=== PATIENT | female | born 1950 | race Caucasian/White ===

== ENCOUNTER → 2017-02-25 | Outpatient (CLI) | payer BC, MEDICARE ==
[2017-02-25 20:51] LABS: Basophils # (A) 0.1 k/uL (0-0.2); Basophils % (A) 1 %; CH 31.1; CHCM 32.7; Eosinophils # (A) 0.7 k/uL (0-0.7); Eosinophils % (A) 8 %; HCT 34.4 % (34.0-46.0); HDW 2.22; HGB 11.6 gm/dL (11.4-16.0); Luc # (Auto) 0.23; Luc % (Auto) 3; Lymphocytes % (A) 23 %; MCH 32.4 pg (25.0-35.0); MCHC 33.9 g/dL (31.0-37.0); MCV 95.5 fL (80.0-100.0); Mean Platelet Volume 7.1; Monocytes # (A) 0.6 k/uL (0-1.0); Monocytes % (A) 7 %; Neutrophils % (A) 58 %; RDW 12.2 % (11.5-15.5); WBC 8.6 k/uL (3.8-10.6); WBC (Perox) 8.87
[2017-02-25 21:08] LABS: Calcium 9.3 mg/dL (8.4-10.2); Potassium 4.5 mmol/L (3.5-5.1); Total Bilirubin 0.3 mg/dL (0.2-1.3); Total Protein 6.5 g/dL (6.3-8.2)
[2017-02-25 21:46] LABS: Erythrocyte Sedimentation Rate 19 mm/hr (0-20)
[2017-02-27 13:58] LABS: Gliadin AB IgA, Deaminated 5 UNITS (<20); Gliadin AB IgG, Deaminated 2 UNITS (<20)
== END | disposition home or self-care (01) ==
LOC: MMGSC 15:18
PROVIDERS: ATTEND Family Medicine
DX: N39.0 Urinary tract infection, site not specified (principal); I10 Essential (primary) hypertension; R19.7 Diarrhea, unspecified
CPT/HCPCS: 36415; 80053; 80061; 82784; 83516; 84439; 84443; 85025; 85652; 87086

== ENCOUNTER 2019-10-28 08:59 | Day surgery (SDC) | payer MEDICARE ==
[2019-10-18 12:39] VITALS: BMI 35.6
[~2019-10-28 08:59] MED LIST: LACTATED RINGERS 1,000 ML IV SCH; LIDOCAINE 1% 20 ML VIAL (10MG/ML) FOR IV START INTRADERMA PRN
[2019-10-28 09:24] VITALS: TEMP 97.7
[2019-10-28 09:24] LABS: Glucose,Whole Blood 124 mg/dL (75-99)
[2019-10-28] MEDS ORDERED: PROPOFOL 10 MG/ML 20 ML VIAL IV ONE (09:54)
--- NOTE | 2019-10-28 10:42 | P.PCN ---
Date of Procedure: 10/28/19 Description of Procedure: BRIEF HISTORY: Patient is a 69-year-old female who presents for outpatient colonoscopy for evaluation of IBS and anemia. Patient has long-standing history of IBS worsening 2-3 loose bowel movements daily. Currently treated with Imodium therapy. Denies any blood per rectum. She believes last colonoscopy was 4 years ago. PROCEDURE PERFORMED: Colonoscopy with biopsies. PREOPERATIVE DIAGNOSIS: Anemia, irritable bowel syndrome, altered bowel function, last colonoscopy 4 years ago per her recollection. ESTIMATED BLOOD LOSS: Minimal. IV sedation per Anesthesia. PROCEDURE: After informed consent was obtained, the patient, was brought into the endoscopy unit. IV sedation was administered by Anesthesia under continuous monitoring. Digital rectal examination was normal. Initially the Olympus CF-190 flexible video colonoscope was then inserted in the rectum, gradually advanced into the cecum without any difficulty. Careful examination was performed as the scope was gradually being withdrawn. Ileocecal valve and the appendiceal orifice were visualized and appeared normal. Prep was excellent. Mucosa of the cecum, ascending colon, transverse colon, descending colon, sigmoid colon, and rectum appeared grossly normal, however there was moderate to severe erythema, nodularity and friability from the cecum to the mid transverse colon. Mild to moderate erythema was noted in the distal half of the transverse colon to the proximal sigmoid colon. The terminal ileum appeared normal with biopsies taken. Biopsies were also taken of the cecum, ascending colon, transverse colon, descending colon, sigmoid and rectum. Retroflexion was performed in the rectum and no lesions were seen. The patient tolerated the procedure well. IMPRESSION: Colitis, with moderate to severe colitis noted in the cecum, ascending and proximal transverse colon and mild to moderate colitis noted in the distal transverse colon, descending colon and proximal sigmoid. Random biopsies taken throughout the colon and terminal ileum. RECOMMENDATIONS: Findings of this examination were discussed with the patient and her [id number]. Patient will be started on a steroid taper. She is okay to resume diet and medications. Recommendation is that she follow up in GI clinic in 1 week for results of biopsies. Further medical management and adjustments to steroid taper will be made at that time based on symptoms as well as finding from biopsies.
[2019-10-28 10:56] VITALS: BP 150/78; PULSE 80; RESP 18
== END 2019-10-28 11:05 | disposition home or self-care (01) ==
LOC: ORWHC2ENDO 08:59
PROVIDERS: ATTEND Internal Medicine
DX: K51.90 Ulcerative colitis, unspecified, without complications (principal); D64.9 Anemia, unspecified; I10 Essential (primary) hypertension; Z79.899 Other long term (current) drug therapy; Z90.49 Acquired absence of other specified parts of digestive tract; Z96.653 Presence of artificial knee joint, bilateral
CPT/HCPCS: 88305; 45380; J2704

== ENCOUNTER → 2020-09-19 | Outpatient (CLI) | payer MEDICARE ==
--- NOTE | 2020-09-19 11:31 | MR ---
EXAMINATION TYPE: MR lumbar spine wo con DATE OF EXAM: 09/19/2020 COMPARISON: Plain film 07/27/2020 HISTORY: Low back pain TECHNIQUE: Multiplanar, multisequence images of the lumbar spine were acquired. L1-L2: Endplate discogenic marrow signal changes are present with associated spondylolysis.. Posterio r extension endplate disc bulge extends circumferentially causes some foraminal encroachment greater on the left than on the right, there is some mild anterior mass effect on the thecal sac, no signific ant spinal stenosis. L2-L3: No significant foraminal encroachment. No spinal stenosis. Posterior disc bulge causes mild an terior mass effect on the thecal sac. There is some facet arthropathy causing posterior lateral mass effect on the thecal sac. L3-L4: Posterior broad-based disc bulge contacts anterior thecal sac. No significant spinal stenosis or foraminal encroachment. Schmorl's node present superior endplate of L3. L4-L5: Listhesis contributes to cause bilateral foraminal encroachment. Facet arthropathy with hypert rophic change and ligamentum flavum causing posterior lateral mass effect on the thecal sac results i n a trefoil appearance of the thecal sac. There is some encroachment on the lateral recesses. Moderat e spinal stenosis is present. Spondylolysis is not seen with certainty. Minimal posterior broad-based disc bulge is present. L5-S1: Listhesis contributes to cause bilateral foraminal encroachment spondylolysis is suspected on the right and not as well seen on the left may be present, could be confirmed with CT. No evident dis c herniation. There is extensive facet arthropathy change. No significant spinal stenosis. Lumbar segments are intact. No paraspinal masses are identified. Conus medullaris has a normal appe arance. There is anterolisthesis grade 1 L5-S1, L4-5, retrolisthesis grade 1 L1-L2. Vacuum phenomenon is present at L1-2, L4-5, L5-S1. Numbering scheme is that of patient's prior plain film, there may b e transitional vertebral body. Loss of disc height signal is present at intervertebral levels with so me sparing of L3-4, L2-3. There is a mild spinal curvature. IMPRESSION: Degenerative disc disease, multilevel foraminal encroachment, facet arthropathy, spinal stenosis as d escribed.
== END | disposition home or self-care (01) ==
LOC: RADMRIMAIN 09:33
PROVIDERS: ATTEND Family Medicine
DX: M48.061 Spinal stenosis, lumbar region without neurogenic claudication (principal); M51.36 Other intervertebral disc degeneration, lumbar region; M47.816 Spondylosis without myelopathy or radiculopathy, lumbar region
CPT/HCPCS: 72148

== ENCOUNTER → 2020-10-18 | Outpatient (CLI) | payer MEDICARE ==
[2020-10-18 08:48] VITALS: BP 106/67; PULSE 112; RESP 16; TEMP 98.5
--- NOTE | 2020-10-18 09:16 | P.CONS ---
History of Present Illness - Reason for Consult Consult date: 10/18/20 - Chief Complaint Lower back pain - History of Present Illness This is a 70-year-old lady with history of lower back pain which started about one year ago with no precipitating events. The pain occasionally radiates down her right leg to the right foot with numbness in both feet as she states. Her pain is mostly axial which is more intense than her right leg pain. She denies any bowel or bladder dysfunction or any weakness in the lower extremities. She also denies any weight loss. The patient denies any nocturnal pain. Her pain is mostly when she stands up and ambulates and goes away when she sits down or lie down in bed. The pain has limited her daily activities. The patient has no history of diabetes and she takes only aspirin with no other anticoagulants. Past Medical History Past Medical History: Deep Vein Thrombosis (DVT), Hypertension, Musculoskeletal Disorder, Osteoarthritis (OA) Additional Past Medical History / Comment(s): DVT IN LEFT LEG- POST OP , ulcerative colitis, hypoglycemia, low back pain History of Any Multi-Drug Resistant Organisms: None Reported Past Surgical History: Appendectomy, Joint Replacement Additional Past Surgical History / Comment(s): RIGHT AND LEFT KNEE REPLACEMENT Past Anesthesia/Blood Transfusion Reactions: Postoperative Nausea & Vomiting (PONV) Smoking Status: Never smoker - Past Family History Mother Family Medical History: Cancer Father Family Medical History: Cancer Sister(s) Family Medical History: Cancer Medications and Allergies Home Medications Medication Instructions Recorded Confirmed Type Aspirin 81 mg PO DAILY 10/18/19 10/12/20 History Cholecalciferol [Vitamin D3 (25 2,000 unit PO DAILY 10/18/19 10/12/20 History Mcg = 1000 Iu)] Enalapril [Vasotec] 10 mg PO DAILY 10/18/19 10/12/20 History Hydrochlorothiazide 12.5 mg PO DAILY 10/18/19 10/12/20 History [hydroCHLOROthiazide] HYDROcodone/APAP 5-325MG [Umpire 1 tab PO TID 10/12/20 10/12/20 History 5-325] Mesalamine [Lialda] 1.2 gm PO AC-TID 10/12/20 10/12/20 History Prochlorperazine [Compazine] 5 mg PO Q8HR PRN 10/12/20 10/12/20 History rOPINIRole HCL [Requip] 1 mg PO HS 10/18/20 10/18/20 History Allergies Allergy/AdvReac Type Severity Reaction Status Date / Time Sulfa (Sulfonamide Allergy skin Verified 10/12/20 12:03 Antibiotics) peeling, burning on "inside" sulfasalazine Allergy skin Verified 10/12/20 12:04 [From Azulfidine] peeling, burning on "inside Physical Exam Vitals: Vital Signs Temp Pulse Resp BP Pulse Ox 10/18/20 08:41 98.5 F 112 H 16 106/67 97 - Constitutional General appearance: morbidly obese - EENT Eyes: PERRLA - Neurologic Neuro exam of the lower extremities showed areflexia bilaterally, normal muscle strength bilaterally Straight leg raising test negative bilaterally Mild tenderness in the lumbar paravertebral musculature bilaterally Decreased range of motion of the lumbar spine with extension but normal with flexion. Neurologic: CNII-XII intact - Psychiatric Psychiatric: A&O x's 3, appropriate affect, intact judgment & insight Results Results: Lumbar spine MRI showed severe degenerative disc disease, bilateral foraminal stenosis at the L4 5 and L5-S1 levels due to listhesis and possible spondylolysis. It also showed facet arthropathy and ligamentum flavum hypertrophy. Assessment and Plan Plan: This is a 70-year-old lady with mostly axial lower back pain and occasional radiation to the right leg with numbness and tingling in the feet bilaterally as she states. Diagnoses: Severe lumbar DDD Lumbar spondylosis without myelopathy Lumbar neural foraminal stenosis We'll plan on doing a lumbar diagnostic medial branch block for levels L4 5 and L5-S1 bilaterally under fluoroscopic guidance. The procedure was explained to the patient and her questions were answered. I thank you for the referral
== END | disposition home or self-care (01) ==
LOC: PNWHC3 08:31
PROVIDERS: ATTEND Anesthesiology
DX: M51.36 Other intervertebral disc degeneration, lumbar region (principal); M47.816 Spondylosis without myelopathy or radiculopathy, lumbar region; M48.061 Spinal stenosis, lumbar region without neurogenic claudication; M19.90 Unspecified osteoarthritis, unspecified site; I82.409 Acute embolism and thrombosis of unspecified deep veins of unspecified lower extremity; I10 Essential (primary) hypertension; Z88.2 Allergy status to sulfonamides; Z79.899 Other long term (current) drug therapy; Z79.891 Long term (current) use of opiate analgesic; Z79.82 Long term (current) use of aspirin
CPT/HCPCS: 99211

== ENCOUNTER 2020-11-17 06:14 | Day surgery (SDC) | payer MEDICARE ==
[2020-11-14 09:36] VITALS: BMI 36.0
[~2020-11-17 06:14] MED LIST changes: -LIDOCAINE 1% 20 ML VIAL (10MG/ML) FOR IV START INTRADERMA PRN
[2020-11-17 07:14] LABS: Glucose,Whole Blood 113 mg/dL (75-99)
[2020-11-17 07:17] VITALS: RESP 16; TEMP 98.4
[2020-11-17] MEDS ORDERED: methylPREDNISolone ACETATE 40 MG/ML 1 ML VIAL ONE (07:40)
[2020-11-17] MEDS ORDERED: MIDAZOLAM 2 MG/2 ML VIAL ONE (07:40)
[2020-11-17] MEDS ORDERED: ROPIVACAINE 5MG/ML 20ML VIAL ONE (07:40)
--- NOTE | 2020-11-17 07:53 | P.PCN ---
Date of Procedure: 11/17/20 Description of Procedure: Procedure: BILATERAL L4-5, L5-S1 Diagnosis: Lumbar spondylosis without myelopathy Anesthesia: Local and IV conscious sedation Imaging: Fluoroscopy was used, images where saved to the medical record The patient was seen and examined in the [facility]. Procedure risks and benefits were fully reviewed with the patient. The patient understands this is a diagnostic if local only is used, as will be the case today. The goal of the procedure is to inject medication onto the medial branch or small nerves that innervate the facet joints. In this way, we can hopefully identify which of these joints, if any, may be contributing to their pain. Informed consent for procedure was obtained. The patient was taken into the office fluoroscopy procedure room and placed prone on the table. A pillow was placed under the abdomen to reduce lumbar lordosis. Vital signs were closely monitored during the procedure. The skin over the area was prepped with Betadine X 3 and draped in usual sterile manner. Sterile technique was observed throughout procedure. Under biplanar fluoroscopic guidance, the target injection area of the L4, L5, Sacral Ala were targeted. A 25 gauge 31/2 inch spinal needle was then placed at the most medial and superior aspect of the transverse process near the "eye of the Mike dog". Aspiration for blood was negative. 1 cc of 0.5% Ropivacaine along with a total of 40 mg of Depo-Medrol was injected into the targeted areas separately. [place] were withdrawn intact. No complications were noted during the procedure. The patient tolerated the procedure well. The patient was placed in supine position and transferred to the recovery area for observation and remained stable until discharged home. Home discharge instructions were given to the patient by the staff. We'll plan to repeat the injection in 2 weeks' time if she has good benefit. I discussed with the patient detail that she should pay attention to her short-term relief during the procedure date. No fentanyl was given today..
[2020-11-17] MEDS ORDERED: IV FLUID CONTINUATION 1,000 ML IV ONE (07:58)
[2020-11-17 08:17] VITALS: BP 119/76; PULSE 92
--- NOTE | 2020-11-17 09:48 | FL ---
Fluoroscopy HISTORY: Pain 8 seconds fluoroscopy time supplied to the referring clinician. 5 intraoperative C-arm images docume nt the procedure. See dictated report from anesthesia.
== END 2020-11-17 08:39 | disposition home or self-care (01) ==
LOC: ORPAIN 06:14
PROVIDERS: ATTEND Hospitalist
DX: M47.816 Spondylosis without myelopathy or radiculopathy, lumbar region (principal); Z88.2 Allergy status to sulfonamides; I10 Essential (primary) hypertension; Z86.718 Personal history of other venous thrombosis and embolism; M19.90 Unspecified osteoarthritis, unspecified site; Z79.82 Long term (current) use of aspirin; Z79.891 Long term (current) use of opiate analgesic; Z79.899 Other long term (current) drug therapy
CPT/HCPCS: 64493; 64494; J2250; J1030; J2795

== ENCOUNTER → 2020-12-06 | Outpatient (CLI) | payer MEDICARE ==
[2020-12-06 10:22] VITALS: BP 119/81; PULSE 109; RESP 16; TEMP 98.3
--- NOTE | 2020-12-06 10:37 | P.PN ---
Subjective Progress Note Date: 12/06/20 This is a follow-up visit for this 70 years old female with a chronic history of severe low back pain, she is the closed with lumbar spondylosis with lumbar facet arthropathy, and lumbar degenerative disc disease and lumbar foraminal stenosis, recently with did diagnostic medial branch block lumbar area at L4 5 and L5-S1, patient didn't get more than 80% improvement in her low back pain after injection on the pain relief was only for short-term, she denies any motor or sensory deficits denies any fever or night sweats and there is no change in the bowel movement or urination Objective - Vital Signs Vital signs: Vital Signs Temp 98.3 F 12/06/20 10:16 Pulse 109 H 12/06/20 10:16 Resp 16 12/06/20 10:16 BP 119/81 12/06/20 10:16 Pulse Ox 99 12/06/20 10:16 - Exam Physical Examinations : -Constitutiona : Cooperative , not in acute distress . -HEENT : nech : supple , no Lymphadenopathy , normal thyroid size . : eyes : no ptosis , no icterus, no photophobia . - neurologic : Cranial nerve II to XII intact , no focal neurological deffecit . -psychatric : alert , oriented X 3 , appropriate affect , intact judgment and insight . -Lymphatic : no Lymphadenopathy . - musculoskeltal : . Lumber spine moter stegnth lower extremities ,thigh and legs 5/5 Right side , 5/5 Left side deep tendon reflexes : normal Knee Jerk , normal ankle Jerk lumber facet Loading Test =positive Right , posiutive Left Range of motion of the lumbar spine Flexion 30 degrees, extension 10 degrees strait leg raising test = positive at 45 degree Fabere test= positive Right , and positive LT . . Assessment and Plan Plan: Assessment and plan=1-lumbar spondylosis with lumbar facet arthropathy without myelopathy 2-lumbar degenerative disc disease. 3-lumbar foraminal stenosis. Patient had excellent pain relief after the first diagnostic medial branch block (80 % ) She will be good candidate to have repeat diagnostic medial branch block at L3, L4, L5 ( 2 target the L4 5, and L5-S1 ). - PQRS measures = - Patient's medications are documented in the chart. -Tobacco use is negative and counseling.Given. -Patient's has not received pneumococcal vaccine. -Advanced care planning discussed, patient not eligible. -Opiate contract not signed. -Pain positive and follow-up visit/procedure is scheduled. -Patient's blood pressure measured [ 119/81] , and documented in the record ,and patient will follow up with the primary care. -Patient's weight was measured and body mass index [ 35 ] above the normal limits and counseling was done. and patient instructed to follow-up with the primary care physician. -Patient was not identified as an unhealthy alcohol user Time with Patient: Less than 30
== END ==
LOC: PNWHC3 10:07
PROVIDERS: ATTEND Specialist
DX: M51.36 Other intervertebral disc degeneration, lumbar region (principal); M48.061 Spinal stenosis, lumbar region without neurogenic claudication; M47.816 Spondylosis without myelopathy or radiculopathy, lumbar region
CPT/HCPCS: 99211

== ENCOUNTER 2021-01-05 07:33 | Day surgery (SDC) | payer MEDICARE ==
[2021-01-02 12:38] VITALS: BMI 35.6
[2021-01-05 08:30] VITALS: TEMP 97
[2021-01-05 08:42] LABS: Glucose,Whole Blood 118 mg/dL (75-99)
[2021-01-05] MEDS ORDERED: LACTATED RINGERS 1,000 ML IV ONE (08:43)
[2021-01-05] MEDS ORDERED: TRIAMCINOLONE ACETONIDE 40 MG/ML 1 ML VIAL ONE (09:10)
[2021-01-05] MEDS ORDERED: IOPAMIDOL M200 10 ML VIAL ONE (09:10)
[2021-01-05] MEDS ORDERED: fentaNYL (PF) 50 MCG/ML 2 ML AMP ONE (09:10)
[2021-01-05] MEDS ORDERED: ROPIVACAINE 5MG/ML 20ML VIAL ONE (09:10)
[2021-01-05] MEDS ORDERED: MIDAZOLAM 2 MG/2 ML VIAL ONE (09:10)
--- NOTE | 2021-01-05 09:25 | P.PCN ---
Date of Procedure: 01/05/21 Description of Procedure: Procedure: BILATERAL L4-5, L5-S1 #2 Diagnosis: Lumbar spondylosis without myelopathy Anesthesia: Local and IV conscious sedation Imaging: Fluoroscopy was used, images where saved to the medical record The patient was seen and examined in the [facility]. Procedure risks and benefits were fully reviewed with the patient. The patient understands this is a diagnostic if local only is used, as will be the case today. The goal of the procedure is to inject medication onto the medial branch or small nerves that innervate the facet joints. In this way, we can hopefully identify which of these joints, if any, may be contributing to their pain. Informed consent for procedure was obtained. The patient was taken into the office fluoroscopy procedure room and placed prone on the table. A pillow was placed under the abdomen to reduce lumbar lordosis. Vital signs were closely monitored during the procedure. The skin over the area was prepped with Betadine X 3 and draped in usual sterile manner. Sterile technique was observed throughout procedure. Under biplanar fluoroscopic guidance, the target injection area of the L4, L5, Sacral Ala were targeted. A 25 gauge 31/2 inch spinal needle was then placed at the most medial and superior aspect of the transverse process near the "eye of the Mike dog". Aspiration for blood was negative. 1 cc of 0.5% Ropivacaine along with a total of 40 mg of Depo-Medrol was injected into the targeted areas separately. [place] were withdrawn intact. No complications were noted during the procedure. The patient tolerated the procedure well. The patient was placed in supine position and transferred to the recovery area for observation and remained stable until discharged home. Home discharge instructions were given to the patient by the staff. We'll plan to repeat the injection in 2 weeks' time if she has good benefit. I discussed with the patient detail that she should pay attention to her short-term relief during the procedure date. No fentanyl was given today..
[2021-01-05] MEDS ORDERED: IV FLUID CONTINUATION 1,000 ML IV ONE (09:30)
[2021-01-05 09:33] VITALS: RESP 16
--- NOTE | 2021-01-05 09:44 | FL ---
EXAMINATION TYPE: FL guided pain mgmt statistic DATE OF EXAM: 01/05/2021 HISTORY: Fluoroscopy time 9 seconds of fluoroscopy provided. IMPRESSION: 1. Fluoroscopy time.
[2021-01-05 09:46] VITALS: BP 132/85; PULSE 82
== END 2021-01-05 10:15 | disposition home or self-care (01) ==
LOC: ORPAIN 07:33
PROVIDERS: ATTEND Anesthesiology
DX: M47.816 Spondylosis without myelopathy or radiculopathy, lumbar region (principal); I10 Essential (primary) hypertension; M19.90 Unspecified osteoarthritis, unspecified site; Z79.899 Other long term (current) drug therapy; Z86.718 Personal history of other venous thrombosis and embolism; Z88.2 Allergy status to sulfonamides
CPT/HCPCS: 64493; 64494; J2250; J3301; J3010; Q9966; J2795

== ENCOUNTER → 2021-01-15 | Outpatient (CLI) | payer MEDICARE ==
[2021-01-15 08:37] VITALS: BP 155/81; PULSE 92; RESP 16; TEMP 97.7
--- NOTE | 2021-01-15 08:48 | P.PN ---
Subjective Progress Note Date: 01/15/21 Violeta a 78-year-old female who presents today for follow-up after having 2 lumbar diagnostic medial branch blocks. She reports that she had greater than 90% relief from her low back pain. She reports injections have improved her quality of life significantly. She is able to do more around the house as well as exercise ride a bike. She is looking forward to having radiofrequency ablation of the lumbar spine. She denies any side effects in the injections. She has no new symptoms. She denies any radiation down her extremities. The back pain is described as low back pain without radiation to the legs. There is pain with standing for long present time or bending forward or extending her spine. The patient describes an aching sensation. She also complains of lower external pain below the knees when she is laying down at night. She reports that sitting the center better standing alleviates her pain. I discussed with her that this could be signs of vascular claudication. She has an appointment with her primary care physician today. I've asked her to specifically asked the doctor about that and potentially order an ultrasound of the lower extremity vasculature to evaluate for peripheral vascular disease. Objective - Vital Signs Vital signs: Vital Signs Temp 97.7 F 01/15/21 08:35 Pulse 92 01/15/21 08:35 Resp 16 01/15/21 08:35 BP 155/81 01/15/21 08:35 Pulse Ox 99 01/15/21 08:35 - Exam General: Awake and alert oriented 3 no distress Respiratory exam: No audible wheezing no accessory muscle usage Cervical spine: Normal alignment, Spurling's negative, facet loading negative, Architectural Technician strength is 5/5, sheikh negative Lumbar spine: Loss of lumbar lordosis, normal alignment, tender to palpation over bilateral paraspinal muscles, facet loading is positive bilaterally. Straight leg raise is negative. Limited range of motion due to pain with flexion, extension and side bending. Neuro exam: Normal sensation in bilateral upper extremities, deep tendon reflexes are 2+ bilateral upper extremities. Normal sensation in bilateral lower extremities. Deep tendon reflexes are 2+ in lower extremities Psych exam: Cooperative, appropriate mood Assessment and Plan Assessment: #1 spondylosis of lumbar without myelopathy #2 obesity #3 possible peripheral vascular disease Plan: We'll schedule her for bilateral radio frequency ablation of the L4 5 and L5-S1 medial branches. We'll ask her to follow-up with her primary care physician regarding potential for vascular claudication. I've explained this to the patient detail. We'll see her back for the procedure as soon as possible I have spent 23 minutes on patient care today. The time was used to review the medical records including relevant urine studies and Prescription history (MAPs), review of the available imaging, evaluation and examination of the patient, coordination of care with the medical staff and if applicable referring physicians, as well as creation of the medical record. Maps were checked and appropriate, opioid start talking form is on file and updated, urine drug screens of been appropriate and have been reviewed.
== END ==
LOC: PNWHC3 08:21
PROVIDERS: ATTEND Hospitalist
DX: M47.816 Spondylosis without myelopathy or radiculopathy, lumbar region (principal); E66.9 Obesity, unspecified; Z68.35 Body mass index [BMI] 35.0-35.9, adult
CPT/HCPCS: 99211

== ENCOUNTER 2021-02-23 06:24 | Day surgery (SDC) | payer MEDICARE ==
[2021-02-21 14:52] VITALS: BMI 36.6
[2021-02-23 07:14] VITALS: RESP 16; TEMP 96.8
[2021-02-23] MEDS ORDERED: LACTATED RINGERS 1,000 ML IV ONE (07:17)
[2021-02-23 07:18] LABS: Glucose,Whole Blood 104 mg/dL (75-99)
[2021-02-23] MEDS ORDERED: MIDAZOLAM 2 MG/2 ML VIAL ONE (08:55)
[2021-02-23] MEDS ORDERED: fentaNYL (PF) 50 MCG/ML 2 ML AMP ONE (08:55)
[2021-02-23] MEDS ORDERED: ROPIVACAINE 5MG/ML 20ML VIAL ONE (08:58)
[2021-02-23] MEDS ORDERED: LIDOCAINE 1% INJ 10MG/ML (20 ML MDV) ONE (08:58)
--- NOTE | 2021-02-23 09:29 | P.PCN ---
Date of Procedure: 02/23/21 Description of Procedure: PREOPERATIVE DIAGNOSIS: Lumbar Spondylosis POSTOPERATIVE DIAGNOSIS: Same PROCEDURES: Radiofrequency ablation of the L3, L4, L5 medial branches with fluoroscopic guidance bilaterally SURGEON: Yony Nieves MD. ANESTHESIA: Lidocaine 1% 5 mL, Moderate sedation with anesthesia team EBL: Minimal Fluoroscopy was used for the procedure and images were saved in the radiology portion of the chart. PROCEDURE INDICATION: The patient with low back pain secondary to lumbar facet arthropathy who had more than 50% relief of pain with previous diagnostic lumbar medial branch block X2. PROCEDURE DESCRIPTION / TECHNIQUE: The patient was seen and identified in the preoperative area. Risks, benefits, complications, including but not limited to risk of infection ,bleeding , allergic reactions to the medications and incomplete pain relief , and alternatives were discussed with the patient, the patient agreed to proceed with the procedure and signed the consent. IV was started. The operative site was marked. Patient was taken to the OR and time out was completed. The patient was placed in the prone position on the procedure table. The lumbar area was prepped and draped in the usual sterile fashion. . Vital signs were closely monitored during the procedure .IV sedation was used during the procedure to decrease patients anxiety. Using AP and then oblique fluoroscopy, the "eye of the Mike dog" corresponding to the connection between the superior and transverse articular processes of the [] L4 and L5 as well as the sacral ala were identified, marked, and localized with 1% lidocaine. Subsequently, an 18 gauge 150 radiofrequency jovon martina with a 10-mm active tip was advanced guided by fluoroscopy to the identified target at each site. Needle positioning was confirmed on AP, oblique and lateral fluoroscopy. Motor testing at 2.5 Hz was done with paraspinal muscle stimulation only, and no radicular symptoms down the legs. Then 1 mL 0.5% bupivacaine was injected in each site. Radiofrequency thermocoagulation at 80 degrees celsius for 90 seconds was then performed. [place] were removed. Sterile dressings were applied. COMPLICATIONS: No acute complications. DISPOSITION / PLANS: The patient was placed in a supine position and transferred to the recovery area in a stable condition for observation and was discharged from the recovery room after meeting discharge criteria. Home discharge instructions given to the patient by the staff. The patient will follow up in clinic in 4 weeks.
[2021-02-23] MEDS ORDERED: IV FLUID CONTINUATION 1,000 ML IV ONE (09:36)
[2021-02-23 09:39] VITALS: PULSE 80
[2021-02-23 10:01] VITALS: BP 131/74
--- NOTE | 2021-02-23 12:39 | FL ---
Fluoroscopy HISTORY: Pain 23 seconds fluoroscopy time supplied to the referring clinician. 6 intraoperative C-arm images docum ent the procedure. See dictated report from anesthesia.
== END 2021-02-23 10:03 ==
LOC: ORPAIN 06:24
PROVIDERS: ATTEND Anesthesiology
DX: M47.816 Spondylosis without myelopathy or radiculopathy, lumbar region (principal); I10 Essential (primary) hypertension; Z86.718 Personal history of other venous thrombosis and embolism; Z87.19 Personal history of other diseases of the digestive system; Z79.899 Other long term (current) drug therapy; Z88.2 Allergy status to sulfonamides; Z88.8 Allergy status to other drugs, medicaments and biological substances
CPT/HCPCS: 64635; 64636; J2250; J2001; J3010; J2795

== ENCOUNTER → 2021-03-26 | Outpatient (CLI) | payer MEDICARE ==
--- NOTE | 2021-03-26 09:58 | P.PN ---
Subjective Progress Note Date: 03/26/21 This is a follow-up visit for this 70 years old female with a chronic history of severe low back pain, she is Diagnosed with lumbar spondylosis with lumbar facet arthropathy, and lumbar degenerative disc disease ,and lumbar foraminal stenosis, status post RFA medial branch block lumbar area at L4 5 and L5-S1, patient d get significant improvement in her low back pain , she continued to have some low back pain with radiation and numbness and tingling sensation in the lower extremities initially at night and especially after activity, she denies any motor or sensory deficits denies any fever or night sweats and there is no change in the bowel movement or urination Physical Examinations : -Constitutiona : Cooperative , not in acute distress . -HEENT : nech : supple , no Lymphadenopathy , normal thyroid size . : eyes : no ptosis , no icterus, no photophobia . - neurologic : Cranial nerve II to XII intact , no focal neurological deffecit . -psychatric : alert , oriented X 3 , appropriate affect , intact judgment and insight . -Lymphatic : no Lymphadenopathy . - musculoskeltal : . Lumber spine moter stegnth lower extremities ,thigh and legs 5/5 Right side , 5/5 Left side deep tendon reflexes : normal Knee Jerk , normal ankle Jerk lumber facet Loading Test =positive Right , posiutive Left Range of motion of the lumbar spine Flexion 30 degrees, extension 10 degrees strait leg raising test = positive at 45 degree Fabere test= positive Right , and positive LT . Tenderness over the sacroiliac joint bilaterally Assessment and Plan Plan: Assessment and plan=1-lumbar spondylosis with lumbar facet arthropathy without myelopathy 2-lumbar degenerative disc disease. 3-lumbar foraminal stenosis. Status post RFA medial branch lumbar area, and currently having radicular symptoms mostly secondary to lumbar degenerative disc disease and lumbar foraminal stenosis, could benefit from lumbar epidural steroid injection at L4 5 or L5-S1 under fluoroscopy guidance. - PQRS measures = - Patient's medications are documented in the chart. -Tobacco use is negative and counseling.Given. -Patient's has not received pneumococcal vaccine. -Advanced care planning discussed, patient not eligible. -Opiate contract not signed. -Pain positive and follow-up visit/procedure is scheduled. -Patient's blood pressure measured [ 159/98 ] , and documented in the record ,and patient will follow up with the primary care. -Patient's weight was measured and body mass index [ 36 ] above the normal limits and counseling was done. and patient instructed to follow-up with the primary care physician. -Patient was not identified as an unhealthy alcohol user
[2021-03-26 10:03] VITALS: BP 159/98; PULSE 90; RESP 18; TEMP 97.7
== END ==
LOC: PNWHC3 09:29
PROVIDERS: ATTEND Specialist
DX: M47.816 Spondylosis without myelopathy or radiculopathy, lumbar region (principal); M51.36 Other intervertebral disc degeneration, lumbar region; M48.061 Spinal stenosis, lumbar region without neurogenic claudication; Z98.890 Other specified postprocedural states; Z88.2 Allergy status to sulfonamides
CPT/HCPCS: 99211

== ENCOUNTER 2021-04-19 06:08 | Day surgery (SDC) | payer MEDICARE ==
[2021-04-16 16:02] VITALS: BMI 36.6
[2021-04-19 06:42] VITALS: RESP 16; TEMP 97.5
[2021-04-19] MEDS ORDERED: ROPIVACAINE 5MG/ML 20ML VIAL ONE (07:11)
[2021-04-19] MEDS ORDERED: TRIAMCINOLONE ACETONIDE 40 MG/ML 1 ML VIAL ONE (07:11)
[2021-04-19] MEDS ORDERED: MIDAZOLAM 2 MG/2 ML VIAL ONE (07:11)
[2021-04-19] MEDS ORDERED: IOPAMIDOL M200 10 ML VIAL ONE (07:11)
[2021-04-19] MEDS ORDERED: fentaNYL (PF) 50 MCG/ML 2 ML AMP ONE (07:11)
--- NOTE | 2021-04-19 07:27 | P.PCN ---
Date of Procedure: 04/19/21 Surgeon: Be Lara Pathology: none sent Condition: stable Disposition: PACU Description of Procedure: PREOPERATIVE DIAGNOSIS: 1-Lumbar radiculopathy /lumbar stenosis 2- Lumber Degenerative Disc Diseases. POSTOPERATIVE DIAGNOSIS: 1-Lumbar radiculopathy/lumbar stenosis 2-Lumbar Degenerative Disc Diseases PROCEDURE 1. Lumbar epidural steroid injection under fluoroscopic guidance at the L4-5 l evel. 2. Lumbar epidurogram. ANESTHESIA: Local with 1% lidocaine; and IV moderate conscious sedation with Versed and fentanyl EBL: Minimal PROCEDURE INDICATION: The patient with low back pain and radiculitis symptoms unresponsive to conservative treatment. Fluoroscopy was used to optimize visualization of the needle placement and to maximize safety. PROCEDURE DESCRIPTION / TECHNIQUE: The patient was seen and identified in the preoperative area. Risks, benefits, complications including but not limited to infections ,bleeding ,allergic reaction to the medications ,nerve damage and not complete pain relief , and alternatives were discussed with the patient. The patient agreed to proceed with the procedure and signed the consent. IV was started, and vital signs were stable. Patient was taken to the OR and time out was completed. The patient was placed in the prone position on procedure table and a pillow was placed under the abdomen to reduce lumbar lordosis. The lumbosacral area was prepped and draped in the usual sterile fashion with ChloraPrep.Patient was closely monitored during the procedure. Conscious sedation was used during the procedure to decrease patients anxiety. Vital signs were monitered during the entire procedure. Using anterior-posterior fluoroscopy, the L4-5 interlaminar space was identified and the skin over this site was marked and then infiltrated with 1% lidocaine subcutaneously. Subsequently, a 20-gauge Tuohy epidural needle was inserted and advanced toward the epidural space using the Loss of resistance to air technique and guided by AP and lateral fluoroscopy. The correct needle position in the epidural space was verified with the injection of 1 mL of the water soluble contrast dye Omnipaque 180 contrast and observing an excellent epidurogram with the epidural spread of the dye, after negative aspiration for blood and CSF and in the absence of paresthesias. Again after negative aspiration, a 8 ml mixture containing 40 mg of Kenalog and 5 ml of preservative free Normal Saline, and 2 ml of preservative free ropivacaine 0.5% solution was injected and a washout of epidurogram was seen. Needle was withdrawn intact, skin was cleansed, and bandages were applied. patient tolerated procedure well and was transferred to PACU in stable condition.A copy of the needle placement picture was saved to the fluoroscopy machine. COMPLICATIONS: None DISPOSITION / PLANS: The patient was placed in a supine position and transferred to the recovery area in a stable condition for observation. There was no evidence of lower extremity motor or sensory deficit after the procedure. Patient was discharged from the recovery room after meeting discharge criteria. Home discharge instructions were given to the patient by the staff. The patient was reexamined prior to discharge. The patient will schedule a follow up in the clinic in 2-4 weeks.
[2021-04-19] MEDS ORDERED: IV FLUID CONTINUATION 1,000 ML IV ONE (07:28)
[2021-04-19 07:44] VITALS: BP 115/74; PULSE 70
--- NOTE | 2021-04-19 09:15 | FL ---
EXAMINATION TYPE: FL guided pain mgmt statistic DATE OF EXAM: 04/19/2021 HISTORY: Fluoroscopy time 7 seconds of fluoroscopy provided. IMPRESSION: 1. Fluoroscopy time.
== END 2021-04-19 08:00 | disposition home or self-care (01) ==
LOC: ORPAIN 06:08
PROVIDERS: ATTEND Anesthesiology
DX: M51.16 Intervertebral disc disorders with radiculopathy, lumbar region (principal); Z88.2 Allergy status to sulfonamides
CPT/HCPCS: 62323; J2250; J3301; J3010; Q9966; J2795

== ENCOUNTER → 2021-05-09 | Outpatient (CLI) | payer MEDICARE ==
[2021-05-09 10:52] VITALS: BP 130/80; PULSE 103; RESP 18; TEMP 98.2
--- NOTE | 2021-05-09 11:01 | P.PAINPG ---
Subjective Progress Note Date: 05/09/21 This is a follow-up visit for this 70 years old female with a chronic history of severe low back pain, she is Diagnosed with lumbar spondylosis with lumbar facet arthropathy, and lumbar degenerative disc disease ,and lumbar foraminal stenosis, status post RFA medial branch block lumbar area at L4 5 and L5-S1, patient d get significant improvement in her low back pain , she continued to have some low back pain with radiation and numbness and tingling sensation in the lower extremities initially at night and especially after activity, she denies any motor or sensory deficits denies any fever or night sweats and there is no change in the bowel movement or urination. Recently had L4-5 OSMANY and it only gave her around 40% relief for a week. Se mentions that the radiofrequency ablations in the past were minimally helpful if at all. Overall she says she manages her pain with [place] as needed and a TENS unit. She says she gets by does her best to be as active as possible. Physical Examinations : -Constitutiona : Cooperative , not in acute distress . -HEENT : nech : supple , no Lymphadenopathy , normal thyroid size . : eyes : no ptosis , no icterus, no photophobia . - neurologic : Cranial nerve II to XII intact , no focal neurological deffecit . -psychatric : alert , oriented X 3 , appropriate affect , intact judgment and insight . -Lymphatic : no Lymphadenopathy . - musculoskeltal : . Lumber spine moter stegnth lower extremities ,thigh and legs 5/5 Right side , 5/5 Left side deep tendon reflexes : normal Knee Jerk , normal ankle Jerk lumber facet Loading Test =positive Right , posiutive Left Range of motion of the lumbar spine Flexion 30 degrees, extension 10 degrees strait leg raising test = positive at 45 degree Fabere test= positive Right , and positive LT . Tenderness over the sacroiliac joint bilaterally Assessment and Plan Plan: Assessment and plan=1-lumbar spondylosis with lumbar facet arthropathy without myelopathy 2-lumbar degenerative disc disease. 3-lumbar foraminal stenosis. Unfortunately our interventions have not been helpful for her. I did talk about seeing a surgeon however given the most of her pain is axial in nature I doubt surgery would be of much help for her. She also does not really want surgery at this time. She says she will just manage with her [place] as needed as well as conservative measures such as home exercises and TENS unit. F/u PRN I have spent 25 minutes on review of the records, review of the imaging available, [id number] interaction with the patient, medication management, follow-up care coordination and record creation. - PQRS measures = - Patient's medications are documented in the chart. -Tobacco use is negative and counseling.Given. -Patient's has not received pneumococcal vaccine. -Advanced care planning discussed, patient not eligible. -Opiate contract not signed. -Pain positive and follow-up visit/procedure is scheduled. -Patient's blood pressure measured [ 159/98 ] , and documented in the record ,and patient will follow up with the primary care. -Patient's weight was measured and body mass index [ 36 ] above the normal limits and counseling was done. and patient instructed to follow-up with the primary care physician. -Patient was not identified as an unhealthy alcohol user Objective - Vital Signs Vital signs: Intake & Output 05/07/21 05/08/21 05/08/21 18:59 06:59 18:59 Weight 90.718 kg PQRS Measure Charge Sheet PQRS Narrative: Smoking Status Never smoker Pain Intensity [Lower Back] 7 Hx Alcohol Use (MH) Yes: RARE Home Medications: Ambulatory Orders Aspirin 81 mg PO DAILY 10/18/19 Cholecalciferol [Vitamin D3 (25 Mcg = 1000 Iu)] 2,000 unit PO DAILY 10/18/19 Enalapril [Vasotec] 10 mg PO DAILY 10/18/19 HYDROcodone/APAP 5-325MG [[place] 5-325] 1 tab PO BID PRN 10/12/20 rOPINIRole HCL [Requip] 1 mg PO HS PRN 10/18/20 Balsalazide Disodium 750 mg PO TID 05/09/21 Controlled Substance Measures - Controlled Substance Measures Is patient prescribed a controlled substance at discharge?: No
== END ==
LOC: PNWHC3 10:43
PROVIDERS: ATTEND Anesthesiology
DX: M47.816 Spondylosis without myelopathy or radiculopathy, lumbar region (principal); M51.36 Other intervertebral disc degeneration, lumbar region; M48.061 Spinal stenosis, lumbar region without neurogenic claudication; Z88.2 Allergy status to sulfonamides
CPT/HCPCS: 99211

== ENCOUNTER → 2022-01-07 | Outpatient (CLI) | payer MEDICARE | END | disposition home or self-care (01) | LOC: LABPAT 10:36 | PROVIDERS: ATTEND Orthopaedic Surgery | DX: Z01.812 Encounter for preprocedural laboratory examination (principal); M43.16 Spondylolisthesis, lumbar region; Z22.322 Carrier or suspected carrier of Methicillin resistant Staphylococcus aureus | CPT/HCPCS: 87070 ==

== ENCOUNTER 2022-01-14 10:00 | Observation (INO) | payer MEDICARE ==
--- NOTE | 2021-12-31 08:10 | P.HPOR ---
History of Present Illness H&P Date: 12/26/21 Chief Complaint: Low back pain, LE weakness, LE Radiculopathy Date of :[birth year] R14Age: 70 year Height: 5'3" Weight: 200 lbs BP:110/64 BMI: 35.43 kg/m2 Occupation: Retired VAS: 7-8 CHIEF COMPLAINT: Lumbar pain HISTORY: Xrays No new xrays taken in office Trauma or injury No Work-Related No Pain description Aching. Location posterior Activity Modification yes , unable to stand or ambulate for extended periods of time. Hand Dominance right DOI: Chronic, no injury or trauma. DOS: None. TREATMENTS COMPLETED: 6 weeks of PT completed? Yes, without improvements. Physician directed home exercise completed? Yes, with no improvements. Medications yes List: Gabapentin which helps her sleep at night Henderson with no improvements to her symptoms. Does take daily Aspirin for hx of post-operative DVT. Mobic 15mg and Flexeril without any improvements. Alternative interventions Chiropractic?: No Brace: No Injections Yes (lumbar facet blocks) How many? 3 Did they help? No RFA: yes , with no improvements. SUBJECTIVE: Patient presents to the office for a pre-op review of the planned L4-S1 MIS decompression and fusion. Since the time of the last appointment the patient denies any improvements to her symptoms. She reports continued dysfunction and inability to complete her daily activities due to pain. Patient reports that she has failed to improve with all conservative modalities and is ready to proceed with the planned procedure. All questions and concerns were addressed and the patient expressed understanding. Additionally the patient continues to deny any bladder or bowel retention/incontinence, and ambulates independently. HPI: Patient last presented to the office on 10/25/2021 for a recheck of her lumbar spine. Since the time of the last appointment the patient reports that her symptoms have not improved. She has trialed the Mobic and Flexeril previously prescribed without ant improvements. Aside from this she denies having trialed any new treatment modalities since the time of the last appointment, noting that she has failed to improve with all conservative treatments trialed thus far. Overall she notes continued severe disability and inability to complete her daily activities due to her symptoms. She is ready to discuss surgical intervention. She continues to deny any bladder or bowel retention/incontinence, no perineal numbness/tingling, and ambulates without the use of any aids. Ms. Te hollis presented to the office on 09/13/2021 for an evaluation of her lumbar back. The patient reports that her symptoms have been ongoing for "many years" and have progressively worsened since their onset. Patient denies any trauma or injury to indicate an exact onset of her symptoms. Regarding her symptoms, the patient reports severe low back pain that is diffuse. She notes that her pain is constant and never wanes. Her symptoms are exacerbated with any standing or ambulation, noting that it is increasingly becoming difficult for her to complete her daily activities like cutting the lawn. She has made activity modifications due to this and is increasingly becoming concerned. As for treatments, she does take Aspirin, Gabapentin, and Henderson with mild improvements to her symptoms. Otherwise she has done a series of 3 lumbar facet block injections as well as a RFA all with no improvements. She denies any bladder or bowel issues, no perineal numbness/tingling, and ambulates without the use of any aides. The patients' past social, medical, family, surgical history, as well as review of systems, have been reviewed. Please refer to the Neurosurgery History and Physical form that has been scanned in to our electronic medical record system. 14 points review of systems completed and as stated in HPI, all other systems reviewed are negative. Review of Systems 14 points review of systems completed and as stated in HPI, all other systems reviewed are negative. All systems: negative Past Medical History Past Medical History: Deep Vein Thrombosis (DVT), Hypertension, Musculoskeletal Disorder, Osteoarthritis (OA) Additional Past Medical History / Comment(s): DVT IN LEFT LEG- POST OP , ulcerative colitis, hypoglycemia, low back pain History of Any Multi-Drug Resistant Organisms: None Reported Past Surgical History: Appendectomy, Joint Replacement Additional Past Surgical History / Comment(s): RIGHT AND LEFT KNEE REPLACEMENT, PAIN CLINIC PROCEDURES Past Anesthesia/Blood Transfusion Reactions: Postoperative Nausea & Vomiting (PONV) Smoking Status: Never smoker - Past Family History Mother Family Medical History: Cancer Father Family Medical History: Cancer Sister(s) Family Medical History: Cancer Medications and Allergies Home Medications Medication Instructions Recorded Confirmed Type Aspirin 81 mg PO DAILY 10/18/19 05/07/21 History Cholecalciferol [Vitamin D3 (25 2,000 unit PO DAILY 10/18/19 05/07/21 History Mcg = 1000 Iu)] Enalapril [Vasotec] 10 mg PO DAILY 10/18/19 05/07/21 History HYDROcodone/APAP 5-325MG [Henderson 1 tab PO BID PRN 10/12/20 05/07/21 History 5-325] rOPINIRole HCL [Requip] 1 mg PO HS PRN 10/18/20 05/07/21 History Balsalazide Disodium 750 mg PO TID 05/09/21 05/09/21 History Allergies Allergy/AdvReac Type Severity Reaction Status Date / Time Sulfa (Sulfonamide Allergy skin Verified 05/07/21 15:53 Antibiotics) peeling, burning on "inside" sulfasalazine Allergy skin Verified 05/07/21 15:53 [From Azulfidine] peeling, burning on "inside Physical Examination Osteopathic Statement: *. No significant issues noted on an osteopathic structural exam other than those noted in the History and Physical/Consult. PHYSICAL EXAMINATION: General: Awake, alert, appropriate for age, in no acute distress. HEENT: No unusual neck masses around region of lateral neck triangle, thyroid, supraclavicular groove Heart: Regular rate and rhythm, normal S1, S2 and no murmur/gallop. Lungs: Clear to auscultation bilaterally with no use of accessory muscles. Extremities: Skin warm and dry without acute lesions, coloration, temperature, skin intact, no tenderness or erythema Integument: Hairy patches: Absent Dorsal skin dimples: Absent Cafe au lait spots: Absent Surgical incisions: No Palpation: Please see Pain drawing on Intake sheet for further detail. Midline spinal tenderness: No E6 Paralumbar tenderness: No E6 Parathoracic tenderness: No E6 Buttocks tenderness: No E6 Special findings: yes Palpable step-off at L4-L5, L5-S1 with no associated pain. POSTURAL and MUSCULO-SKELETAL EVALUATION: Coronal Balance: NEUTRAL Recumbent testing: Patient is able to lay flat on back Sagittal Balance: NEUTRAL Shoulder Profile: LEVEL Pelvic Girdle: LEVEL Neck ROM: UNRESTRICTED Lumbar ROM: RESTRICTED Shoulder ROM: Symmetrical Hip ROM: Symmetrical Knee ROM: Symmetrical Hands: Normal appearance, symmetrical Feet: Normal appearance, Symmetrical VASCULAR STATUS : LEFT RIGHT Wrist Pulses INTACT INTACT Pedal Pulses (Dors. pedis & post.tibialis) INTACT INTACT Color NORMAL NORMAL Edema Absent Absent NEUROLOGIC EXAMINATION: Mental Status:Awake and alert, fully oriented, with normal attention, concentration and memory, and fluent, appropriate speech. Cranial Nerves: I: Olfactory not tested. II: Visual acuity normal, no visual field deficit noted with confrontation. III,IV: Normal pupillary reflexes & intact extraocular movements without nystagmus. V,: Intact symmetrical facial sensation. VII: Intact symmetrical facial motor movement VIII: Hearing intact. IX,X: Intact gag, swallow, & normal voice. XI: Sternocleidomastoid, trapezius function intact. XII: Tongue midline with normal movements. L'hermitte's Sign: Negative / absent Spurling'Sign: Absent bilaterally. Cubital percussion test: Absent bilaterally. Fabio-Tinel sign - Carpal region: Absent bilaterally. Straight Leg Raising: Absent bilaterally. Crossed straight leg raise: negative O8 MOTOR EXAM (0-5/5, N/T) STRENGTH RIGHT LEFT Shoulder Abd (not part of the GIANNI score) 5 5 Elbow Flexors 5 5 Elbow Extensor 5 5 Wrist Dorsiflexors 5 5 Finger Abductor 5 5 Development Officer 5 5 Hip Flexor (Not part of GIANNI Motor score) 4+ 4+ Knee Flexor 5 5 Knee Extensor 5 5 Ankle dorsiflexor 4+ 4+ Ankle plantarflexion 4+ 4+ Extensor hallucis 4+ 4+ REFLEXES(0-4/2, NT) RIGHT LEFT Upper Extremities 2 2 Lower Extremities 2 2 Pathological Reflexes RIGHT LEFT Muir's Absent Absent Clonus Absent Absent Babinski Absent Absent # Indicates mechanical impairment Muscle appearance: Symmetrical, without signs of atrophy or dystrophy. Sensory system (0-4, N/T) Test type RU ROSALIA RL LL Joint-Position 2 2 2 2 Vibration 2 2 2 2 Pain & LT sense 2 2 2 2 Dermatomal Deficit: None None L4 5 L5 Gait and Functional Evaluation: Ambulatory aids: Independent Romberg's test: Intact bilaterally Toe heel walk / heel-toe walk intact while maintaining satisfactory balance? no Squatting/straightening w/o assistance to a min of 60 degree knee flexion? no Single leg stance: not-intact bilaterally Trendelenburg sign negative bilaterally Hand and finger dexterity intact bilaterally? yes Disdiadochokinesis examination negative bilaterally? yes Results Xrays from 09/13/2021 of the lumbar spine and pelvis demonstrate: these were reviewed in office today and demonstrate L4 5 grade 1 spondylolisthesis as well as L5-S1 grade 1 spondylolisthesis. There is hyperlordosis secondary to the segments being kyphotic. There is facet arthrosis noted at L3 to S1. There is disc desiccation L4 5 L5-S1 secondary to this. Above this at L1-L2 there appears to be old compression fractures which have since healed. There is mild segmental kyphosis in these regions secondary to these fractures. They do not seem to be affecting the overall alignment except for segmentally. Segmentally at L4-L5 L5-S1 there is hyperlordosis at L4 5 with kyphosis at L5-S1.no other acute fractures are noted. Coronal alignment is relatively maintained with less than 10 of curvature. Overall PILL mismatch is reasonable however this does not take into account the segmental changes that the patient is having. MRI completed on 09/19/2020 of the lumbar spine demonstrates: this MRI is reviewed and demonstrates similar findings with L4 5 L5-S1 grade 1 spondylolisthesis. There is bilateral foraminal stenosis L4 5 L5-S1 that is moderate to severe. There is central stenosis that is moderate L4 5 and L5-S1. There are boggy facets L4 5 L5-S1 with facet arthrosis ligamental hypertrophy as well as facet hypertrophy. There are no acute fractures or dislocations noted. The aforementioned fractures at L1 and L2 are not as evident on this MRI and it is older. There are degenerative changes in this area however which are noted. Segmental alignments are as noted above or lesions noted MRI completed on 10/01/2021 of the lumbar spine demonstrates: this does redemonstrate similar findings with L4 5 and L5-S1 grade 1 spondylolisthesis which are unstable. There is bilateral foraminal stenosis L4 5 and L5-S1 that is moderate to severe. There are boggy facets L4 5 L5-S1 as well as facet hypertrophy and pars elongation. There is central stenosis at L4 5 and L5-S1 that is moderate. There is ligamental hypertrophy which is noted as well no acute fractures are noted. The previous L1 and L2 fractures appear healed. Assessment and Plan Assessment: It was my pleasure to have seen and examined Violeta. I reviewed the patient's clinical syndrome, physical findings, and imaging studies during the appointment today. It is my impression that the patient has a diagnosis of. 1. L4-L5, L5-S1 grade 1 spondylolisthesis 2.Neurogenic claudication 3.Mechanical back pain 4.Lower extremity radiculopathy 5. Bilateral lower extremity weakness I outlined the natural course history without intervention and various interventional options. Plan: . Based on the severity of the clinical findings and her failure to improve with conservative treatments I discussed treatment options with the patient, including operative and non-operative options, and they have elected to proceed with the following surgical procedure: L4-S1 MIS decompression and fusion The indications, risks, benefits, and alternatives to surgery were discussed with the patient at length. Specifically (but not limited to) the risks of infection, stiffness, recurrence of symptoms, need for revision surgery, local numbness, neurovascular injury, and blood clots were discussed. The patient's questions were answered.The decision to proceed was made. Consent will be obtained for the procedure. 2. Spine Surgery Risk Review Violeta Tiwari is presenting for evaluation of lumbar pain. It was my pleasure to have seen and examined Violeta Tiwari. In our visit today we have had a chance to go over subjective complaints, physical examination findings and treatments including the natural course history without intervention and various interventional options. The patients imaging demonstrates MRI: this does redemonstrate similar findings with L4 5 and L5-S1 grade 1 spondylolisthesis which are unstable. There is bilateral foraminal stenosis L4 5 and L5-S1 that is moderate to severe. There are boggy facets L4 5 L5-S1 as well as facet hypertrophy and pars elongation. There is central stenosis at L4 5 and L5-S1 that is moderate. There is ligamental hypertrophy which is noted as well no acute fractures are noted. The previous L1 and L2 fractures appear healed. Xrays: L4 5 grade 1 spondylolisthesis as well as L5-S1 grade 1 spondylolisthesis. There is hyperlordosis secondary to the segments being kyphotic. There is facet arthrosis noted at L3 to S1. There is disc desiccation L4 5 L5-S1 secondary to this. Above this at L1-L2 there appears to be old compression fractures which have since healed. There is mild segmental kyphosis in these regions secondary to these fractures. They do not seem to be affecting the overall alignment except for segmentally. Segmentally at L4-L5 L5-S1 there is hyperlordosis at L4 5 with kyphosis at L5-S1.no other acute fractures are noted. Coronal alignment is relatively maintained with less than 10 of curvature. Overall PILL mismatch is reasonable however this does not take into account the segmental changes that the patient is having. On physical exam, Violeta Tiwari demonstrates bilateral lower extremity weakness with dermatomal deficits. She is having significant gait issues and difficulty with ambulation due to her symptoms. I have explained to the patient that as their condition progresses it will cause further neurological deficits and eventual paralysis. Based on the patients deyanira ging, physical exam, and the rapid progression and disabling nature of their symptoms, at this time I recommend surgery in the form or a: L4-S1 MIS decompression and fusion . I discussed the risk and benefits of this procedure at length with Violeta Tiwari. The patient agreed to considered pursuing the procedure abovementioned. Prior to surgery, she should follow up with her PCP (Cardio, ID, IM etc) for clearance. Questions were invited and answered, and the patient wishes to proceed as outlined below. Currently, I am recommendin.L4-S1 MIS decompression and fusion 2.Follow up with PCP for surgical clearance 3.Review of surgical risks and benefits as well as an educational packet on the proposed surgical procedure. Risks: All surgical procedures come with inherent risks, including those related to positioning, anesthesia, intraoperative findings, and postoperative complications. It is important to understand that surgery does not come with any guarantee of a successful outcome as complications and adverse events are always possible. The patient was given a handout in office today discussing the surgical procedure and risks associated with the intervention, both of which were discussed with the patient. These risks include but are not limited to the following: * Experiencing same, different or even worse symptoms in back, neck, arms, or legs compared to before surgery. Requiring further surgery or other forms of treatment presently or at some time in the future at same or other levels of the intended spine surgery. On an extreme but fortunately relatively rare basis severe complication such as blindness, stroke, heart attack, temporary and/or permanent nerve injury, paralysis, coma, or may occur, sometimes without known explanation. Surgical complications may include but are not limited to risk of infecti on, fluid accumulation in the surgical dissection site, including a seroma or hematoma, that requires additional surgery, wound drainage, bleeding, new numbness or weakness, vision changes/loss, spinal fluid leakage, non-healing and/or infected incision, headaches, difficulty or inability to swallow, hoarseness, hemopneumothorax, pneumothorax, impotence, retrograde ejaculation, vaginal dryness; injury to nerves, spinal cord, blood vessels, lymphatics or other vital organs (i.e., bowel injury, injury to the great vessels); heterotopic bone formation; complications related to the hardware such as screws, rods, cages including misplaced hardware, device failure, instrumentation at the wrong spine level, hardware fracture/breakage, or hardware loosening; vertebral failure of the spinal column above or below the newly placed hardware; retained surgical instrumentations or devices and the need for further surgery. * Medical risks of the planned spine surgery include but are not limited to generalized Infections to the whole body or local areas outside of the surgical site (sepsis), heart attack, bleeding, anaphylaxis, meningitis, seizure, epilepsy, hearing loss, burn kilgore, laceration of the head or other areas of the body, bruising, hypersensitivity of the skin, bladder over distension; allergic reaction; shoulder injury related to positioning; fat, blood and air clots to other areas of the body like heart, lungs, brain; failure of internal organs such as lungs, kidneys, liver and excessive bleeding. If blood transfusions are necessary, note that transfusions may cause intolerance reactions such as anaphylaxis or other complex reactions. Despite best efforts, the results of spine surgery might not heal in terms of bone, soft tissues such as skin, fascia, ligaments, and joints. Additionally, in order to achieve best possible results, spine surgery may be carried out beyond the initially planned levels and involve decompression, fusion including insertion of hardware at levels other than the original intended area of surgical interest change some portions of the procedure in order to ensure the best possible outcomes. With spine surgery and spinal fusion, there are different off label uses of instrumentation (devices, implants and hardware) as well as biological substances (bone morphogenic proteins, demineralized bone matrix) as well as using extra bone from allograft sources (i.e. cadaver bone) or autograft (iliac crest bone, ribs, or the spine itself). The patient has been given information about these practices and their inherent risks and benefits. [facility] is an educational center that serves as a training facility for neurosurgical and orthopedic WAX [employer]IST and Nursing students. Physician assistants are medically trained surgical providers who function in the outpatient, inpatient, and operating room setting under the direct supervision of the attending surgeon. [facility] has multiple operating rooms with single and overlapping rooms running daily. They currently function under the required guidelines as produced by the [facility] Finance Committee with regards to the overlapping rooms and will continue to comply with changes to this policy as they occur. The requirements include and are complied with as follows: (1) the critical portions of the overlapping rooms will not occur at the same time, (2) the attending physician will be physically present during the critical portions of the procedure and immediately available during the entire case, and (3) a back-up attending is designated should the primary attending not be immediately available. The patient has had a chance to review all the listed information, has been given print outs detailing this information, and has had all his/her questions answered to their satisfaction. It was my pleasure to have seen and examined Violeta Tiwari. In our visit today we have had a chance to go over my understanding of our patient's current c ondition, the natural course history without intervention and various interventional options. Questions were invited and answered, and the patient wishes to proceed as outlined above. I have seen and examined the patient for 25 minutes and we have spent more than 50% of the time in repeat and detailed counseling about the patient's condition, its natural course history with out and as much as can be predicted with surgery and re-review of various surgical treatment options. In conclusion, Violeta Tiwari requested we proceed with the above suggested surgery and are willing to accept risks and limitations of the suggested surgery as nature of the disease process and our best attempts at treatment for the condition. Thank you again for allowing us to be part of your patient's care. Please don't hesitate to contact me if you have any further questions. Signed and authenticated by: [employer] P:\\\\ppart\\\\[id number]\\\\[id number] \\[id number]\\\\[id number] \\\\[id number].PNG \\d [facility] [address] [place] [address]
[2022-01-09 14:06] VITALS: BMI 36.6
[~2022-01-14 10:00] MED LIST changes: +ACETAMINOPHEN TAB 500 MG TAB PO PRN; +GABAPENTIN 300 MG CAP PO PRN; -LACTATED RINGERS 1,000 ML IV SCH; +ONDANSETRON 4 MG/2 ML VIAL IVP PRN; +TRANEXAMIC ACID IN NACL,ISO-OS 1,000 MG in SALINE 1 100ML.BAG IVPB PRN
[2022-01-14] MEDS ORDERED: DEXAMETHASONE SOD PHOSPHATE 4 MG/ML 1 ML VIAL IV ONE (11:10)
[2022-01-14] MEDS ORDERED: MIDAZOLAM 2 MG/2 ML VIAL IV PRN (11:10)
[2022-01-14] MEDS ORDERED: ONDANSETRON 4 MG/2 ML VIAL IVP ONE (11:10)
[2022-01-14] MEDS ORDERED: LIDOCAINE 1% (10MG/ML) FOR IV START INTRADERMA PRN (11:10)
[2022-01-14] MEDS: LACTATED RINGERS 1,000 ML IV SCH (11:30)
[2022-01-14 11:49] LABS: Glucose,Whole Blood 106 mg/dL (75-99)
[2022-01-14] MEDS ORDERED: HYDROmorphone (PF) 1 MG/ML ONE (14:13)
[2022-01-14] MEDS ORDERED: PHENYLEPHRINE-0.9% NACL SYG 1,000 MCG/10 ML SYRINGE ONE (14:13)
[2022-01-14] MEDS ORDERED: SUCCINYLCHOLINE CHLORIDE 100 MG/5 ML SYR IV ONE (14:13)
[2022-01-14] MEDS ORDERED: fentaNYL (PF) 50 MCG/ML 2 ML AMP ONE (14:13)
[2022-01-14] MEDS ORDERED: LIDOCAINE 2% INJ 20 MG/ML (2 ML VIAL) ONE (14:13)
[2022-01-14] MEDS ORDERED: MIDAZOLAM 2 MG/2 ML VIAL ONE (14:13)
[2022-01-14] MEDS ORDERED: TRANEXAMIC ACID IN NACL,ISO-OS 1,000 MG/100 ML BAG ONE (14:13)
[2022-01-14] MEDS ORDERED: ePHEDrine 50 MG/ML 1 ML VIAL ONE (14:13)
[2022-01-14] MEDS ORDERED: PROPOFOL 10 MG/ML 20 ML VIAL IV ONE (14:13)
[2022-01-14] MEDS ORDERED: THROMBIN (BOVINE) 5,000 UNIT VIAL TOPICAL ONE (14:22)
[2022-01-14] MEDS ORDERED: BUPIVACAIN-EPI 0.25%-1:200,000 30 ML VIAL SQ ONE (14:22)
[2022-01-14] MEDS ORDERED: GELATIN SPONGE,ABSORB (SMALL) 1 EACH SPONGE TOPICAL ONE (14:22)
[2022-01-14] MEDS ORDERED: ceFAZolin 1,000 MG in SODIUM CHLORIDE 0.9% 1,000 ML IRRIGATION ONE (15:15)
[2022-01-14] MEDS ORDERED: LACTATED RINGERS 1,000 ML IV ONE ×2 (15:15→18:55)
[2022-01-14] MEDS ORDERED: ceFAZolin 1,000 MG VIAL IVPB ONE (18:25)
[2022-01-14] MEDS ORDERED: VANCOMYCIN 1,000 MG VIAL MISCELLANE ONE (18:42)
[2022-01-14] MEDS ORDERED: SENNOSIDES-DOCUSATE SODIUM 1 EACH TAB PO PRN (19:05)
[2022-01-14] MEDS ORDERED: HYDROmorphone 0.5 MG/0.5 ML SYRINGE IVP PRN (19:05)
[2022-01-14] MEDS ORDERED: ONDANSETRON 4 MG/2 ML VIAL IVP PRN (19:05)
[2022-01-14] MEDS ORDERED: MAGNESIUM HYDROXIDE 2,400 MG/10 ML CUP PO PRN (19:05)
[2022-01-14] MEDS ORDERED: HYDROcodone/APAP 5-325MG 1 EACH TAB PO PRN (19:05)
--- NOTE | 2022-01-14 19:15 | P.PN ---
Progress Note - Text Progress Note Date: 01/14/22 Postop: . Patient seen and examined they are doing well. Still sleepy. Their pain is under control at this time. They are moving all 4 extremities without any issues. Vital signs are stable.. They are currently recovering and will be transferred to the floor once deemed stable by the PACU team and anesthesiologist. No Other issues at this time they deny fever chills shortness of breath or chest pain. Medical management pending Continue with intravenous fluids, pain medication, muscle relaxers, home medication Soft diet to start to advance as tolerated We will evaluate the patient in the morning.
[2022-01-14] MEDS: HYDROmorphone 0.5 MG/0.5 ML SYRINGE IVP PRN ×2 (19:22→19:50)
[2022-01-14] MEDS: HYDROmorphone 1 MG/ML 1 ML SYRINGE IVP PRN (21:15)
[2022-01-14] MEDS: GABAPENTIN 300 MG CAP PO SCH (21:15)
[2022-01-14] MEDS: polyethylene glycoL 3350 17 GM POWD.PACK PO SCH (21:15)
[2022-01-14] MEDS: SODIUM CHLORIDE 0.9% 1,000 ML IV SCH (21:17)
--- NOTE | 2022-01-14 22:06 | XR ---
EXAMINATION TYPE: XR lumbar spine 2 or 3V DATE OF EXAM: 01/14/2022 COMPARISON: NONE HISTORY: Surgery TECHNIQUE: FINDINGS: 6 minutes and 29 seconds of fluoroscopy time was recorded. There are fluoroscopic images ob tained. There is instrument projected over the lumbar spine at the S1 level and also additional image with the instrument projected over the superior aspect of the L4 vertebra. Impression Fluoroscopic guidance.
--- NOTE | 2022-01-14 23:03 | CT ---
EXAMINATION TYPE: CT lumbar spine wo con DATE OF EXAM: 01/14/2022 COMPARISON: MR scan 10/01/2021 HISTORY: post op s/p L4-S1 CT DLP: 1505.7 mGycm Automated exposure control for dose reduction was used. Images obtained from the level of T12-S4 vertebra without contrast. Normal alignment. There is disc prosthesis at L4-5 and L5-S1. There is daisy and screws fusing posterio rly the vertebra from L4 to S1. There is vacuum disc at L1-2 and T12-L1. There is sigmoid diverticulosis. There is apparent left sided laminectomy defect of L4. There is no lumbar paraspinal mass. No definit e epidural fluid collection. There are epidural air bubbles in the spinal canal on the left side post eriorly consistent with recent surgery at the L4 level. Exam limited by metal artifact. No focal bone destruction. IMPRESSION: Postsurgical changes. No definite sign of a complicating process. There is some pleural reaction and atelectasis at the posterior lung bases. Colonic diverticulosis no loretta.
[2022-01-15] MEDS: HYDROmorphone 1 MG/ML 1 ML SYRINGE IVP PRN ×3 (05:18→19:18)
--- NOTE | 2022-01-15 08:11 | FL ---
Fluoroscopy HISTORY: Pain 6 minutes 29 seconds fluoroscopy time supplied to the referring clinician. 12 intraoperative C-arm i mages document the procedure. See dictated report from orthopedic surgery.
[2022-01-15] MEDS: GABAPENTIN 300 MG CAP PO SCH ×3 (08:21→21:08)
--- NOTE | 2022-01-15 08:28 | P.PN ---
Subjective Progress Note Date: 01/15/22 Principal diagnosis: Lumbar spondylolisthesis Patient seen and examined at bedside today. She is resting recumbent in bed. LSO brace is at bedside. Patient states her pain is controlled at this time on current regimen. Ms. Tiwari states she is nervous about eating due to her colitis, that when she has to go, she needs to move quickly. Encouraged patient to request bedside commode. Patient to work with physical therapy today and to sit up in chair with all meals, patient verbalized understanding and is very motivated to do so. Patient requesting to possibly be discharged today; we will reassess later today. Patient denies fever/chills, nausea/vomiting, or chest pain. Objective - Vital Signs Vital signs: Vital Signs Temp 98.1 F 01/15/22 07:59 Pulse 100 01/15/22 07:59 Resp 18 01/15/22 07:59 BP 123/75 01/15/22 07:59 Pulse Ox 93 L 01/15/22 07:59 Intake & Output 01/14/22 01/15/22 01/15/22 18:59 06:59 18:59 Intake Total 2050 1100 Output Total 550 500 Balance 1501 600 Weight 93.4 kg Intake: IV 2050 350 Intake, IV Titration 750 Amount Sodium Chloride 0.9% 1, 750 000 ml @ 75 mls/hr IV . [id number] [facility] Rx#:[id number] Output: Urine 350 500 Estimated Blood Loss 200 Other: Voiding Method Indwelling Catheter - Exam Physical Examination General: The patient is awake and alert, in no acute distress Skin: Skin is warm and dry with no obvious rashes or lesions. Hairy patches absent, no dorsal skin dimples, no cafe au lait spots, x2 surgical incisions paralumbar region, CDI. Eye: Pupils are equal, round and reactive to light, extra-ocular movements are intact; there is normal conjunctiva bilaterally. Neck: The neck is supple, there is no tenderness and ROM intact. Cardiovascular: There is a regular rate and rhythm. No murmur, rub or gallop is appreciated. Respiratory: Lungs are clear to auscultation, respirations are non-labored, breath sounds are equal. Gastrointestinal: Soft, non-distended, non-tender abdomen . Back: There is no tenderness to palpation in the midline and parathoracic. There is tenderness present paralumbar and buttocks region. There is no obvious deformity. . Musculoskeletal: ROM limited secondary to pain and stiffness from surgical procedure. Shoulder abduction 5/5, elbow flexors 5/5, wrist dorsiflexors 5/5. finger abductor 5/5, superintendent measurement 5/5, hip flexor 4/5, knee flexor 4/5, ankle dorsiflexor 4/5, ankle plantarflexion 4/5 and extensor hallucis 4/5. Neurological: CN 2-12 intact. There are no obvious motor or sensory deficits. Movement and coordination equal and intact. Sensory exam to light touch intact C5-T1 and intact from L2-S1. Reflexes 2/4 in bilateral upper and lower extremities. Negative Hoffmans, babinski, and clonus signs. Psychiatric: Cooperative, appropriate mood & affect, normal judgment. - Labs Labs: Abnormal Lab Results - Last 24 Hours (Table) 01/14/22 Range/Units 11:36 POC Glucose (mg/dL) 106 H (75-99) mg/dL Assessment and Plan Assessment: 1. Lumbar spondylolisthesis 2. Postop day 1 status post minimally invasive L4 to S1 transforaminal interbody fusion. Plan: Plan: -Appreciate surgery consultant and team management. -Activity: Ambulate QID, OOB all meals, up and about, limit lifting bending twisting to less than 5 lbs. Use walker or cane if needed for stability. -Daily PT/OT, increase ambulation strength and balance. -Brace when up and about, not needed in bed or chair -Pain control: Adequate at this time -Meds: reviewed -GI ppx: senna, Miralax -DC hunter when up and about, bedside commode if needed. -DVT PPX: OK to restart Heparin tonight. -Hygiene: Shower today. Maintain dressing clean and dry. Meticulous cleaning after BMs away from the incision site -Encourage IS 10x/hr -Dispo: Anticipate discharge home tomorrow with homecare. *I reviewed and discussed this case with my attending Dr. Ayon, whom has reviewed this chart and films and is in agreement with assessment and plan of care as outlined above. I have personally seen and examined the patient, performed the documentation and the assessment and plan as written. Number of minutes spent on the visit: 20 minutes. Time with Patient: Less than 30
[2022-01-15 09:14] LABS: Basophils # (A) 0.03 X 10*3/uL (0.00-0.10); Basophils % (A) 0.3 %; Eosinophils # (A) 0.01 X 10*3/uL (0.04-0.35); Eosinophils % (A) 0.1 %; HCT 29.2 % (37.2-46.3); HGB 8.6 g/dL (12.0-15.0); Immature Grans, Automated 0.4 %; Lymphocytes # (A) 1.07 X 10*3/uL (0.90-5.00); Lymphocytes % (A) 11.6 %; MCH 28.7 pg (27.0-32.0); MCHC 29.5 g/dL (32.0-37.0); MCV 97.3 fL (80.0-97.0); Mean Platelet Volume 9.7 fL (9.5-12.2); Monocytes # (A) 0.82 X 10*3/uL (0.20-1.00); Monocytes % (A) 8.9 %; NRBC Per 100 WBC 0 /100 WBCS (0.0-0.0); Neutrophils # (A) 7.29 X 10*3/uL (1.80-7.70); Neutrophils % (A) 78.7 %; Platelet Count 262 X 10*3/uL (140-440); RDW 16.8 % (11.5-14.5); WBC 9.26 X 10*3/uL (4.50-10.00)
[2022-01-15 09:28] LABS: African American GFR (CKD) 58.1 (60.0-200.0); Anion Gap 9.9 mmol/L (10.00-18.00); BUN/Creat Ratio 20.64 Ratio (12.00-20.00); Blood Urea Nitrogen 22.7 mg/dL (9.0-27.0); Calcium 8.5 mg/dL (8.7-10.3); Carbon Dioxide 24.1 mmol/L (20.0-27.5); Non-African American GFR(CKD) 50.1 (60.0-200.0); Potassium 4.7 mmol/L (3.5-5.5)
[2022-01-15] MEDS ORDERED: HYDROmorphone 0.5 MG/0.5 ML SYRINGE IVP STA (12:07)
[2022-01-15] MEDS: LACTATED RINGERS 1,000 ML IV SCH (12:09)
[2022-01-15] MEDS: SODIUM CHLORIDE 0.9% 1,000 ML IV SCH (12:14)
--- NOTE | 2022-01-15 13:10 | P.CONS ---
History of Present Illness - Reason for Consult Consult date: 01/15/22 Medical Management Requesting physician: Mario Ayon - Chief Complaint Back pain - History of Present Illness History of Presenting Illness: Patient is a very pleasant 71-year-old female with a past medical history of hypertension and neuropathy. She is currently admitted under orthospine surgery team and is status post L4 through S1 decompression with fusion. Surgical procedure was completed by Dr. Ayon on 01/14/22. Patient is postoperative day 1 today. We have been consulted for medical management throughout hospitalization. Patient was seen and fully evaluated at the bedside this morning. Patient was sitting up in chair and appeared to be doing well. Patient reports that she has been having a difficult time with pain control this morning, this was discussed with RN and a one time at a dose of pain medication was administered and RN to notify provider as well as orthospine surgical team if back pain remains uncontrolled. Patient otherwise denies having any other complaints including headache, lightheadedness, dizziness, chest pain, palpitations, shortness of breath, or experiencing any numbness/tingling/weakness in her extremities. Patient does have Cobos catheter in place to dependent drainage with straw-colored urine in collection chamber. Patient denies experiencing postoperative nausea and vomiting and tolerating oral intake. Patient was noted to have acute postoperative blood loss anemia with a hemoglobin of 8.6. No active bleeding noted at this time, postoperative blood loss expected finding. Patient's daughter at bedside and all questions answered at this time. Patient and daughter deny having any further needs or complaints at this time. We will continue to follow patient and monitor closely with repeat a.m. labs. Review of systems: Pertinent positives and negatives as discussed in HPI, a complete review of systems was performed and all other systems are negative. Physical exam: Vital signs reviewed and stable. General: Nontoxic, no distress and appears stated age. Derm: Skin warm and dry, normal coloration for ethnicity. Head: Atraumatic, normocephalic and symmetric. Eyes: EOMs intact, no lid lag, and anicteric sclera Mouth: no lip lesions, mucus membranes moist Cardiovascular: regular rate and rhythm with normal S1S2, no murmur, positive posterior tibial pulses bilaterally, and cap refill < 2 seconds. Lungs: Respirations even, regular, and unlabored on room air. Lungs CTA bilaterally, no rhonchi, no rales, no wheezing, and no accessory muscle usage. Abdominal: soft, nontender to palpation, no guarding, no appreciable organomegaly Ext: ROM intact. No gross muscle atrophy, no edema, no contractures Neuro: Speech clear, face symmetrical and CN II-XII grossly intact with no noted focal neuro deficits Psych: Alert and oriented to person, place, time, and situation. Appropriate and pleasant affect. Assessment and Plan of Care: Acute Postoperative blood loss anemia -Postoperative blood loss is an expected finding, baseline hemoglobin is 11. -No signs of active bleeding at this time, we will continue to monitor closely with repeat a.m. labs and transfuse as needed for hemoglobin less than 7. -Telemetry monitoring. Status post L4 through S1 transforaminal interbody fusion -Management per primary admitting orthospine surgery team including DVT pro phylaxis, pain management, weightbearing, and PT/OT. -Patient currently DVT prophylaxis with SCDs. -Encourage use of incentive spirometry hourly while awake. Hypertension -Monitor vital signs and continue daily medication regimen with Vasotec Neuropathy -Continue daily medication regimen with Requip and Neurontin. Thank you for allowing us to participate in the care of this pleasant patient. Do not hesitate to contact us with questions. Someone can be reached from the [facility] hospitalist group all hours of the day at [phone] or via [employer]. I reviewed the documentation as provided by the AMBROSIO above, who is the original author of this note. I agree with the documented assessment and plan, with the following changes: None Past Medical History Past Medical History: Deep Vein Thrombosis (DVT), Hypertension, Osteoarthritis (OA) Additional Past Medical History / Comment(s): DVT IN LEFT LEG- POST OP , ulcerative colitis, hypoglycemia, low back pain History of Any Multi-Drug Resistant Organisms: None Reported Past Surgical History: Appendectomy, Joint Replacement Additional Past Surgical History / Comment(s): RIGHT AND LEFT KNEE REPLACEMENT, PAIN CLINIC PROCEDURES Past Anesthesia/Blood Transfusion Reactions: Previous Problems w/ Anesthesia, Postoperative Nausea & Vomiting (PONV) Smoking Status: Never smoker - Past Family History Mother Family Medical History: Cancer Father Family Medical History: Cancer Additional Family Medical History / Comment(s): LYMPH NODE CANCER Sister(s) Family Medical History: Cancer Additional Family Medical History / Comment(s): SKIN CANCER Medications and Allergies Home Medications Medication Instructions Recorded Confirmed Type Aspirin 81 mg PO DAILY 10/18/19 01/09/22 History Cholecalciferol [Vitamin D3 (25 2,000 unit PO DAILY 10/18/19 01/09/22 History Mcg = 1000 Iu)] Enalapril [Vasotec] 10 mg PO DAILY 10/18/19 01/09/22 History rOPINIRole HCL [Requip] 1 mg PO HS PRN 10/18/20 01/09/22 History Balsalazide Disodium 2,250 mg PO TID 05/09/21 01/09/22 History Gabapentin [Neurontin] 300 mg PO BID 01/14/22 01/14/22 History Allergies Allergy/AdvReac Type Severity Reaction Status Date / Time Sulfa (Sulfonamide Allergy skin Verified 01/09/22 13:16 Antibiotics) peeling, burning on "inside" sulfasalazine Allergy skin Verified 01/09/22 13:16 [From Azulfidine] peeling, burning on "inside Physical Exam Osteopathic Statement: *. No significant issues noted on an osteopathic structural exam other than those noted in the History and Physical/Consult. Vitals: Vital Signs Temp Pulse Pulse Pulse Resp BP Pulse Ox 01/15/22 07:59 98.1 F 100 18 123/75 93 L 01/15/22 05:00 98.2 F 99 18 138/78 92 L 01/14/22 20:32 65 16 147/69 98 01/14/22 20:18 77 16 148/68 100 01/14/22 20:15 86 16 141/89 98 01/14/22 20:03 79 16 162/75 100 01/14/22 19:45 83 16 168/63 100 01/14/22 19:30 82 16 156/52 100 01/14/22 19:15 90 16 174/84 100 01/14/22 19:09 97 F L 97 16 178/84 100 01/14/22 11:30 98.7 F 85 16 160/88 97 Intake and Output 01/14/22 01/15/22 01/15/22 22:59 06:59 14:59 Intake Total 1351 750 Output Total 550 500 Balance 801 250 Intake: IV 1351 Intake, IV Titration 750 Amount Sodium Chloride 0.9% 1, 750 000 ml @ 75 mls/hr IV . [id number] [facility] Rx#:[id number] Output: Urine 350 500 Estimated Blood Loss 200 Other: Voiding Method Indwelling Catheter Indwelling Catheter Results CBC & Chem 7: 01/15/22 05:43 01/15/22 05:43 Labs: Abnormal Lab Results - Last 24 Hours (Table) 01/14/22 01/15/22 01/15/22 Range/Units 11:36 05:43 05:43 RBC 3.00 L (4.10-5.20) X 10*6/uL Hgb 8.6 L (12.0-15.0) g/dL Hct 29.2 L (37.2-46.3) % MCV 97.3 H (80.0-97.0) fL MCHC 29.5 L (32.0-37.0) g/dL RDW 16.8 H (11.5-14.5) % Eosinophils # 0.01 L (0.04-0.35) X 10*3/uL Anion Gap 9.90 L (10.00-18.00) mmol/L Est GFR (CKD-EPI)AfAm 58.1 L (60.0-200.0) Est GFR (CKD-EPI)NonAf 50.1 L (60.0-200.0) BUN/Creatinine Ratio 20.64 H (12.00-20.00) Ratio Glucose 119 H (70-110) mg/dL POC Glucose (mg/dL) 106 H (75-99) mg/dL Calcium 8.5 L (8.7-10.3) mg/dL
[2022-01-15] MEDS: BALSALAZIDE DISODIUM 750 MG CAPSULE PO SCH ×2 (16:19→21:08)
[2022-01-15] MEDS: polyethylene glycoL 3350 17 GM POWD.PACK PO SCH (21:07)
[2022-01-15] MEDS: HYDROcodone/APAP 10-325MG 1 EACH TAB PO PRN (21:09)
[2022-01-16] MEDS: SODIUM CHLORIDE 0.9% 1,000 ML IV SCH ×3 (02:26→23:28)
[2022-01-16] MEDS: HYDROmorphone 1 MG/ML 1 ML SYRINGE IVP PRN (04:31)
[2022-01-16] MEDS: BALSALAZIDE DISODIUM 750 MG CAPSULE PO SCH ×3 (08:15→21:00)
[2022-01-16] MEDS: CHOLECALCIFEROL 25 MCG (1000 IU) TABLET PO SCH (08:19)
[2022-01-16] MEDS: GABAPENTIN 300 MG CAP PO SCH ×3 (08:19→21:00)
[2022-01-16] MEDS: lisinopriL 20 MG TAB PO SCH (08:19)
--- NOTE | 2022-01-16 08:37 | P.OP ---
Date of Procedure: 01/14/22 Preoperative Diagnosis: 1. L4-L5, L5-S1 grade 1 spondylolisthesis 2.Neurogenic claudication 3.Mechanical back pain 4.Lower extremity radiculopathy 5. Bilateral lower extremity weakness Postoperative Diagnosis: 1. L4-L5, L5-S1 grade 1 spondylolisthesis 2.Neurogenic claudication 3.Mechanical back pain 4.Lower extremity radiculopathy 5. Bilateral lower extremity weakness Procedure(s) Performed: 1. MIS L4-5 combined posteriolateral and interbody fusion (51575) 2. MIS L5-S1 combined posteriolateral and interbody fusion (53065) 3. Insertion of biomechanical device L4 5 and L5-S1 (61039 x2) 4. Segmental instrumentation L4 to S1 (80784) 5. Posterior extradural laminectomy and foraminotomies for decompression of neural elements L4-S1 (29614 x2) 6. Use of intraoperative neuro monitoring 7. Interpretation of intraoperative fluoroscopy less than 1 hour (56592) Implants: -Globus Creo MIS screws -Globus Rise Cage 7-12 8 10 deg -Amplify 9-2 8 deg -Autograft -Allograft -Bio4 Anesthesia: GETA Surgeon: Mario Ayon Tank Erector #1: Julisa Mueller Estimated Blood Loss (ml): 200 IV fluids (ml): 1,000 Urine output (ml): 350 Pathology: none sent Condition: stable Disposition: PACU Indications for Procedure: Violeta Tiwari is presenting for evaluation of lumbar pain. It was my pleasure to have seen and examined Violeta Tiwari. In our visit today we have had a chance to go over subjective complaints, physical examination findings and treatments including the natural course history without intervention and various interventional options. The patients imaging demonstrates MRI: this does redemonstrate similar findings with L4 5 and L5-S1 grade 1 spondylolisthesis which are unstable. There is bilateral foraminal stenosis L4 5 and L5-S1 that is moderate to severe. There are boggy facets L4 5 L5-S1 as well as facet hypertrophy and pars elongation. There is central stenosis at L4 5 and L5-S1 that is moderate. There is ligamental hypertrophy which is noted as well no acute fractures are noted. The previous L1 and L2 fractures appear healed. Xrays: L4 5 grade 1 spondylolisthesis as well as L5-S1 grade 1 spondylolisthesis. There is hyperlordosis secondary to the segments being kyphotic. There is facet arthrosis noted at L3 to S1. There is disc desiccation L4 5 L5-S1 secondary to this. Above this at L1-L2 there appears to be old compression fractures which have since healed. There is mild segmental kyphosis in these regions secondary to these fractures. They do not seem to be affecting the overall alignment except for segmentally. Segmentally at L4-L5 L5-S1 there is hyperlordosis at L4 5 with kyphosis at L5-S1.no other acute fractures are noted. Coronal alignment is relatively maintained with less than 10 of curvature. Overall PILL mismatch is reasonable however this does not take into account the segmental changes that the patient is having. On physical exam, Violeta Tiwari demonstrates bilateral lower extremity weakness with dermatomal deficits. She is having significant gait issues and difficulty with ambulation due to her symptoms. I have explained to the patient that as their condition progresses it will cause further neurological deficits and eventual paralysis. Based on the patients imaging, physical exam, and the rapid progression and disabling nature of their symptoms, at this time I recommend surgery in the form or a: L4-S1 MIS decompression and fusion . I discussed the risk and benefits of this procedure at length with Violeta Tiwari. The patient agreed to considered pursuing the procedure abovementioned. Prior to surgery, she should follow up with her PCP (Cardio, ID, IM etc) for clearance. Questions were invited and answered, and the patient wishes to proceed as outlined below. Currently, I am recommendin.L4-S1 MIS decompression and fusion 2.Follow up with PCP for surgical clearance 3.Review of surgical risks and benefits as well as an educational packet on the proposed surgical procedure. Description of Procedure: The patient was seen and examined in the preoperative area. All preoperative protocols were followed. Informed consent was obtained risks and benefits of the procedure were discussed at length. Risks including bleeding infection damage to the surrounding tissue and risk of reoperation were discussed with the patient. Risk of anesthesia up to and including was a discussed with the patient. These are outlined in the risk review. They were willing to accept these risks and all of the risks of surgery. The patient was given a weight- based dose of antibiotics in the form of 2 g Ancef. The patient was seen and evaluated by the anesthesia team who deemed them fit for surgery. The site was marked, the patient was willing to proceed with the procedure. The patient was transferred to the operative suite by the Department of anesthesia. They were then drifted off to sleep by the department anesthesia and GETA was performed. The patient tolerated this well. Cobos catheter was placed by nursing staff, atraumatically. Once confirmation of lines and ventilation the patient was transferred to a prone Josh table very carefully. All bony prominences including wrists, elbows, axilla, chest, hips, and thighs, and feet were padded very well. Special attention was paid to the genitalia and these were padded accordingly. SCDs were placed on bilateral lower extremities and were connected. Arms were well padded and placed on arm boards up and out in the 90/90 position. Once in position, again we confirmed good ventilation capabilities and that lines were running appropriately. The patient's lumbar spine was then exposed. 1010s were placed outlining the incision site. Standard alcohol was used to clean the incision site and allowed to dry. C-arm was used to biomark the patient and confirm level for incision which was marked with a skin marker. Operative briefing was performed with all teams and everyone in agreement to proceed. The patient was then prepped and draped in a normal sterile fashion. Timeout was then performed and all parties were in agreement with the procedure to be performed. Region proceeded with targeting pedicles on the right-hand side using AP and lateral fluoroscopic imaging. Skin lanette was made and the Jamshidi was introduced into the L4 pedicle advancing it jail into the pedicle and then switching to a lateral position of the fluoroscopy and advancing into the body. This was then replaced with a wire. The screw was then placed over the wire using lateral fluoroscopy. This was then repeated at L5 and S1 on the right- hand side without any issue. The screws were then tested and all screws tested above 20 mA. Once this was accomplished we then turned our attention to decortication of posterior lateral elements on the side high-speed bur was used for posterior lateral decortication. We then turned our attention the left-hand side where a tubular retractor system was placed sequential dilation was taken down under AP and lateral fluoroscopic guidance to the L5-S1 region. This was targeted under AP and lateral fluoroscopy. We then perform limited myomectomy under microscopic guidance and identified the L5-S1 lamina and joints. The eye AP of L5 was removed entirely using high-speed bur and osteotome. This unroofed the S1 S AP which was identified and removed with high-speed bur and a osteotome. We then performed extradural laminectomy laminotomy for decompression of neural elements. Sepsis to identify the midline as well as the dura and exiting and traversing nerve roots. We then placed a nerve root retractor identified the disc space the disc space was entered with a osteotome first under lateral fluoroscopic guidance followed by sequential shaving. Sequential johnny as well as down-biting curettes and endplate scraping was performed. Discectomy was performed which allowed for mobilization of this level. Once good bleeding endplates were encountered we inserted blunt instruments until we achieved our appropriate reduction in size. We then selected an appropriate Amplify cage for this space. We placed autograft allograft and DBM anteriorly within the disc space. Then while protecting neural elements we impacted the cage into position under lateral fluoroscopic guidance. We confirmed it to be in adequate position on the AP imaging as well. The cages then expanded maintained anterior within the disc space and locked into position with a locking screw. The cage was then stable. We then back filled the cage with a small amount of DBM. Then irrigated out this area thoroughly with normal sterile saline perform meticulous hemostasis with FloSeal and hemostatic agents. We then turned our attention to the L4-L5 space which was nearly visible from our L5-S1 space due to the severe collapse and listhesis in this area were able to wand the retractor superior to this area and in doing so were able to decorticate the posterior lateral structures on this side as well at L5-S1 and L4-L5. We then performed decompression at L4-L5 the SAP of L4 was entirely removed with high-speed bur and chisel we then removed the SAP of L5 entirely with high-speed bur and chisel we then performed extradural laminotomy laminectomy ensuring to visualize midline and up and over the top of the dura. This ensured midline structures and opposite side structures were decompressed. We then while protecting neural elements perform sequential shaving in this area. Osteotome was entered and the disc space using lateral fluoroscopic guidance followed by sequential johnny until the desired size and good bleeding endplates had been obtained down-biting curet used to complete discectomy and curettes and pituitary used to remove the disc. We then placed autograft allograft and DBM anteriorly within the disc space a Rise Cage were then selected and while protecting neural M elements was impacted into position under lateral fluoroscopic guidance. His confirmed to be in good position on the AP so we expanded the cage this allowed for good expansion in height reduction as well as listhesis reduction. Cages then locked in place. We then irrigated the wound thoroughly with normal sterile saline and perform meticulous hemostasis. Autograft allograft and DBM was in place and posterior lateral gutters. We then targeted the pedicles on the left-hand side in a similar fashion Erikshidi followed by water followed by screw under lateral and AP fluoroscopic guidance. The screws were then tested and all tested above 20 mA as well. We then subfascially placed 2 rods these were locked into S1 we then sequentially reduced them into L5 and L4 to allow for listhesis reduction at these levels. This was done under lateral fluoroscopic guidance which showed reasonable reduction at both levels. Once these were in position with an final tightened all set screws the tabs were then broken off the screws and removed. We then thoroughly irrigated the wounds with normal sterile saline vancomycin powder placed deep within the wounds were then closed the fascia with #1 Vicryl in a simple fashion followed by the deep subcu tissue with 0 Vicryl superficial subcu tissue with 02 0 Vicryl and the skin with skin dahiana. Wound edges approximated very well the wound was then cleaned and dressed sterilely with Opteform dressings. The patient was transferred back to their hospital bed atraumatically. Patient was then awakened and extubated by the department of anesthesia having tolerated the procedure very well with no complications. They were transferred to the postoperative care unit in stable condition.
--- NOTE | 2022-01-16 10:10 | P.PN ---
Subjective Progress Note Date: 01/16/22 Principal diagnosis: Status post L4-S1 MIS TLIF with decompression Patient is evaluated today at bedside, she is resting her hospital bed. Patient is utilizing the also brace at this time. She has been up and ambulating, she is doing very well with this. She is having a little bit of difficulty with getting out of bed she states that this causes her most of the discomfort in her back. She continues to notice improvement in her low back and lower extremity symptoms. She denies any obvious paresthesias of bilateral lower extremities, she denies any numbness or tingling in the peroneal or genital region. She denies headaches, lightheadedness, chest pain or shortness of breath. Objective - Vital Signs Vital signs: Vital Signs Temp 98.6 F 01/16/22 07:48 Pulse 110 H 01/16/22 09:09 Resp 20 01/16/22 07:48 BP 131/71 01/16/22 07:48 Pulse Ox 94 L 01/16/22 07:48 Intake & Output 01/15/22 01/16/22 01/16/22 18:59 06:59 18:59 Intake Total 950 100 Balance 950 100 Intake: Intake, IV Titration 950 Amount Sodium Chloride 0.9% 1, 900 000 ml @ 75 mls/hr IV . [id number] [facility] Rx#:[id number] ceFAZolin 2 gm In Sodium 50 Chloride 0.9% 50 ml @ 100 mls/hr IVPB Q8HR [facility] Rx# :[id number] Oral 100 Other: Voiding Method Indwelling Catheter Toilet Toilet # Voids 1 3 # Bowel Movements 1 - Exam Gen: AOx3, NAD VSS stable at this time Integument: Optiform dressings are in good position and condition Palpation: Mild tenderness to palpation of the midline and paraspinal lumbar region ROM: Full range of motion in all major muscle groups of the bilateral upper and lower extremities Sensory Exam: Senory exam to light touch is intact C5-T1 Senosry exam to light touch is intact L2-S1 Motor: 45 strength appreciated in the bilateral lower extremities with hip flexion, knee extension, flexion, plantar flexion, dorsiflexion, EHL, FHL Reflexes: 2/4 in all UE and LE Negative Lamb bilaterally, negative Babinski bilaterally, negative clonus bilaterally - Labs CBC & Chem 7: 01/15/22 05:43 01/15/22 05:43 Assessment and Plan Assessment: Postoperative day #2 status post L4-S1 MIS decompression with TLIF Plan: Pain control, continue to utilize oral medications and avoid IV medication as best possible Wound care, will apply new optifoam dressings tomorrow DVT prophylaxis, continue compression stockings and SCDs Continue work with physical therapy, history include ambulation with walker. Patient will be set up with home care upon discharge Out of bed for all meals Medical recommendations Discharge planning: Anticipate discharge to home tomorrow Time with Patient: Less than 30
[2022-01-16 10:56] LABS: HCT 26.5 % (37.2-46.3); HGB 7.7 g/dL (12.0-15.0); MCH 28.4 pg (27.0-32.0); MCHC 29.1 g/dL (32.0-37.0); MCV 97.8 fL (80.0-97.0); Mean Platelet Volume 9.7 fL (9.5-12.2); NRBC Per 100 WBC 0 /100 WBCS (0.0-0.0); Platelet Count 207 X 10*3/uL (140-440); RBC 2.71 X 10*6/uL (4.10-5.20); WBC 10.77 X 10*3/uL (4.50-10.00)
[2022-01-16 11:04] LABS: African American GFR (CKD) 52.3 (60.0-200.0); Albumin 3.1 g/dL (3.8-4.9); Albumin/Globulin Ratio 1.55 (1.60-3.17); Anion Gap 7.6 mmol/L (10.00-18.00); BUN/Creat Ratio 18.67 Ratio (12.00-20.00); Blood Urea Nitrogen 22.4 mg/dL (9.0-27.0); Calcium 8.1 mg/dL (8.7-10.3); Carbon Dioxide 24.4 mmol/L (20.0-27.5); Magnesium 1.7 mg/dL (1.5-2.4); Non-African American GFR(CKD) 45.1 (60.0-200.0); Potassium 4.6 mmol/L (3.5-5.5); Total Bilirubin 0.5 mg/dL (0.30-1.20); Total Protein 5.1 g/dL (6.2-8.2)
[2022-01-16] MEDS: LACTATED RINGERS 1,000 ML IV SCH (11:21)
[2022-01-16] MEDS: HYDROcodone/APAP 10-325MG 1 EACH TAB PO PRN ×2 (11:42→21:00)
[2022-01-16] MEDS ORDERED: MAGNESIUM OXIDE 400 MG TAB PO STA (16:23)
--- NOTE | 2022-01-16 16:31 | P.PN ---
Subjective Progress Note Date: 01/16/22 History of Presenting Illness: Patient is a very pleasant 71-year-old female with a past medical history of hypertension and neuropathy. She is currently admitted under orthospine surgery team and is status post L4 through S1 decompression with fusion. Surgical procedure was completed by Dr. Ayon on 01/14/22. Patient is postoperative day 1 today. We have been consulted for medical management throughout hospitalization. Patient was seen and fully evaluated at bedside this morning. Upon assessment patient resting comfortably in bed with TLSO brace in place. She reports currently postoperative pain is controlled with current pain medication regimen. Patient does report mild pain/discomfort but states much better than she felt yesterday. Patient reports that she has been ambulating with assistance to and from the restroom. Patient states she is urinating without any difficulties and continues to deny having any postoperative nausea or vomiting. Patient further denies experiencing any headache, lightheadedness, dizziness, chest pain, palpitations, shortness of breath, or experiencing any numbness/tingling/weakness in her extremities. Morning labs reviewed and revealed mild leukocytosis with WBC count of 10.77 and hemoglobin of 7.7. Patient denies having any noted bleeding, dressing clean dry and intact with no signs of bleeding or drainage. RN reports assisting patient to bathroom and patient having normal soft formed bowel movement with no dark coloration or blood noted. At this time we will continue to monitor hemoglobin with repeat a.m. labs. RN instructed if patient has any episodes of bleeding, we will repeat with stat CBC at that time. Magnesium 1.7 and orders placed for replacement. Physical exam: Vital signs reviewed and stable. General: Nontoxic, no distress and appears stated age. Derm: Skin warm and dry, normal coloration for ethnicity. Head: Atraumatic, normocephalic and symmetric. Eyes: EOMs intact, no lid lag, and anicteric sclera Mouth: no lip lesions, mucus membranes moist Cardiovascular: regular rate and rhythm with normal S1S2, no murmur, positive posterior tibial pulses bilaterally, and cap refill < 2 seconds. Lungs: Respirations even, regular, and unlabored on room air. Lungs CTA bilaterally, no rhonchi, no rales, no wheezing, and no accessory muscle usage. Abdominal: soft, nontender to palpation, no guarding, no appreciable organomegaly Ext: ROM intact. No gross muscle atrophy, no edema, no contractures Neuro: Speech clear, face symmetrical and CN II-XII grossly intact with no noted focal neuro deficits Psych: Alert and oriented to person, place, time, and situation. Appropriate and pleasant affect. Assessment and Plan of Care: Acute Postoperative blood loss anemia -Postoperative blood loss is an expected finding, baseline hemoglobin is 11. -No signs of active bleeding at this time, we will continue to monitor closely with repeat a.m. labs and transfuse as needed for hemoglobin less than 7. -Telemetry monitoring. Status post L4 through S1 transforaminal interbody fusion with decompression -Management per primary admitting orthospine surgery team including DVT prophylaxis, pain management, weightbearing, and PT/OT. -Patient currently DVT prophylaxis with SCDs. -Encourage use of incentive spirometry hourly while awake. Hypomagnesemia -Replaced, we will continue to monitor with repeat a.m. labs. Hypertension -Monitor vital signs and continue daily medication regimen with Vasotec Neuropathy -Continue daily medication regimen with Requip and Neurontin. Thank you for allowing us to participate in the care of this pleasant patient. Do not hesitate to contact us with questions. Someone can be reached from the [facility] hospitalist group all hours of the day at [phone] or via [employer]. I reviewed the documentation as provided by the AMBROSIO above, who is the original author of this note. I agree with the documented assessment and plan, with the following changes: None Objective - Vital Signs Vital signs: Vital Signs Temp 98.6 F 01/16/22 07:48 Pulse 110 H 01/16/22 07:48 Resp 20 01/16/22 07:48 BP 131/71 01/16/22 07:48 Pulse Ox 94 L 01/16/22 07:48 Intake & Output 01/15/22 01/16/22 01/16/22 18:59 06:59 18:59 Intake Total 950 100 Balance 950 100 Intake: Intake, IV Titration 950 Amount Sodium Chloride 0.9% 1, 900 000 ml @ 75 mls/hr IV . [id number] [facility] Rx#:[id number] ceFAZolin 2 gm In Sodium 50 Chloride 0.9% 50 ml @ 100 mls/hr IVPB Q8HR [facility] Rx# :[id number] Oral 100 Other: Voiding Method Indwelling Catheter Toilet Toilet # Voids 1 - Labs CBC & Chem 7: 01/16/22 06:01 01/16/22 06:01 Labs: Abnormal Lab Results - Last 24 Hours (Table) 01/15/22 01/15/22 Range/Units 05:43 05:43 RBC 3.00 L (4.10-5.20) X 10*6/uL Hgb 8.6 L (12.0-15.0) g/dL Hct 29.2 L (37.2-46.3) % MCV 97.3 H (80.0-97.0) fL MCHC 29.5 L (32.0-37.0) g/dL RDW 16.8 H (11.5-14.5) % Eosinophils # 0.01 L (0.04-0.35) X 10*3/uL Anion Gap 9.90 L (10.00-18.00) mmol/L Est GFR (CKD-EPI)AfAm 58.1 L (60.0-200.0) Est GFR (CKD-EPI)NonAf 50.1 L (60.0-200.0) BUN/Creatinine Ratio 20.64 H (12.00-20.00) Ratio Glucose 119 H (70-110) mg/dL Calcium 8.5 L (8.7-10.3) mg/dL
[2022-01-16] MEDS: CYCLOBENZAPRINE 5 MG TAB PO PRN (16:40)
[2022-01-16] MEDS: polyethylene glycoL 3350 17 GM POWD.PACK PO SCH (20:23)
[2022-01-16 21:35] VITALS: RESP 20
[2022-01-17] MEDS: HYDROcodone/APAP 10-325MG 1 EACH TAB PO PRN (03:07)
[2022-01-17 05:14] VITALS: PULSE 100; TEMP 98.5
--- NOTE | 2022-01-17 08:33 | P.PN ---
Subjective Progress Note Date: 01/17/22 Principal diagnosis: Lumbar spondylolisthesis Patient seen and examined today. Patient lying in bed, awaiting breakfast. She states that she has ambulated independently to restroom without difficulty. LSO brace is present at bedside. Patient states that the pain that was in the right lower extremity has improved. Patient denies any numbness tingling to bilateral lower extremities or bladder/bowel incontinence. She feels her pain is being managed on current regimen. Ms. Tiwari is requesting to be discharged today. Patient denies any fever/chills, nausea/vomiting, or chest pain. Objective - Vital Signs Vital signs: Vital Signs Temp 98.5 F 01/17/22 04:30 Pulse 100 01/17/22 04:30 Resp 20 01/17/22 04:30 BP 95/61 01/17/22 04:30 Pulse Ox 91 L 01/17/22 04:30 Intake & Output 01/16/22 01/17/22 01/17/22 18:59 06:59 18:59 Intake Total 900 100 Balance 900 100 Intake: Intake, IV Titration 900 Amount Sodium Chloride 0.9% 1, 900 000 ml @ 75 mls/hr IV . [id number] [facility] Rx#:[id number] Oral 100 Other: Voiding Method Toilet Toilet # Voids 1 1 # Bowel Movements 1 1 - Exam Physical Examination General: The patient is awake and alert, in no acute distress Skin: Skin is warm and dry with no obvious rashes or lesions. Hairy patches absent, no dorsal skin dimples, no cafe au lait spots, x2 surgical incisions paralumbar region, CDI. Eye: Pupils are equal, round and reactive to light, extra-ocular movements are intact; there is normal conjunctiva bilaterally. Neck: The neck is supple, there is no tenderness and ROM intact. Cardiovascular: There is a regular rate and rhythm. No murmur, rub or gallop is appreciated. Respiratory: Lungs are clear to auscultation, respirations are non-labored, breath sounds are equal. Gastrointestinal: Soft, non-distended, non-tender abdomen . Back: There is no tenderness to palpation in the midline and parathoracic. There is tenderness present paralumbar and buttocks region. There is no obvious deformity. . Musculoskeletal: ROM limited secondary to pain and stiffness from surgical procedure. Shoulder abduction 5/5, elbow flexors 5/5, wrist dorsiflexors 5/5. finger abductor 5/5, food assembler kitchen 5/5, hip flexor 4/5, knee flexor 4/5, ankle dorsiflexor 4/5, ankle plantarflexion 4/5 and extensor hallucis 4/5. Neurological: CN 2-12 intact. There are no obvious motor or sensory deficits. Movement and coordination equal and intact. Sensory exam to light touch intact C5-T1 and intact from L2-S1. Reflexes 2/4 in bilateral upper and lower extremities. Negative Hoffmans, babinski, and clonus signs. Psychiatric: Cooperative, appropriate mood & affect, normal judgment. - Labs CBC & Chem 7: 01/16/22 06:01 01/16/22 06:01 Labs: Abnormal Lab Results - Last 24 Hours (Table) 01/16/22 01/16/22 Range/Units 06:01 06:01 WBC 10.77 H (4.50-10.00) X 10*3/uL RBC 2.71 L (4.10-5.20) X 10*6/uL Hgb 7.7 L (12.0-15.0) g/dL Hct 26.5 L (37.2-46.3) % MCV 97.8 H (80.0-97.0) fL MCHC 29.1 L (32.0-37.0) g/dL RDW 17.0 H (11.5-14.5) % Anion Gap 7.60 L (10.00-18.00) mmol/L Est GFR (CKD-EPI)AfAm 52.3 L (60.0-200.0) Est GFR (CKD-EPI)NonAf 45.1 L (60.0-200.0) Glucose 115 H (70-110) mg/dL Calcium 8.1 L (8.7-10.3) mg/dL Alkaline Phosphatase 128 H (41-126) U/L Total Protein 5.1 L (6.2-8.2) g/dL Albumin 3.1 L (3.8-4.9) g/dL Albumin/Globulin Ratio 1.55 L (1.60-3.17) g/dL Assessment and Plan Assessment: 1. Lumbar spondylolisthesis 2. Postop day 3 status post minimally invasive L4 to S1 transforaminal interbody fusion. Plan: Plan: -Appreciate sales enablement consultant and team management. -Activity: Ambulate QID, OOB all meals, up and about, limit lifting bending twisting to less than 5 lbs. Use walker or cane if needed for stability. -Daily PT/OT, increase ambulation strength and balance. -Brace when up and about, not needed in bed or chair -Pain control: Adequate at this time -Meds: reviewed -GI ppx: senna, Miralax -DC hunter when up and about, bedside commode if needed. -DVT PPX: Heparin -Hygiene: Maintain dressing clean and dry. Meticulous cleaning after BMs away from the incision site -Encourage IS 10x/hr -Dispo: Anticipate discharge home today 01/17/22 with homecare. *I reviewed and discussed this case with my attending Dr. Ayon, whom has reviewed this chart and films and is in agreement with assessment and plan of care as outlined above. I have personally seen and examined the patient, performed the documentation and the assessment and plan as written. Number of minutes spent on the visit: 20 minutes. Time with Patient: Less than 30
[2022-01-17 09:16] VITALS: BP 144/81
[2022-01-17] MEDS: CHOLECALCIFEROL 25 MCG (1000 IU) TABLET PO SCH (09:16)
[2022-01-17] MEDS: GABAPENTIN 300 MG CAP PO SCH (09:17)
[2022-01-17] MEDS: lisinopriL 20 MG TAB PO SCH (09:17)
[2022-01-17] MEDS: BALSALAZIDE DISODIUM 750 MG CAPSULE PO SCH (09:17)
[2022-01-17] MEDS: CYCLOBENZAPRINE 5 MG TAB PO PRN (09:28)
[2022-01-17 10:53] LABS: HCT 24.7 % (37.2-46.3); HGB 7.4 g/dL (12.0-15.0); MCH 29.2 pg (27.0-32.0); MCV 97.6 fL (80.0-97.0); Mean Platelet Volume 9.7 fL (9.5-12.2); NRBC Per 100 WBC 0 /100 WBCS (0.0-0.0); Platelet Count 205 X 10*3/uL (140-440); RBC 2.53 X 10*6/uL (4.10-5.20); RDW 16.8 % (11.5-14.5); WBC 9.95 X 10*3/uL (4.50-10.00)
[2022-01-17 11:08] LABS: African American GFR (CKD) 65.2 (60.0-200.0); Albumin 2.8 g/dL (3.8-4.9); Albumin/Globulin Ratio 1.27 (1.60-3.17); Anion Gap 9.6 mmol/L (10.00-18.00); BUN/Creat Ratio 19.5 Ratio (12.00-20.00); Blood Urea Nitrogen 19.5 mg/dL (9.0-27.0); Calcium 8.1 mg/dL (8.7-10.3); Carbon Dioxide 23.4 mmol/L (20.0-27.5); Globulin 2.2 g/dL (1.6-3.3); Non-African American GFR(CKD) 56.2 (60.0-200.0); Potassium 3.9 mmol/L (3.5-5.5); Total Bilirubin 0.5 mg/dL (0.30-1.20)
[2022-01-17] MEDS: LACTATED RINGERS 1,000 ML IV SCH (12:15)
--- NOTE | 2022-01-17 12:18 | P.DS ---
Providers Date of admission: 01/15/22 07:24 Expected date of discharge: 01/17/22 Attending physician: Mario Ayon DO Consults: 01/14/22 19:10 Consult Physician Routine Consulting Provider: Jazmine Sterling Consult Reason/Comments: Medical Management Do you want consulting provider notified?: Yes [facility] Course: Hospital Course: The patient was evaluated preoperatively and found to have the diagnosis of lumbar spondylolisthesis. They underwent appropriate preoperative care and were willing to undergo the intended procedure. They underwent a successful MIS L4 to S1 transforaminal interbody fusion, were recovered appropriately and sent to the floor. While on the floor they worked with physical therapy, occupational therapy and nursing to enhance their recovery experience. Their pain was well controlled through their stay and they were started on appropriate medications, DVT ppx modalities, activity and dietary needs. Daily labs were monitored closely, and transfusions were only used when necessary. Medicine as well as other consulting services have made their input and have helped with our team approach and multidisciplinary care. PT milestones have been met and passed and they have made the recommendation of home with home care for this patient and treating providers agree with this care path. The patient will be discharged home with appropriate medications, instructions and follow-up information and in stable condition. Patient Condition at Discharge: Good Plan - Discharge Summary Discharge Rx Participant: No New Discharge Prescriptions: New Cyclobenzaprine [Flexeril] 5 mg PO TID #90 tablet Gabapentin 300 mg PO TID #90 cap Sennosides/Docusate Sodium [Senna Plus 8.6-50 mg Tablet] 1 each PO DAILY PRN #20 tablet PRN Reason: Constipation cefaDROXiL [Duricef] 500 mg PO Q12HR 5 Days #10 cap Polyethylene Glycol 3350 [Miralax] 17 gm PO DAILY PRN #527 gm PRN Reason: Constipation HYDROcodone/APAP 7.5-325MG [[place] 7.5-325] 1 tab PO Q4-6H PRN #56 tab PRN Reason: Pain No Action Aspirin 81 mg PO DAILY Enalapril [Vasotec] 10 mg PO DAILY Cholecalciferol [Vitamin D3 (25 Mcg = 1000 Iu)] 2,000 unit PO DAILY rOPINIRole HCL [Requip] 1 mg PO HS PRN PRN Reason: restless legs Balsalazide Disodium 2,250 mg PO TID Gabapentin [Neurontin] 300 mg PO BID Discharge Medication List Aspirin 81 mg PO DAILY 10/18/19 [History] Cholecalciferol [Vitamin D3 (25 Mcg = 1000 Iu)] 2,000 unit PO DAILY 10/18/19 [History] Enalapril [Vasotec] 10 mg PO DAILY 10/18/19 [History] rOPINIRole HCL [Requip] 1 mg PO HS PRN 10/18/20 [History] Balsalazide Disodium 2,250 mg PO TID 05/09/21 [History] Gabapentin [Neurontin] 300 mg PO BID 01/14/22 [History] Cyclobenzaprine [Flexeril] 5 mg PO TID #90 tablet 01/17/22 [Rx] Gabapentin 300 mg PO TID #90 cap 01/17/22 [Rx] HYDROcodone/APAP 7.5-325MG [[place] 7.5-325] 1 tab PO Q4-6H PRN #56 tab 01/17/22 [Rx] Polyethylene Glycol 3350 [Miralax] 17 gm PO DAILY PRN #527 gm 01/17/22 [Rx] Sennosides/Docusate Sodium [Senna Plus 8.6-50 mg Tablet] 1 each PO DAILY PRN #20 tablet 01/17/22 [Rx] cefaDROXiL [Duricef] 500 mg PO Q12HR 5 Days #10 cap 01/17/22 [Rx] Follow up Appointment(s)/Referral(s): [facility], [NON-STAFF] - 1 Week Activity/Diet/Wound Care/Special Instructions: Spine Discharge and Recovery Instructions Date of Surgery: 01/14/2022 Diagnosis: Lumbar spondylolisthesis Procedure: MIS L4 to S1 transforaminal interbody fusion Medications: See medication list All medication refills should be obtained through your primary care doctor or your clinic spine surgeon. Please discuss prescription refills at your follow up appointment. Do not call the hospital for medication refills. Dressing: Leave your dressing in place for a total of 5 days post operatively. Then you may remove your dressing and leave open to air. Keep the area clean and if not able to keep area clean, then cover with sterile gauze and tape. Showering: You may shower 3 days after your procedure allowing soap and water to run over incision. Do not scrub. Do not soak. Blot dry. Follow up: Please confirm a follow up appointment with your surgeon 3 weeks post operatively. Please make an appointment to follow up with your PCP in 1-2 weeks after surgery for evaluation 3 phase, 3-week plan POST OP WEEKS 1-3 1. Lifting/carrying/pushing/pulling limited to less than 5 pounds. 2. Do not sit for longer than 15 minutes at one time. Get up and walk around. Prolonged sitting is NOT advised. If you lay down, see if you can tolerate laying down on you front (belly side) 3. Walk for periods of 15 minutes = 1 mile but no longer; do it multiple times times each day. 4. Ice your low back after activity. POST OP WEEKS 3-6 1. Lifting limited to less than 20 pounds. 2. Do not sit for longer than 30 minutes at a time. Frequently change positions. Use a sit-to stand workstation or take frequent breaks from sitting if you have returned to work. 3. Walk for 30 minutes each day. If possible, do these three or more times a day POST OP WEEKS 6+ At your 6-week appointment we will give you a physical therapy referral to focus on a core stabilization and strengthening program. You should also work on leg & buttock strengthening, hamstring & quadriceps stretching, and continue a low impact aerobic activity program such as swimming, walking, or riding a stationary bicycle. During the initial 6 weeks after your surgery, you are at the highest risk of re-injuring your spine. You should generally avoid BLTs (bending, lifting and twisting combination motions) and follow the above guidelines to reduce the chance of reinjury. You can anticipate post op appointments in our office at approximately 3 weeks and 6 weeks after your surgery. INCISION CARE: If your incision is not draining you do NOT need to cover it with a dressing. Keep your incision clean, dry and intact. In most cases, we apply skin glue, dahiana or sutures to the incision at the time of surgery. This will be like a crust or have the appearance of a scab and will fall off in time on its own. The stitches or dahiana need to be removed at 3 weeks post op appointment. You may begin to shower 3 days after surgery (this allows the glue to stratton well). However, please avoid scrubbing the incision site or peeling off any of the skin glue. This will ensure optimal healing of your incision. Also, during this time avoid soaking the incision area in water - this includes swimming pools, hot tubs or baths. No ointments, lotions or oils on the incision until your surgeon allows. Leave dahiana, sutures or glue in place. Neurological dysfunction that comes on suddenly can also be a sign of a stroke. Below some common symptoms of a stroke are listed: B - balance difficulty such as sudden onset walking or leaning to one side - NEW E - eye problem such as sudden double vision or trouble seeing on one side - NEW F - Facial weakness or numbness on one side - NEW A - Arm or leg weakness or numbness on one side - NEW S - Slurred speech or difficulty with word finding - NEW T - Time is BRAIN! Call 911 as soon as you recognize these symptoms Diet: Consume a regular diet rich in vegetables and lean protein such as chicken or fish. You should consume in a ratio of approximately 20% fats|40% carbohydrates|40%protein. Vegetables, sweet potatoes, brown rice or quinoa are examples of good carbohydrates. Chips, white bread, cookies and sweets/sugar are examples of bad carbohydrates. Limit your bad carbs, go wild with good carbs. "Life's Simple 7" Guidelines as per [place] [employer] These will help you reclaim your life after surgery and signal helper in your recovery, keeping in mind your restrictions. (1) Get Active. Physical activity can help people lose weight, control high blood pressure and cholesterol, feel emotionally better, and sleep better. (2) Control Cholesterol. Avoid a diet high in saturated fat, trans fat, & cholesterol. Limit whole milk & cream, ice cream, butter, egg yolks, processed meats (like sausage and hot dogs), and fatty meats. Choose healthy foods that are low in saturated fat, trans fat and cholesterol which include: Fruits and vegetables, fiber rich grain products (like whole grain pasta and brown rice), lean meat such as chicken, fish, nuts, seeds, and legumes. (3) Eat Better. Eat small portions. Shop at the grocery with a list and do not stray from it. Tips for a healthy diet include: Limit sodium intake to less than 1500mg daily, avoid prepackaged, processed, and fast foods, choose a diet rich in fruits, vegetables, and whole grain, high fiber foods, and limit saturated & cholesterol in your diet. (4) Manage Blood Pressure. If you have high blood pressure, you should have a cuff at home so that you can check your blood pressure regularly. Be sure you have a good cuff. An arm one is generally better than a wrist one. Bring the cuff to a doctor's appointment to validate that the measurements that your cuff are taking are accurate. Take your blood pressure twice daily when you are sitting down and relaxing. Record the numbers in a log and bring this log with you to your doctors' appointments. (5) Lose Weight if your BMI is above 25. A healthy BMI is between 19-25. To calculate Your BMI, you may use a Standard BMI Calculator on the NIH BMI website: <www.nhlbi.nih.gov/guidelines/obesity/BMI/bmicalc.htm>. Weigh oneself daily. If you are overweight, set a goal to lose weight. A pound a week loss if needed is a good target. (6) Reduce Blood Sugar. Limit foods and liquids with "added sugars." (Added sugars include sucrose, fructose, glucose, maltose, dextrose, high fructose corn syrup, corn syrup, concentrated fruit juice and honey). (7) Stop Smoking. If you smoke, quitting smoking is one of the best things that you can do for your health. Smoking increases your risk of heart attack, stroke, and peripheral vascular disease, which is a build-up of plaque in your arteries. Please discard all the cigarettes and lighters in your house. Have a plan for what you will do when you have the urge to smoke. Direct and second- hand smoke shortens your life as well as the lives of your family, friends and others around you. For your health and the health of those around you, please consider quitting! Proper Bending Body Mechanics: Maintain a wide stance with one foot slightly in front of the other. Keep your back straight. Bend utilizing the strength in your hips and knees. Do not bend at the waist. Maintain the lifted object at your waist-level close to your body. Avoid lifting weight that causes immediately pain or pain anywhere in the body afterwards. Smoking/Nicotine If there was ever one thing that you could do to increase your overall health, decrease your risk of cardiovascular problems by about 39% the second you make the choice, it is to STOP SMOKING. Your body's most instant gratification is the second you stop smoking. We have all heard the studies, read the articles but it is true, smoking is extremely bad for your overall health, and moreover it is detrimental to your bone health. Nicotine, IN ANY FORM, kills bone cells, prevents your body from healing fractures, and significantly prolongs healing after surgery. In spine surgery specifically, it increases your risk of not healing your bones to create a fusion and increases your risk of having a revision surgery due to this up to 60%. I know it is hard. I know it feels impossible. But there are ways. Take control of your life. We are here to help you through it. And when you are ready, ask us and we can direct you to help if you desire. Use the START Plan to Quit Smoking (please visit the Helpguide.org website listed below for more information): S = Set a quit date. Choose a date within the next 2 weeks, so you have enough time to prepare without losing your motivation to quit. If you mainly smoke at work, quit on the weekend, so you have a few days to adjust to the change. T = Tell family, friends, and co-workers that you plan to quit. Let your friends and family in on your plan to quit smoking and tell them you need their support and encouragement to stop. Look for a quit gaetano who wants to stop smoking as well. You can help each other get through the rough times. A = Anticipate and plan for the challenges you'll face while quitting. Most people who begin smoking again do so within the first 3 months. You can help yourself make it through by preparing ahead for common challenges, such as nicotine withdrawal and cigarette cravings. R = Remove cigarettes and other tobacco products from your home, car, and work. Throw away all your cigarettes (no emergency pack!), lighters, ashtrays, and matches. Wash your clothes and freshen up anything that smells like smoke. Shampoo your car, clean your drapes and carpet, and steam your furniture. T = Talk to your doctor about getting help to quit. Your doctor can prescribe medication to help with withdrawal and suggest other alternatives. If you can't see a doctor, you can get many products over the counter at your local pharmacy or grocery store, including the nicotine patch, nicotine lozenges, and nicotine gum. Resources for Quitting Smoking: <https://www.[place].gov/documents/[facility]/Quit_Tobacco_Resources_for_patients_313 480_7.pdf> Supplementation: Take recommended dosages of Vitamin D and Calcium to help fortify your bones and help them to heal. See your health maintenance packet for dosages and recommended levels. DVT/VTE prophylaxis: You will be given compression stockings from the hospital. Wear these daily for the first two weeks after surgery. You may take them off at night. You may be prescribed a medication to help thin your blood. Take this as directed. If you are not prescribed this medication, early and frequent ambulation has been shown to be the best prophylaxis to deep vein thrombosis and sequelae related to this event. Discharge Disposition: HOME WITH HOME HEALTH SERVICES
--- NOTE | 2022-01-17 13:48 | P.PN ---
Subjective Progress Note Date: 01/17/22 History of Presenting Illness: Patient is a very pleasant 71-year-old female with a past medical history of hypertension and neuropathy. She is currently admitted under orthospine surgery team and is status post L4 through S1 decompression with fusion. Surgical procedure was completed by Dr. Ayon on 01/14/22. Patient is postoperative day 1 today. We have been consulted for medical management throughout hospitalization. Patient was seen and fully evaluated at bedside this morning. Upon assessment patient sitting up in chair with TLSO brace in place. She continues to report control of postoperative pain and denies having any other complaints this morning including headache, lightheadedness, dizziness, chest pain, palpitations, shortness of breath, or experiencing any numbness/tingling/weakness in her extremities. Repeat hemoglobin stable at 7.4 from previous 7.7 yesterday. Patient is asymptomatic and denies having any noted bruising/bleeding, or dark-colored stools. Patient is being discharged this morning by orthospine surgery team. Recommend patient have repeat CBC in 3 days with results to be sent to PCP and orthopedic surgery team for follow-up. Physical exam: Vital signs reviewed and stable. General: Nontoxic, no distress and appears stated age. Derm: Skin warm and dry, normal coloration for ethnicity. Head: Atraumatic, normocephalic and symmetric. Eyes: EOMs intact, no lid lag, and anicteric sclera Mouth: no lip lesions, mucus membranes moist Cardiovascular: regular rate and rhythm with normal S1S2, no murmur, positive posterior tibial pulses bilaterally, and cap refill < 2 seconds. Lungs: Respirations even, regular, and unlabored on room air. Lungs CTA bilaterally, no rhonchi, no rales, no wheezing, and no accessory muscle usage. Abdominal: soft, nontender to palpation, no guarding, no appreciable organomegaly Ext: ROM intact. No gross muscle atrophy, no edema, no contractures Neuro: Speech clear, face symmetrical and CN II-XII grossly intact with no noted focal neuro deficits Psych: Alert and oriented to person, place, time, and situation. Appropriate and pleasant affect. Assessment and Plan of Care: Acute Postoperative blood loss anemia -Postoperative blood loss is an expected finding, baseline hemoglobin is 11. -No signs of active bleeding at this time, we will continue to monitor closely with repeat a.m. labs and transfuse as needed for hemoglobin less than 7. -Telemetry monitoring. -Recommend outpatient repeat CBC in 3 days with results to be sent to PCP and orthopedic surgery team for follow-up. Status post L4 through S1 transforaminal interbody fusion with decompression -Management per primary admitting orthospine surgery team including DVT prophylaxis, pain management, weightbearing, and PT/OT. -Patient currently DVT prophylaxis with SCDs. -Encourage use of incentive spirometry hourly while awake. Hypomagnesemia -Replaced, we will continue to monitor with repeat a.m. labs. Hypertension -Monitor vital signs and continue daily medication regimen with Vasotec Neuropathy -Continue daily medication regimen with Requip and Neurontin. Thank you for allowing us to participate in the care of this pleasant patient. Do not hesitate to contact us with questions. Someone can be reached from the [facility] hospitalist group all hours of the day at [phone] or via [employer]. Objective - Vital Signs Vital signs: Vital Signs Temp 98.5 F 01/17/22 04:30 Pulse 100 01/17/22 04:30 Resp 20 01/17/22 04:30 BP 144/81 01/17/22 09:15 Pulse Ox 91 L 01/17/22 04:30 Intake & Output 01/16/22 01/17/22 01/17/22 18:59 06:59 18:59 Intake Total 900 100 Balance 900 100 Intake: Intake, IV Titration 900 Amount Sodium Chloride 0.9% 1, 900 000 ml @ 75 mls/hr IV . [id number] [facility] Rx#:[id number] Oral 100 Other: Voiding Method Toilet Toilet # Voids 1 1 # Bowel Movements 1 1 - Labs CBC & Chem 7: 01/17/22 07:10 01/17/22 07:10 Labs: Abnormal Lab Results - Last 24 Hours (Table) 01/16/22 01/16/22 Range/Units 06:01 06:01 WBC 10.77 H (4.50-10.00) X 10*3/uL RBC 2.71 L (4.10-5.20) X 10*6/uL Hgb 7.7 L (12.0-15.0) g/dL Hct 26.5 L (37.2-46.3) % MCV 97.8 H (80.0-97.0) fL MCHC 29.1 L (32.0-37.0) g/dL RDW 17.0 H (11.5-14.5) % Anion Gap 7.60 L (10.00-18.00) mmol/L Est GFR (CKD-EPI)AfAm 52.3 L (60.0-200.0) Est GFR (CKD-EPI)NonAf 45.1 L (60.0-200.0) Glucose 115 H (70-110) mg/dL Calcium 8.1 L (8.7-10.3) mg/dL Alkaline Phosphatase 128 H (41-126) U/L Total Protein 5.1 L (6.2-8.2) g/dL Albumin 3.1 L (3.8-4.9) g/dL Albumin/Globulin Ratio 1.55 L (1.60-3.17) g/dL
== END 2022-01-17 14:15 | disposition home health service (06) ==
LOC: OR 10:00 → 5NMEDONC 19:18 → OR 01-15 07:24
PROVIDERS: ADMIT Orthopaedic Surgery; ATTEND Orthopaedic Surgery
DX: M43.17 Spondylolisthesis, lumbosacral region (principal); M48.062 Spinal stenosis, lumbar region with neurogenic claudication; M47.27 Other spondylosis with radiculopathy, lumbosacral region; M40.209 Unspecified kyphosis, site unspecified; D62 Acute posthemorrhagic anemia; M40.56 Lordosis, unspecified, lumbar region; E16.2 Hypoglycemia, unspecified; Z86.718 Personal history of other venous thrombosis and embolism; E83.42 Hypomagnesemia; G62.9 Polyneuropathy, unspecified; I10 Essential (primary) hypertension; M19.90 Unspecified osteoarthritis, unspecified site; K51.90 Ulcerative colitis, unspecified, without complications; Z96.653 Presence of artificial knee joint, bilateral; Z98.890 Other specified postprocedural states; Z90.49 Acquired absence of other specified parts of digestive tract; Z80.7 Family history of other malignant neoplasms of lymphoid, hematopoietic and related tissues; Z80.8 Family history of malignant neoplasm of other organs or systems; Z79.82 Long term (current) use of aspirin; Z79.899 Other long term (current) drug therapy; Z88.2 Allergy status to sulfonamides
CPT/HCPCS: 97530; 97162; 97535 ×2; 97166; 86900; 86901; 80053 ×2; 80048; 83735; 85025; 85027 ×2; 86850; 72100; 72131; 22633; 22634; 22853 ×2; 22842; G0378 ×3; C1713 ×2; C1762; J2250; J3370; J0690 ×5; J2405; J3010; J1170 ×5; J2370; J0330; J2704; J2001

== ENCOUNTER → 2022-01-21 | Outpatient (CLI) | payer MEDICARE ==
[2022-01-21 19:07] LABS: Basophils # (A) 0.04 X 10*3/uL (0.00-0.10); Basophils % (A) 0.5 %; Eosinophils % (A) 6.3 %; HCT 27.3 % (37.2-46.3); HGB 8.2 g/dL (12.0-15.0); Immature Grans, Automated 0.9 %; Lymphocytes # (A) 1.95 X 10*3/uL (0.90-5.00); Lymphocytes % (A) 24.5 %; MCH 28.7 pg (27.0-32.0); MCV 95.5 fL (80.0-97.0); Mean Platelet Volume 9.4 fL (9.5-12.2); Monocytes # (A) 0.72 X 10*3/uL (0.20-1.00); NRBC Per 100 WBC 0 /100 WBCS (0.0-0.0); Neutrophils # (A) 4.68 X 10*3/uL (1.80-7.70); Neutrophils % (A) 58.8 %; Platelet Count 343 X 10*3/uL (140-440); RBC 2.86 X 10*6/uL (4.10-5.20); WBC 7.96 X 10*3/uL (4.50-10.00)
== END | disposition home or self-care (01) ==
LOC: LABWHC1 13:42
PROVIDERS: ATTEND Nurse Practitioner
DX: D64.9 Anemia, unspecified (principal)
CPT/HCPCS: 36415; 85025

== ENCOUNTER → 2023-01-03 | Outpatient (CLI) | payer MEDICARE ==
--- NOTE | 2023-01-06 07:50 | MM ---
Reason for Exam: Screening (asymptomatic). Last screening mammogram was performed 12 month(s) ago. Patient History: Menarche at age 12. First Full-Term at age 17. Postmenopausal. Risk Values: Marielle 5 year model risk: 1.3%. NCI Lifetime model risk: 3.1%. Prior Study Comparison: 12/25/2020 Bilateral MG 3D screening mammo w/cad, [facility]. 01/02/2022 Bilateral MG 3D screening mammo w/cad, [facility]. Tissue Density: The breast tissue is heterogeneously dense. This may lower the sensitivity of mammography. Findings: Analyzed By CAD. There is no suspicious group of microcalcifications or new suspicious mass in either breast. Overall Assessment: Negative, BI-RAD 1 Management: Screening Mammogram of both breasts in 1 year. A clinical breast exam by your physician is recommended on an annual basis and results should be correlated with mammographic findings. Electronically signed and approved by: Cosmo Lynn M.D. Radiologis
== END | disposition home or self-care (01) ==
LOC: RADMAMWWP 13:06
PROVIDERS: ATTEND Family Medicine
DX: Z12.31 Encounter for screening mammogram for malignant neoplasm of breast (principal); Z78.0 Asymptomatic menopausal state
CPT/HCPCS: 77063; 77067

== ENCOUNTER → 2023-07-09 | Outpatient (CLI) | payer MEDICARE ==
--- NOTE | 2023-07-09 11:58 | CT ---
EXAMINATION TYPE: CT lumbar spine wo con DATE OF EXAM: 07/09/2023 COMPARISON: 01/14/2022 HISTORY: 72-year-old female M54.50 LOW BACK PAIN M47.26 OTHER SPONDYLOSIS, lower back pain TECHNIQUE: Contiguous axial scanning of the lumbar spine without IV contrast. Coronal and sagittal re constructions performed. CT DLP: 948.5 mGycm Automated exposure control for dose reduction was used. FINDINGS: There is moderate degenerative change in the bilateral SI joints. Patient is status post L4-S1 posterior and interbody fusion. Hardware remains uncomplicated in appear ance. The S1 screw tips continue to project beyond the anterior vertebral body cortex. Severe degenerative disc disease T12-L1 and L1-L2. Scattered facet arthropathy. Degenerative grade 1 retrolisthesis L1-L2 and L2-L3 is redemonstrated. Trace grade 1 retrolisthesis L 3-L4 is more pronounced now. Vertebral body heights are preserved. Disc bulge and ligamentum flavum thickening above the fusion at L3-L4 may contribute to a mild to mod erate canal stenosis. On the left, changes result in moderate neural foraminal stenosis at L5-S1, L1-L2, and L2-L3. Mild L3 -L4. On the right, there is moderate neuroforaminal stenosis at L2-L3 and mild at multiple additional leve ls. IMPRESSION: 1. STATUS POST L3-S1 POSTERIOR AND INTERBODY FUSION. MODERATE LEFT NEUROFORAMINAL STENOSIS AT L5-S1. 2. SEVERE DEGENERATIVE DISC DISEASE T12-L1 AND L1-L2 WITH SCATTERED FACET ARTHROPATHY. 3. DEGENERATIVE GRADE 1 RETROLISTHESIS REDEMONSTRATED L1-L2 AND L2-L3. THE TRACE GRADE 1 RETROLISTHES IS AT L3-L4 SLIGHTLY MORE PRONOUNCED NOW. 4. THERE MAY BE A MILD TO MODERATE FOCAL SPINAL CANAL STENOSIS AT L3-L4 ABOVE THE FUSION. 5. MODERATE BILATERAL SI JOINT OA.
== END | disposition home or self-care (01) ==
LOC: RADCTMAIN 09:57
PROVIDERS: ATTEND Orthopaedic Surgery
DX: M47.26 Other spondylosis with radiculopathy, lumbar region (principal); M46.1 Sacroiliitis, not elsewhere classified; M99.73 Connective tissue and disc stenosis of intervertebral foramina of lumbar region; M43.16 Spondylolisthesis, lumbar region; M51.15 Intervertebral disc disorders with radiculopathy, thoracolumbar region
CPT/HCPCS: 72131

== ENCOUNTER → 2023-11-26 | Outpatient (CLI) | payer MEDICARE | END | disposition home or self-care (01) | LOC: LABPAT 14:05 | PROVIDERS: ATTEND Orthopaedic Surgery | DX: Z01.812 Encounter for preprocedural laboratory examination (principal); M46.1 Sacroiliitis, not elsewhere classified; Z22.322 Carrier or suspected carrier of Methicillin resistant Staphylococcus aureus ==

== ENCOUNTER → 2023-12-08 | Outpatient (CLI) | payer MEDICARE ==
--- NOTE | 2023-12-08 12:54 | XR ---
EXAMINATION TYPE: XR Hip Complete LT DATE OF EXAM: 12/08/2023 COMPARISON: NONE HISTORY: Pain TECHNIQUE: 2 views submitted FINDINGS: Diffuse osteopenia with vacuum changes involving the SI joint sclerosis iliac bone uropathy or sacroi liitis. There is a moderate hypertrophic arthropathy of the left. Correlate femoral acetabulum. No obvious ac brent fracture or dislocation. IMPRESSION: 1. Moderate hypertrophic arthropathy of the left. Correlate for femoral acetabular impingement. 2. Severe SI joint arthropathy\sacroiliitis
== END | disposition home or self-care (01) ==
LOC: RADXRMAIN 12:34
PROVIDERS: ATTEND Orthopaedic Surgery
DX: M16.12 Unilateral primary osteoarthritis, left hip (principal); M46.1 Sacroiliitis, not elsewhere classified
CPT/HCPCS: 73502

== ENCOUNTER 2023-12-25 07:29 | Day surgery (SDC) | payer MEDICARE ==
[~2023-12-25 07:29] MED LIST changes: -ACETAMINOPHEN TAB 500 MG TAB PO PRN; -GABAPENTIN 300 MG CAP PO PRN; +LACTATED RINGERS 1,000 ML IV SCH; -ONDANSETRON 4 MG/2 ML VIAL IVP PRN; -TRANEXAMIC ACID IN NACL,ISO-OS 1,000 MG in SALINE 1 100ML.BAG IVPB PRN
[2023-12-25 08:17] VITALS: TEMP 97.4
[2023-12-25 08:17] LABS: Glucose,Whole Blood 117 mg/dL (70-110)
[2023-12-25] MEDS ORDERED: ROPIVACAINE 5MG/ML 20ML VIAL ONE (08:56)
[2023-12-25] MEDS ORDERED: IOPAMIDOL M300 15ML VIAL ONE (08:56)
[2023-12-25] MEDS ORDERED: methylPREDNISolone ACETATE 40 MG/ML 1 ML VIAL ONE (08:56)
--- NOTE | 2023-12-25 09:23 | P.PCN ---
Description of Procedure: Preprocedure diagnosis. Sacroiliac joint arthropathy. Postprocedure diagnosis. As above. Procedure done. Injection of the radio contrast material into left sacroiliac joint, sacroiliac joint arthrogram, interpretation of arthrogram. left sacroiliac joint injection with local anesthetics and steroid under fluoroscopic guidance. Anesthesia. Local anesthetic infiltration. Continuous EKG, pulse ox, blood pressure, and verbal communication was maintained with the patient in OR. Blood loss. Minimal. Indication. Sacroiliac joint arthropathy. Discussed the procedure, alternatives, complications which may include infection,bleeding, nerve damage, aggravation of pain which could be permanent. Patient understands and questions were answered. Procedure note. After getting consent patient in OR in prone position. Back prepped with chlorhexidine and draped in sterile manner. After injecting 10 mL of 1% lidocaine subcutaneously, a 22-gauge spinal needle was introduced under tunnel vision of the fluoroscope in the lower and posterior one third of left sacroiliac joint. After needle position confirmation by AP and crosstable lateral view, 1 mL of Isovue 200 contrast was injected. Contrast was noted to be into the sacroiliac joint. After repeat negative aspiration, 2.5 mL solution was injected which consists of 1.5 ml of 0.5% Ropivacaine mixed with 1 mL of 40 mg Depo-Medrol. After the procedure needles were taken out. Bandage applied. Disposition. Patient tolerated the procedure well. No complication. Patient was discharged home in stable condition.
--- NOTE | 2023-12-25 09:27 | FL ---
EXAMINATION TYPE: FL guided pain mgmt statistic Intraoperative/procedural fluoroscopic services were provided. Total fluoroscopy time is 17.0 seconds with a total of 2 submitted images to PACS. Please s ee the operative/procedural note for further details. DAP: [id number] mGym2
[2023-12-25 09:39] VITALS: BP 132/79; PULSE 85; RESP 18
== END 2023-12-25 09:38 | disposition home or self-care (01) ==
LOC: ORPAIN 07:29
PROVIDERS: ATTEND Pain Medicine Interventional Pain Medicine
DX: M46.1 Sacroiliitis, not elsewhere classified (principal); E16.2 Hypoglycemia, unspecified; Z88.2 Allergy status to sulfonamides; Z79.82 Long term (current) use of aspirin
CPT/HCPCS: J1030; Q9967; J2795; G0260; 27096

== ENCOUNTER → 2024-01-08 | Outpatient (CLI) | payer MEDICARE ==
--- NOTE | 2024-01-08 13:51 | P.PAINPG ---
PQRS Measure Charge Sheet Comment: A 73 yr old female with a history of severe and chronic LBP secondary to lumbar post laminectomy syndrome, L4-S1 laminectomy w hardware, L Sacroiliitis presents today for evaluation s/p L SI injection #1. Pt states she experienced 0 % pain relief x 2 wks s/p procedure. Pain level is provoked at 9 /10 in int ensity, constant, predominantly axial, localized in the lumbar spine, achy in character w occasional shooting towards the buttocks. Pain is provoked by standing/ walking for periods > 10 min. Pain is alleviated with physician guided exercises/ stretches three times weekly since Sep 2023, heat, medications (Coolidge, Tyl), topical BioFreeze gel, use of a cane for ambulatory assistance, manual massage, repositioning and rest. Oswestry axial pain score at 29. Interventional pain procedures completed include BL RFA L3-0L5 (Feb 2021), OSMANY L4-L5, L SI x1 Patient is currently on Patient denies any side effects of the medication(s), denies excessive drowsiness or sleepiness, denies suicidal ideation and reports that the current pain medication is helping to control the pain and improve activities of daily living. Patient denies any motor or sensory deficits. Patient denies any fever or night sweats, denies any change in the bowel movements or urination. Physical Examination: -Constitutional: Cooperative. Not in acute distress . - Neurologic: Cranial nerve II to XII intact. No focal neurological deficits. - Psychatric: Alert & oriented x 3. Matching mood & appropriate affect. Judgment and insight intact. - Musculoskeletal: Cervical spine: Muscle bulk/ tone/ strength in the bilateral upper extremities normal Vertebral body tenderness to palpation over Spurling test positive Distraction test positive Facet loading test positive TTP Thoracic spine Muscle bulk / tone/ strength in the bilateral paraspinal muscles normal Vertebral body tender to palpation over Facet loading test positive TTP Lumbar spine: Motor bulk/ tone/ strength lower extremities , thigh and legs : 5/5 Deep tendon reflexes : Normal Knee Jerk. Normal Ankle Jerk . Vertebral body tenderness to palpation over Mcdonald Test positive Lumbar Facet Loading Test positive Straight Leg Raise: positive at 30 degrees right side/ left side Gaenslen's Test positive Sacral spine : Severe tenderness over the Sacroiliac joint: right side / left side Range of motion: Flexion of the lumbar spine <60 degrees Range of motion: Extension of the lumbar spine <20 degrees Gaenslen's Test positive right side / left side Nazia test: positive right side / left side Thigh Thrust Test positive right side / left side Sacral Thrust Test positive right side / left side Imaging: MRI non contrast of the lumbar spine from 06/24/23 reviewed Assessment and plan: Chronic LBP secondary to post laminectomy syndrome, L4-S1 laminectomy w hardware, L Sacroiliitis Will follow up w Dr Ayon to explore L SI joint fusion option. All questions answered. I have spent less than 30 minutes on patient care today. Dr Nelson was available by phone for the evaluation of this patient. The time was used to review the medical records including relevant urine studies and Prescription history (MAPs), review of the available imaging, evaluation and examination of the patient, coordination of care with the medical staff and if applicable referring physicians, as well as creation of the medical record PQRS Narrative: Smoking Status Never smoker Hx Alcohol Use (MH) Yes: RARE Home Medications: Ambulatory Orders Aspirin 81 mg PO QAM 10/18/19 Enalapril [Vasotec] 10 mg PO QAM 10/18/19 rOPINIRole HCL [Requip] 1 mg PO HS PRN 10/18/20 Balsalazide Disodium 2,250 mg PO TID 05/09/21 HYDROcodone/APAP 7.5-325MG [[place] 7.5-325] 1 tab PO Q4-6H PRN #56 tab 01/17/22 5Hydroxytryptophan(Oxitriptan) [5-Htp] 100 - 200 mg PO QAM 12/19/23 Acetaminophen Tab [Tylenol] 650 mg PO Q4-6H PRN 12/19/23 Alpha Lipoic Acid 600 mg PO QAM 12/19/23 Calcium Carbonate [Calcium] 1,200 mg PO QAM 12/19/23 Cholecalciferol (Vitamin D3) [Vitamin D3 (50 Mcg = 2000 Iu)] 50 mcg PO QAM 12/19/23 Cyanocobalamin (Vitamin B-12) [Vitamin B-12] 1 tab PO QAM 12/19/23 Ferrous Sulfate [Iron (65 MG Elemental)] 325 mg PO QAM 12/19/23 S-Adenosylmethionine Sul Tosyl [Waldemar-E] 400 mg PO QAM 12/19/23 Turmeric Root Extract [Turmeric] 500 mg PO BID 12/19/23 Valerian Root [Valerian] 4,800 mg PO HS 12/19/23 Controlled Substance Measures - Controlled Substance Measures Is patient prescribed a controlled substance at discharge?: No
[2024-01-08 14:23] VITALS: BP 139/92; PULSE 100; RESP 16
== END ==
LOC: PNWHC3 13:25
PROVIDERS: ATTEND Specialist
DX: M46.1 Sacroiliitis, not elsewhere classified (principal); M96.1 Postlaminectomy syndrome, not elsewhere classified; G89.29 Other chronic pain; Z88.2 Allergy status to sulfonamides
CPT/HCPCS: 99211

== ENCOUNTER → 2024-01-16 | Outpatient (CLI) | payer MEDICARE ==
[2024-01-16 15:34] LABS: HCT 38.2 % (37.2-46.3); HGB 12.1 g/dL (12.0-15.0); MCH 31.8 pg (27.0-32.0); MCHC 31.7 g/dL (32.0-37.0); MCV 100.5 FL (80.0-97.0); Mean Platelet Volume 9.3 FL (9.5-12.2); NRBC Per 100 WBC 0 X 10*3/uL (0.00-0.01); Platelet Count 264 X 10*3/uL (140-440); WBC 6.65 X 10*3/uL (4.50-10.00)
[2024-01-16 16:21] LABS: ALT 18 U/L (8-44); AST 18 U/L (13-35); Albumin 4.2 g/dL (3.8-4.9); Albumin/Globulin Ratio 1.83 Ratio (1.60-3.17); Alkaline Phosphatase 90 U/L (41-126); BUN/Creat Ratio 24.85 Ratio (12.00-20.00); Blood Urea Nitrogen 32.3 mg/dL (9.0-27.0); Calcium 9.7 mg/dL (8.7-10.3); Carbon Dioxide 22.4 mmol/L (21.6-31.8); Chloride 105 mmol/L (96-109); Globulin 2.3 g/dL (1.6-3.3); Glucose 125 mg/dL (70-110); Potassium 4.4 mmol/L (3.5-5.5); Sodium 141 mmol/L (135-145); Total Bilirubin 0.7 mg/dL (0.3-1.2); Total Protein 6.5 g/dL (6.2-8.2)
[2024-01-16 16:35] LABS: INR 0.95 sec (0.93-1.11); Prothrombin Time 10.3 sec (9.9-11.9)
== END | disposition home or self-care (01) ==
LOC: LABPAT 10:09
PROVIDERS: ATTEND Orthopaedic Surgery
DX: Z01.818 Encounter for other preprocedural examination (principal); M46.1 Sacroiliitis, not elsewhere classified; R94.31 Abnormal electrocardiogram [ECG] [EKG]; Z22.322 Carrier or suspected carrier of Methicillin resistant Staphylococcus aureus
CPT/HCPCS: 36415; 80053; 82306; 85027; 85610; 86850; 86900; 86901; 87070; 93005

== ENCOUNTER → 2024-02-10 | Outpatient (CLI) | payer MEDICARE ==
--- NOTE | 2024-02-10 12:51 | XR ---
EXAMINATION TYPE: XR sacroiliac joint comp BILAT DATE OF EXAM: 02/10/2024 12:03 PM CLINICAL INDICATION:Female, 73 years old with history of M46.1 SACROILIITIS, NOT ELSEWHERE CLASSIFIED ; [facility] COMPARISON: None TECHNIQUE: The sacroiliac joints were examined in a frontal and lateral and oblique projections. FINDINGS: There is no evidence of fracture or dislocation. Mild osteophyte formation of the inferior sacroiliac joints bilaterally. There is no soft tissue abnormality. No abnormal calcifications are p resent. Multilevel degenerative changes of the lower spine. Fixation changes to the lower spine appea r intact. IMPRESSION: No acute osseous pathology. Mild bilateral sacroiliac degeneration with osteophyte formation most pronounced inferiorly
== END | disposition home or self-care (01) ==
LOC: RADXRMAIN 11:24
PROVIDERS: ATTEND Orthopaedic Surgery
DX: M53.3 Sacrococcygeal disorders, not elsewhere classified (principal); M46.1 Sacroiliitis, not elsewhere classified
CPT/HCPCS: 72202

== ENCOUNTER → 2024-03-03 | Outpatient (CLI) | payer MEDICARE ==
[2024-03-03 12:09] LABS: INR 0.9 (<1.2); Partial Thromboplastin Time 22.6 sec (22.0-30.0); Prothrombin Time 10.2 sec (10.0-12.5)
[2024-03-03 18:18] LABS: HCT 38.3 % (37.2-46.3); HGB 12.3 g/dL (12.0-15.0); MCH 32.9 pg (27.0-32.0); MCHC 32.1 g/dL (32.0-37.0); MCV 102.4 FL (80.0-97.0); NRBC Per 100 WBC 0 X 10*3/uL (0.00-0.01); Platelet Count 290 X 10*3/uL (140-440); RBC 3.74 X 10*6/uL (4.10-5.20); RDW 13.1 % (11.5-14.5); WBC 5.96 X 10*3/uL (4.50-10.00)
[2024-03-03 18:52] LABS: ALT 19 U/L (8-44); AST 20 U/L (13-35); Albumin 4.3 g/dL (3.8-4.9); Albumin/Globulin Ratio 1.87 Ratio (1.60-3.17); Alkaline Phosphatase 105 U/L (41-126); Blood Urea Nitrogen 29.4 mg/dL (9.0-27.0); Calcium 9.5 mg/dL (8.7-10.3); Chloride 105 mmol/L (96-109); Globulin 2.3 g/dL (1.6-3.3); Glucose 122 mg/dL (70-110); Potassium 4.8 mmol/L (3.5-5.5); Sodium 141 mmol/L (135-145); Total Bilirubin 0.7 mg/dL (0.3-1.2); Total Protein 6.6 g/dL (6.2-8.2)
== END | disposition home or self-care (01) ==
LOC: LABWHC1 11:02
PROVIDERS: ATTEND Orthopaedic Surgery
DX: M46.1 Sacroiliitis, not elsewhere classified (principal)
CPT/HCPCS: 36415; 80053; 82306; 85027; 85610; 85730; 86850; 86900; 86901; 87070

== ENCOUNTER 2024-03-05 11:12 | Day surgery (SDC) | payer MEDICARE ==
--- NOTE | 2024-03-05 09:54 | P.HPOR ---
History of Present Illness H&P Date: 03/05/24 Chief Complaint: SIJ pain .D:Date: 01/16/24 : 09:44am .T:Title: [facility] HISTORY AND PHYSICAL Age: 73 year Height: 5'2" Weight: 200 lbs BP:110/64 BMI: 36.58 kg/m2 Occupation: Retired VAS: 8 Hand:Right CC: Preoperative evaluation for left MIS SI joint fusion HPI: The patient presents for a pre-op evaluation for her previously scheduled left MIS sacroiliac joint fusion. She has trialed SI belt, several left SI joint injections in my office and at pain management, RFA, home heat/ice therapies, physician directed at home stretches/exercisies, physical therapy, medication management, and activity modification, all with no significant or sustained relief. She notes continued intense burning pain throughout the low back, mainly on the left side, that radiates down into the posterior and lateral aspects of the left lower extremity. She states her left leg pain is associated with n umbness and tingling. She states her symptoms worsen after prolonged sitting, when going up the stairs, and when going from a seated to standing position. The patient states er symptoms have continued to worsen over the last 1 to 2 months. She reports experiencing severe sleep disturbances related to her ongoing pain and associated symptoms. She is currently taking Tylenol for relief of her current symptoms. She denies any f/c/sob or loss of bowel.bladder control. She ambulates independently today. HISTORY: Imaging: CT/MRI/XR of the [place] spine to include pelvis. XR of the left hip (negative). Trauma: No Work Related: No Activity Modification: Yes PT: Yes How many sessions? 2 rounds of 12. Approximate last date of PT 11/25/23. Did it help? No Home Exercise: Yes, the patient has trialed the physician directed home exercise program without relief of their symptoms. Medications:Yes; List: Tylenol, Motrin, Medrol, Flexeril, Toradol, Lidocaine patches, Voltaren gel, Supplements Alternative Interventions: Chiropractic: YES, no help Massage therapy: YES, recently, helps with low back pain but not SIJ pain R.I.C.E:Yes, Minimal help Brace:YES SI belt, pt could not tolerte, made her sx worse Injections:Yes (Bilateral SI joint injections) How many? 2 (set of two) Did they help? Yes, mild temporary relief #1 50% #2 80% transiet relief. RFA:No The patients' past social, medical, family, surgical history, as well as review of systems, have been reviewed. Please refer to the Neurosurgery History and Physical form that has been scanned in to our electronic medical record system. 16 points review of systems completed and as stated in HPI, all other systems reviewed are negative. IMPRESSION: It was my pleasure to have seen and examined Violeta. I reviewed the patient's clinical syndrome, physical findings, and imaging studies during the appointment today. It is my impression that the patient has a diagnosis of. 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 RADIOGRAPHS: X-rays of LEFT HIP taken at [facility] on 12/08/2023, reviewed and demonstrate: IMages reviewed with pt. No fracture. Mild OA changes. Minimal joint space narrowing. No cystic formation or other osseous abnormalities. No lesions. Alignment stable. Spine Surgery Risk Review Ms. Tiwari is presenting for evaluation of low back and left lower extremity pain, left lower extremity numbness and tingling. It was my pleasure to have seen and examined Ms. Tiwari. In our visit today we have had a chance to go over subjective complaints, physical examination findings and treatments including the natural course history without intervention and various interventional options. The patients imaging demonstrates: X-rays of LEFT HIP taken at [facility] on 12/08/2023, reviewed and demonstrate: IMages reviewed with pt. No fracture. Mild OA changes. Minimal joint space narrowing. No cystic formation or other osseous abnormalities. No lesions. Alignment stable. MRI scan from06/24/23 completed at [facility]: - Re-reviewed with the patient today. Post surgical changes noted L4-S1 with good alignment. No evidence of facture failure or loosening. No evidence of continued stenosis or comporession. No lesions. No fractures. Mild degenerative changes noted at L2-3 and L3-4 with some disc dehydration and facet arthropathy. CT scan of lumbar spine done at [facility] on 07/09/23 reviewed with patient: This demonstrates bilateral SIJ OA changes with sclerosis and subchondral cyst formation. There is moderate degenerative changes at L1-2, L2-3 noted. Post surgical changes noted L3-S1 with no evidence of failure, fracture or loosening. No other lesions noted. NO fracutes. Previous lumbar xrays reviewed again. Post surgical chanbges L3-S1. No evidcen of complicating process. AP pelvis shows b/l SIJ OA with OA changes sclerosis and cystic formation. No fractures or lesions noted. On physical exam, Ms. Tiwari demonstrates: An intense burning pain throughout the low back, mainly on the left side, that radiates down into the posterior and lateral aspects of the left lower extremity. She states her left leg pain is associated with numbness and tingling. She states her symptoms worsen after prolonged sitting, when going up the stairs, and when going from a seated to standing position. The patient states er symptoms have continued to worsen over the last 1 to 2 months. I have explained to the patient that as their condition progresses it will cause further neurological deficits and eventual paralysis. Based on the patients imaging, physical exam, and the rapid progression and disabling nature of their symptoms, at this time I recommend surgery in the form of a: LEFT minimally invasive sacroiliiac joint fuison. I discussed the risk and benefits of this procedure at length with Ms. Tiwari. The patient agreed to considered pursuing the procedure abovementioned. Prior to surgery, she should follow up with her PCP (Cardio, ID, IM etc) for clearance. Questions were invited and answered, and the patient wishes to proceed as outlined below. Currently, I am recommendin. LEFT minimally invasive sacroiliiac joint fuison 3.Review of surgical risks and benefits as well as an educational packet on the proposed surgical procedure. Risks: All surgical procedures come with inherent risks, including those related to positioning, anesthesia, intraoperative findings, and postoperative complications. It is important to understand that surgery does not come with any guarantee of a successful outcome as complications and adverse events are always possible. The patient was given a handout in office today discussing the surgical procedure and risks associated with the intervention, both of which were discussed with the patient. These risks include but are not limited to the following: * Experiencing same, different or even worse symptoms in back, neck, arms, or legs compared to before surgery. Requiring further surgery or other forms of treatment presently or at some time in the future at same or other levels of the intended spine surgery. On an extreme but fortunately relatively rare basis severe complication such as blindness, stroke, heart attack, temporary and/or permanent nerve injury, paralysis, coma, or may occur, sometimes without known explanation. Surgical complications may include but are not limited to risk of infection, fluid accumulation in the surgical dissection site, including a seroma or hematoma, that requires additional surgery, wound drainage, bleeding, new numbness or weakness, vision changes/loss, spinal fluid leakage, non-healing and/or infected incision, headaches, difficulty or inability to swallow, hoarseness, hemopneumothorax, pneumothorax, impotence, retrograde ejaculation, vaginal dryness; injury to nerves, spinal cord, blood vessels, lymphatics or other vital organs (i.e., bowel injury, injury to the great vessels); heterotopic bone formation; complications related to the hardware such as screws, rods, cages including misplaced hardware, device failure, instrumentation at the wrong spine level, hardware fracture/breakage, or hardware loosening; vertebral failure of the spinal column above or below the newly placed hardware; retained surgical instrumentations or devices and the need for further surgery. * Medical risks of the planned spine surgery include but are not limited to generalized Infections to the whole body or local areas outside of the surgical site (sepsis), heart attack, bleeding, anaphylaxis, meningitis, seizure, epilepsy, hearing loss, burn kilgore, laceration of the head or other areas of the body, bruising, hypersensitivity of the skin, bladder over distension; allergic reaction; shoulder injury related to positioning; fat, blood and air clots to other areas of the body like heart, lungs, brain; failure of internal organs such as lungs, kidneys, liver and excessive bleeding. If blood transfusions are necessary, note that transfusions may cause intolerance reactions such as anaphylaxis or other complex reactions. Despite best efforts, the results of spine surgery might not heal in terms of bone, soft tissues such as skin, fascia, ligaments, and joints. Additionally, in order to achieve best possible results, spine surgery may be carried out beyond the initially planned levels and involve decompression, fusion including insertion of hardware at levels other than the original intended area of surgical interest change some portions of the procedure in order to ensure the best possible outcomes. With spine surgery and spinal fusion, there are different off label uses of instrumentation (devices, implants and hardware) as well as biological substances (bone morphogenic proteins, demineralized bone matrix) as well as using extra bone from allograft sources (i.e. cadaver bone) or autograft (iliac crest bone, ribs, or the spine itself). The patient has been given information about these practices and their inherent risks and benefits. [facility] is an educational center that serves as a training facility for neurosurgical and orthopedic COMPETITIVE [employer]THLETE and Nursing students. Physician assistants are medically trained surgical providers who function in the outpatient, inpatient, and operating room setting under the direct supervision of the attending surgeon. [facility] has multiple operating rooms with single and overlapping rooms running daily. They currently function under the required guidelines as produced by the [facility] Finance Committee with regards to the overlapping rooms and will continue to comply with changes to this policy as they occur. The requirements include and are complied with as follows: (1) the critical portions of the overlapping rooms will not occur at the same time, (2) the attending physician will be physically present during the critical portions of the procedure and immediately available during the entire case, and (3) a back-up attending is designated should the primary attending not be immediately available. The patient has had a chance to review all the listed information, has been given print outs detailing this information, and has had all his/her questions answered to their satisfaction. It was my pleasure to have seen and examined Ms. Tiwari. In our visit today we have had a chance to go over my understanding of our patient's current condition, the natural course history without intervention and various interventional options. Questions were invited and answered, and the patient wishes to proceed as outlined above. I have seen and examined the patient for 25 minutes and we have spent more than 50% of the time in repeat and detailed counseling about the patient's condition, its natural course history with out and as much as can be predicted with surgery and re-review of various surgical treatment options. In conclusion, Ms. Tiwari requested we proceed with the above suggested surgery and are willing to accept risks and limitations of the suggested surgery as nature of the disease process and our best attempts at treatment for the condition. Thank you again for allowing us to be part of your patient's care. Please don't hesitate to contact me if you have any further questions. FOLLOW UP: Post Procedure PATIENT EDUCATION: Medications Reviewed: YES In our visit today Ms. Tiwari and I have had a chance to go over my understanding of the patient's current condition, the natural course history without intervention and various interventional options. Questions were invited and answered, and the patient wishes to proceed as outlined above. I will be sure to keep you updated after Ms. Tiwari returns here for further follow-up. Thank you again for your referral. Please do not hesitate to contact me if you have any further questions. Signed and authenticated by: Mario Haro [facility] [address] [facility], [address] [address] This message is confidential, intended only for the named recipient(s) and may contain information that is privileged or exempt from disclosure under applicable law. If you are not the intended recipient(s), you are notified that the dissemination, distribution or copying of this information is strictly prohibited. If you received this message in error, please notify the sender th en delete this message. # SIGNED BY Mario Ayon (GOO)01/20/2024 06:30PM Past Medical History Past Medical History: Deep Vein Thrombosis (DVT), Hypertension, Osteoarthritis (OA) Additional Past Medical History / Comment(s): DVT IN LEFT LEG- POST OP 2007 , ulcerative colitis, hypoglycemia, low back pain History of Any Multi-Drug Resistant Organisms: None Reported Past Surgical History: Appendectomy, Joint Replacement Additional Past Surgical History / Comment(s): RIGHT AND LEFT KNEE REPLACEMENT, PAIN CLINIC PROCEDURES , colonoscopy, cataract removed Past Anesthesia/Blood Transfusion Reactions: No Reported Reaction Smoking Status: Never smoker - Past Family History Mother Family Medical History: Cancer Father Family Medical History: Cancer Additional Family Medical History / Comment(s): LYMPH NODE CANCER Sister(s) Family Medical History: Cancer Additional Family Medical History / Comment(s): SKIN CANCER Medications and Allergies Home Medications Medication Instructions Recorded Confirmed Type Aspirin 81 mg PO QAM 10/18/19 03/03/24 History Enalapril [Vasotec] 10 mg PO QAM 10/18/19 03/03/24 History rOPINIRole HCL [Requip] 1 mg PO HS PRN 10/18/20 03/03/24 History Balsalazide Disodium 2,250 mg PO TID 05/09/21 03/03/24 History 5Hydroxytryptophan(Oxitriptan) 100 - 200 mg PO QAM 12/19/23 03/03/24 History [5-Htp] Acetaminophen Tab [Tylenol] 650 mg PO Q4-6H PRN 12/19/23 03/03/24 History Alpha Lipoic Acid 600 mg PO QAM 12/19/23 03/03/24 History Calcium Carbonate [Calcium] 1,200 mg PO QAM 12/19/23 03/03/24 History Cholecalciferol (Vitamin D3) 50 mcg PO QAM 12/19/23 03/03/24 History [Vitamin D3 (50 Mcg = 2000 Iu)] Cyanocobalamin (Vitamin B-12) 1 tab PO QAM 12/19/23 03/03/24 History [Vitamin B-12] Ferrous Sulfate [Iron (65 MG 325 mg PO QAM 12/19/23 03/03/24 History Elemental)] S-Adenosylmethionine Sul Tosyl 400 mg PO QAM 12/19/23 03/03/24 History [Waldemar-E] Turmeric Root Extract [Turmeric] 500 mg PO BID 12/19/23 03/03/24 History Valerian Root [Valerian] 4,800 mg PO HS 12/19/23 03/03/24 History HYDROcodone/APAP 7.5-325MG [[place] 1 tab PO BID PRN 01/22/24 03/03/24 History 7.5-325] Allergies Allergy/AdvReac Type Severity Reaction Status Date / Time Sulfa (Sulfonamide Allergy skin Verified 03/03/24 17:14 Antibiotics) peeling, burning on "inside" sulfasalazine Allergy skin Verified 03/03/24 17:14 [From Azulfidine] peeling, burning on "inside Physical Examination Osteopathic Statement: *. No significant issues noted on an osteopathic structural exam other than those noted in the History and Physical/Consult.
[~2024-03-05 11:12] MED LIST changes: -LACTATED RINGERS 1,000 ML IV SCH; +TRANEXAMIC 1,000 MG/100ML-NACL 1,000 MG in SALINE 1 100ML.BAG IVPB PRN
[2024-03-05] MEDS: LACTATED RINGERS 1,000 ML IV ONE (11:35)
[2024-03-05] MEDS: ONDANSETRON 4 MG/2 ML VIAL IVP PRN (12:14)
[2024-03-05] MEDS: GABAPENTIN 300 MG CAP PO PRN (12:15)
[2024-03-05] MEDS: ACETAMINOPHEN TAB 500 MG TAB PO PRN (12:15)
[2024-03-05] MEDS: MIDAZOLAM 2 MG/2 ML VIAL IVP ONE (12:15)
[2024-03-05] MEDS ORDERED: LIDOCAINE 1% INJ 10MG/ML (20 ML MDV) ONE (12:45)
[2024-03-05] MEDS ORDERED: TRANEXAMIC 1,000 MG/100ML-NACL PREMIX BAG ONE (12:45)
[2024-03-05] MEDS ORDERED: fentaNYL (PF) 50 MCG/ML 2 ML AMP ONE (12:45)
[2024-03-05] MEDS ORDERED: MIDAZOLAM 2 MG/2 ML VIAL ONE (12:45)
[2024-03-05] MEDS ORDERED: PHENYLEPHRINE 10 MG/ML VIAL ONE (12:45)
[2024-03-05] MEDS ORDERED: ROCURONIUM 10 MG/ML (5 ML VIAL) IV ONE (12:45)
[2024-03-05] MEDS ORDERED: PROPOFOL 10 MG/ML 20 ML VIAL IV ONE (12:45)
[2024-03-05] MEDS ORDERED: GLYCOPYRROLATE 0.2 MG/ML 2 ML VIAL ONE (12:45)
[2024-03-05] MEDS ORDERED: NEOSTIGMINE 1 MG/ML 10 ML VIAL ONE (12:45)
[2024-03-05] MEDS ORDERED: SUCCINYLCHOLINE CHLORIDE 200 MG/10 ML VIAL IV ONE (12:45)
[2024-03-05] MEDS: THROMBIN (BOVINE) 5,000 UNIT VIAL TOPICAL ONE (13:28)
--- NOTE | 2024-03-05 14:31 | FL ---
EXAMINATION TYPE: FL guidance operating room DATE OF EXAM: 03/05/2024 HISTORY: Fluoroscopy time Total dose area product (DAP) in uGy*m?, mGy*cm? (or similar): 4249.68 IMPRESSION: 1. Fluoroscopy time.
--- NOTE | 2024-03-05 14:34 | P.OP ---
Date of Procedure: 03/05/24 Preoperative Diagnosis: Current Active Problems Spondylosis of lumbosacral region without myelopathy or radiculopathy (Acute) Low back pain (Acute) Bilateral sacroiliitis (Acute) HTN (hypertension) (Chronic) DVT (deep venous thrombosis) (Chronic) Postoperative Diagnosis: Current Active Problems Spondylosis of lumbosacral region without myelopathy or radiculopathy (Acute) Low back pain (Acute) Bilateral sacroiliitis (Acute) HTN (hypertension) (Chronic) DVT (deep venous thrombosis) (Chronic) Procedure(s) Performed: 1. LEFT MINIMALLY INVASIVE SACROILLIAC JOINT FUSION (06038) 2. USE OF [employer] NAVIGATION FOR SCREW PLANNING AND PLACEMENT (57862) USE OF IONM ALL SCREWS TESTING ABOVE 20 mA Implants: -SI BONE TORQUE SCREWS X3 50 MM 60 MM 50 MM -AUTOGRAFT Anesthesia: GETA Surgeon: Mario Ayon Program/Music Director #1: Lewis Barth (WAS PRESENT AND ASSISTED WITH ALL ASPECST OF THE CASE FROM POSITION TO DRESSING PLACEENT) Estimated Blood Loss (ml): 20 IV fluids (ml): 1,000 Urine output (ml): 0 Pathology: none sent Condition: stable Disposition: PACU Indications for Procedure: Ms. Tiwari is presenting for evaluation of low back and left lower extremity pain, left lower extremity numbness and tingling. It was my pleasure to have seen and examined Ms. Tiwari. In our visit today we have had a chance to go over subjective complaints, physical examination findings and treatments including the natural course history without intervention and various interventional options. The patients imaging demonstrates: X-rays of LEFT HIP taken at [facility] on 12/08/2023, reviewed and demonstrate: IMages reviewed with pt. No fracture. Mild OA changes. Minimal joint space narrowing. No cystic formation or other osseous abnormalities. No lesions. Alignment stable. MRI scan from06/24/23 completed at [facility]: - Re-reviewed with the patient today. Post surgical changes noted L4-S1 with good alignment. No evidence of facture failure or loosening. No evidence of continued stenosis or comporession. No lesions. No fractures. Mild degenerative changes noted at L2-3 and L3-4 with some disc dehydration and facet arthropathy. CT scan of lumbar spine done at [facility] on 07/09/23 reviewed with patient: This demonstrates bilateral SIJ OA changes with sclerosis and subchondral cyst formation. There is moderate degenerative changes at L1-2, L2-3 noted. Post surgical changes noted L3-S1 with no evidence of failure, fracture or loosening. No other lesions noted. NO fracutes. Previous lumbar xrays reviewed again. Post surgical chanbges L3-S1. No evidcen of complicating process. AP pelvis shows b/l SIJ OA with OA changes sclerosis and cystic formation. No fractures or lesions noted. On physical exam, Ms. Tiwari demonstrates: An intense burning pain throughout the low back, mainly on the left side, that radiates down into the posterior and lateral aspects of the left lower extremity. She states her left leg pain is associated with numbness and tingling. She states her symptoms worsen after prolonged sitting, when going up the stairs, and when going from a seated to standing position. The patient states er symptoms have continued to worsen over the last 1 to 2 months. I have explained to the patient that as their condition progresses it will cause further neurological deficits and eventual paralysis. Based on the patients imaging, physical exam, and the rapid progression and disabling nature of their symptoms, at this time I recommend surgery in the form of a: LEFT minimally invasive sacroiliiac joint fuison. I discussed the risk and benefits of this procedure at length with Ms. Twiari. The patient agreed to considered pursuing the procedure abovementioned. Prior to surgery, she should follow up with her PCP (Cardio, ID, IM etc) for clearance. Questions were invited and answered, and the patient wishes to proceed as outlined below. Currently, I am recommendin. LEFT minimally invasive sacroiliiac joint fuison Description of Procedure: Left SI fusion MIS (JOHNSON) The patient was seen and examined in the preoperative area. All preoperative protocols were followed. Informed consent was obtained, risks and benefits of the procedure were discussed at length. Risks including bleeding infection damage to the surrounding tissue and risk of reoperation were discussed with the patient. Risk of anesthesia up to and including was discussed with the patient. These are outlined in the risk review. They were willing to accept these risks and all of the risks of surgery. The patient was given a weight- based dose of antibiotics in the form of 2 g Ancef. The patient was seen and evaluated by the anesthesia team who deemed them fit for surgery. The site was marked, the patient was willing to proceed with the procedure. The patient was transferred to the operative suite by the Department of anesthesia. They were then drifted off to sleep by the department anesthesia and GETA was performed. The patient tolerated this well. Once confirmation of lines and ventilation the patient was transferred to a [prone Josh table very carefully]. All bony prominences including wrists, elbows, axilla, chest, hips, and thighs, and feet were padded very well. Special attention was paid to the genitalia and these were padded accordingly. SCDs were placed on bilateral lower extremities and were connected. Arms were well padded and placed [on arm boards up and out in the 90/90 position]. Once in position, again we confirmed good ventilation capabilities and that lines were running appropriately. The patient's lumbopelvic spine was then exposed. 1010s were placed outlining the incision site. Standard alcohol was used to clean the incision site and allowed to dry. C-arm was used to biomark the patient and confirm level for incision which was marked with a skin marker. Operative briefing was performed with all teams and everyone in agreement to proceed. The patient was then prepped and draped in a normal sterile fashion. Timeout was then performed and all parties were in agreement with the procedure to be performed. Skin nicks were made over the PSIS on the right side and pins placed for Vibease Tracker system. Tracker attached and 3D Zhiem spin registered. Once confirmed to be accurate, skin incision was then made over the previously marked area over the left upper buttock region of the patient following the alar lines and mid sacral line. Blunt dissection was then taken down to the ilium. Navigated Jamshidi was then used to place a pin optimally within the SI region superiorly and into S1 body. This was then measured and drilled and a screw placed using navigated instruments. Then using the parallel guide and a navigated jamshidi, a second screw was placed in the anterior inferior position in a similar fashion that was then repeated for the inferior posterior screw. All screws had excellent purchase and were confirmed to be in good position on AP lateral inlet and outlet views. Neuro monitoring was then used to test the superior screw for L5 and S1 and these tested above 20 mA. No neuro monitoring changes during surgery, no EMG. Final fluoroscopic images then confirmed good placement of hardware. We then thoroughly irrigated the wound. Deep fascia was closed with 0 Vicryl superficial closed with 2-0 Vicryl and skin closed with dahiana. The wound was then cleaned and dressed with skin glue which was allowed to dry and then a Band-Aid. The patient was transferred back to their hospital bed atraumatically. Patient was then awakened and extubated by the department of anesthesia having tolerated the procedure very well with no complications. They were transferred to the postoperative care unit in stable condition.
[2024-03-05 14:50] VITALS: TEMP 97.8
[2024-03-05 15:48] VITALS: RESP 16
[2024-03-05 16:04] VITALS: BP 129/83; PULSE 67
== END 2024-03-05 16:14 | disposition home or self-care (01) ==
LOC: OR 11:12
PROVIDERS: ATTEND Orthopaedic Surgery
DX: M47.817 Spondylosis without myelopathy or radiculopathy, lumbosacral region (principal); M46.1 Sacroiliitis, not elsewhere classified; I12.9 Hypertensive chronic kidney disease with stage 1 through stage 4 chronic kidney disease, or unspecified chronic kidney disease; N18.30 Chronic kidney disease, stage 3 unspecified; Z86.718 Personal history of other venous thrombosis and embolism; Z86.711 Personal history of pulmonary embolism; Z88.2 Allergy status to sulfonamides; Z79.82 Long term (current) use of aspirin; Z79.899 Other long term (current) drug therapy
CPT/HCPCS: 72100; 27279; 61783; 95938; 95870; C1713; J2250; J0330; J2710; J0690; J2405; J2001; J3010; J2704; J2371

== ENCOUNTER → 2024-08-05 | Outpatient (CLI) | payer MEDICARE ==
[2024-08-05 09:47] VITALS: BP 112/71; PULSE 110; RESP 18; TEMP 97.5
--- NOTE | 2024-08-05 14:33 | P.PAINPG ---
PQRS Measure Charge Sheet Comment: A 73 yr old female with a history of severe and chronic LBP secondary to lumbar post laminectomy syndrome, L4-S1 laminectomy w hardware, L SI Fusion (Feb 2024) presents today for evaluation. Pain level is provoked at 9 /10 in intensity, constant, predominantly axial, localized in the lumbar spine, sharp in character w occasional shooting towards the RLE. Pain is provoked by standing/ walking for periods > 10 min. Pain is alleviated with physician guided exercises/ stretches three times weekly since Sep 2023, heat, medications, topical, use of a cane for ambulatory assistance, manual massage, repositioning and rest. Interventional pain procedures completed include BL RFA L3-L5 (Feb 2021), OSMANY L4-L5, L SI Fusion (Feb 2024), R SI x1 (07/12/24) Patient is currently on Tramadol, Neurontin, Tyl, BioFreeze Patient denies any side effects of the medication(s), denies excessive drowsiness or sleepiness, denies suicidal ideation and reports that the current pain medication is helping to control the pain and improve activities of daily living. Patient denies any motor or sensory deficits. Patient denies any fever or night sweats, denies any change in the bowel movements or urination. Physical Examination: -Constitutional: Cooperative. Not in acute distress . - Neurologic: Cranial nerve II to XII intact. No focal neurological deficits. - Psychatric: Alert & oriented x 3. Matching mood & appropriate affect. Judgment and insight intact. - Musculoskeletal: Cervical spine: Muscle bulk/ tone/ strength in the bilateral upper extremities normal Vertebral body tenderness to palpation over Spurling test positive Distraction test positive Facet loading test positive TTP Thoracic spine Muscle bulk / tone/ strength in the bilateral paraspinal muscles normal Vertebral body tender to palpation over Facet loading test positive TTP Lumbar spine: Motor bulk/ tone/ strength lower extremities , thigh and legs : 5/5 Deep tendon reflexes : Normal Knee Jerk. Normal Ankle Jerk . Vertebral body tenderness to palpation over Mcdonald Test positive Lumbar Facet Loading Test positive Straight Leg Raise: positive at 30 degrees right side/ left side Gaenslen's Test positive Sacral spine : Severe tenderness over the Sacroiliac joint: right side / left side Range of motion: Flexion of the lumbar spine <60 degrees Range of motion: Extension of the lumbar spine <20 degrees Gaenslen's Test positive right side / left side Nazia test: positive right side / left side Thigh Thrust Test positive right side / left side Sacral Thrust Test positive right side / left side Imaging: MRI non contrast of the lumbar spine from 06/24/23 reviewed Assessment and plan: Chronic LBP secondary to post laminectomy syndrome, L4-S1 laminectomy w hardware, L SI Fusion, R Sacroiliitis Recommendation of R SI injection #2 w contrast. This will be her second one as she had one 07/12/[address] Ayon without contrast. Risks, benefits of procedure discussed and pt verbalized understanding. All questions answered. I have spent less than 30 minutes on patient care today. Dr Nelson was available by phone for the evaluation of this patient. The time was used to review the medical records including relevant urine studies and Prescription history (MAPs), review of the available imaging, evaluation and examination of the patient, coordination of care with the medical staff and if applicable referring physicians, as well as creation of the medical record PQRS Narrative: Smoking Status Never smoker Hx Alcohol Use (MH) Yes: RARE Home Medications: Ambulatory Orders Aspirin 81 mg PO QAM 10/18/19 Enalapril [Vasotec] 10 mg PO QAM 10/18/19 rOPINIRole HCL [Requip] 1 mg PO HS PRN 10/18/20 Balsalazide Disodium 2,250 mg PO TID 05/09/21 5Hydroxytryptophan(Oxitriptan) [5-Htp] 100 - 200 mg PO QAM 12/19/23 Acetaminophen Tab [Tylenol] 650 mg PO Q4-6H PRN 12/19/23 Alpha Lipoic Acid 600 mg PO QAM 12/19/23 Calcium Carbonate [Calcium] 1,200 mg PO QAM 12/19/23 Cholecalciferol (Vitamin D3) [Vitamin D3 (50 Mcg = 2000 Iu)] 50 mcg PO QAM 12/19/23 Cyanocobalamin (Vitamin B-12) [Vitamin B-12] 1 tab PO QAM 12/19/23 Ferrous Sulfate [Iron (65 MG Elemental)] 325 mg PO QAM 12/19/23 S-Adenosylmethionine Sul Tosyl [Waldemar-E] 400 mg PO QAM 12/19/23 Turmeric Root Extract [Turmeric] 500 mg PO BID 12/19/23 Valerian Root [Valerian] 4,800 mg PO HS 12/19/23 HYDROcodone/APAP 7.5-325MG [[place] 7.5-325] 1 tab PO BID PRN 01/22/24 Cyclobenzaprine [Flexeril] 5 mg PO TID #21 tablet 03/05/24 HYDROcodone/APAP 7.5-325MG [[place] 7.5-325] 1 tab PO Q6HR PRN #18 tab 03/05/24 Sennosides/Docusate Sodium [Senna Plus 8.6-50 mg Softgel] 1 each PO DAILY #20 capsule 03/05/24 Controlled Substance Measures - Controlled Substance Measures Is patient prescribed a controlled substance at discharge?: No
== END ==
LOC: PNWHC3 09:29
PROVIDERS: ATTEND Specialist
DX: M46.1 Sacroiliitis, not elsewhere classified (principal); M96.1 Postlaminectomy syndrome, not elsewhere classified; Z98.1 Arthrodesis status; Z98.890 Other specified postprocedural states; Z88.2 Allergy status to sulfonamides
CPT/HCPCS: 99211

== ENCOUNTER 2024-08-26 09:17 | Day surgery (SDC) | payer MEDICARE ==
[~2024-08-26 09:17] MED LIST changes: +LACTATED RINGERS 1,000 ML IV SCH; -TRANEXAMIC 1,000 MG/100ML-NACL 1,000 MG in SALINE 1 100ML.BAG IVPB PRN
[2024-08-26 09:33] VITALS: TEMP 98.5
[2024-08-26] MEDS ORDERED: IOPAMIDOL M200 10 ML VIAL ONE (10:43)
[2024-08-26] MEDS ORDERED: ROPIVACAINE 5MG/ML 20ML VIAL ONE (10:43)
[2024-08-26] MEDS ORDERED: methylPREDNISolone ACETATE 40 MG/ML 1 ML VIAL ONE (10:43)
--- NOTE | 2024-08-26 10:54 | P.PCN ---
Date of Procedure: 08/26/24 Procedure(s) Performed: Procedure= Right sacroiliac joints steroid injection under fluoroscopy guidance (fluoroscopy image stored on file in the radiology Department ) Preoperative diagnosis= 1-Right sacroiliitis 2-right sacroiliac joint dysfunction Postoperative diagnosis=Same as preop Diagnosis . Complication = none Condition= stable Anesthesia= local anesthesia with ropivacaine 0.5% 2 ml only Indication for the procedure= patient complaining of low back pain , examination was positive for severe tenderness over the right sacroiliac joints ,and patient diagnosed with Right sacroiliitis, for this reason, she was good candidate for sacroiliac joint steroid injection. Description of the procedure= procedure risk and benefits discussed with the patient, including but not limited, risk of infection and bleeding, and ALLERGIC reaction to the medication and not complete pain relief and patient agreed with the preceding patient taken to the operating room, placed in prone position or standard monitors applied to the patient then after induction of anesthesia back prepped with chlorhexidine 3 times , Then under strict sterile technique, first I did the right sacroiliac joint the which was identified under fluoroscopy guidance been local infiltration of the skin and subcu interstitial with lidocaine 1% then 22-gauge Quincke Needle advanced slowly under fluoroscopy and placed in the right sacroiliac joint needle placement confirmed with AP and oblique and lateral view, then after th at Isovue 200 one mL injected which confirmed the correct needle placement with the appropriate arthrogram of the sacroiliac joint, and after appropriate needle placement confirmed and after negative aspiration, or heme , then Ropivacaine 0.5% 2 mL, and 40 mg of Depo-Medrol mixed together and injected in the right sacroiliac joint after negative aspiration patient tolerated the procedure well without any complication.
[2024-08-26 11:00] VITALS: RESP 16
--- NOTE | 2024-08-26 11:05 | FL ---
Fluoroscopic pain management. HISTORY: Low back pain. COMPARISON: None. TECHNIQUE: 7.3 seconds of fluoroscopy and single spot film of the right SI joint is obtained. FINDINGS: Single spot film demonstrates contrast within the SI joint. IMPRESSION: Right SI joint injection as described above. [facility], , 08/26/2024 11:02 AM
[2024-08-26 11:08] VITALS: BP 132/84; PULSE 83
== END 2024-08-26 11:17 | disposition home or self-care (01) ==
LOC: ORPAIN 09:17
PROVIDERS: ATTEND Specialist
DX: M46.1 Sacroiliitis, not elsewhere classified (principal); Z88.2 Allergy status to sulfonamides
CPT/HCPCS: Q9966; J2795; J1010; G0260; 27096

== ENCOUNTER → 2024-09-27 | Outpatient (CLI) | payer MEDICARE ==
[2024-09-27 10:23] VITALS: BP 185/88; PULSE 93; RESP 16; TEMP 97.1
--- NOTE | 2024-09-27 17:17 | P.PAINPG ---
Objective - Vital Signs Vital signs: Intake & Output 09/26/24 09/27/24 09/27/24 18:59 06:59 18:59 Weight 90.718 kg PQRS Measure Charge Sheet Comment: A 73 yr old female with a history of severe and chronic LBP secondary to lumbar post laminectomy syndrome, L4-S1 laminectomy w hardware, L SI Fusion (Feb 2024) presents today for evaluation s/p R SI injection #2. Pt states she experienced 80 % pain relief x 5 days s/p procedure. Pain level is provoked at 9 /10 in intensity, constant, predominantly axial, localized in the lumbar spine, sharp in character w occasional shooting towards the RLE. Pain is provoked by standing/ walking for periods > 10 min. Pain is alleviated with physician guided exercises/ stretches three times weekly since Sep 2023, heat, medications, topical, use of a cane for ambulatory assistance, manual massage, repositioning and rest. Interventional pain procedures completed include BL RFA L3-L5 (Feb 2021), OSMANY L4-L5, L SI Fusion (Feb 2024), R SI x1 (07/12/24) Patient is currently on Tramadol, Neurontin, Tyl, BioFreeze Patient denies any side effects of the medication(s), denies excessive drowsiness or sleepiness, denies suicidal ideation and reports that the current pain medication is helping to control the pain and improve activities of daily living. Patient denies any motor or sensory deficits. Patient denies any fever or night sweats, denies any change in the bowel movements or urination. Physical Examination: -Constitutional: Cooperative. Not in acute distress . - Neurologic: Cranial nerve II to XII intact. No focal neurological deficits. - Psychatric: Alert & oriented x 3. Matching mood & appropriate affect. Judgment and insight intact. - Musculoskeletal: Cervical spine: Muscle bulk/ tone/ strength in the bilateral upper extremities normal Vertebral body tenderness to palpation over Spurling test positive Distraction test positive Facet loading test positive TTP Thoracic spine Muscle bulk / tone/ strength in the bilateral paraspinal muscles normal Vertebral body tender to palpation over Facet loading test positive TTP Lumbar spine: Motor bulk/ tone/ strength lower extremities , thigh and legs : 5/5 Deep tendon reflexes : Normal Knee Jerk. Normal Ankle Jerk . Vertebral body tenderness to palpation over Mcdonald Test positive Lumbar Facet Loading Test positive Straight Leg Raise: positive at 30 degrees right side/ left side Gaenslen's Test positive Sacral spine : Severe tenderness over the Sacroiliac joint: right side / left side Range of motion: Flexion of the lumbar spine <60 degrees Range of motion: Extension of the lumbar spine <20 degrees Gaenslen's Test positive right side / left side Nazia test: positive right side / left side Thigh Thrust Test positive right side / left side Sacral Thrust Test positive right side / left side Imaging: MRI non contrast of the lumbar spine from 06/24/23 reviewed Assessment and plan: Chronic LBP secondary to post laminectomy syndrome, L4-S1 laminectomy w hardware, L SI Fusion, R Sacroiliitis Recommendation of follow up w Dr Ayon to explore additional treatment options. Advised to take BP medication in her possession and to await BP recheck within 30 min before leaving. All questions answered. I have spent less than 30 minutes on patient care today. Dr Nelson was available by phone for the evaluation of this patient. The time was used to review the medical records including relevant urine studies and Prescription history (MAPs), review of the available imaging, evaluation and examination of the patient, coordination of care with the medical staff and if applicable referring physicians, as well as creation of the medical record PQRS Narrative: Smoking Status Never smoker Narcotic Agreement Date Signed 08/05/24 Hx Alcohol Use (MH) Yes: RARE Home Medications: Ambulatory Orders Aspirin 81 mg PO QAM 10/18/19 Enalapril [Vasotec] 10 mg PO QAM 10/18/19 rOPINIRole HCL [Requip] 1 mg PO HS PRN 10/18/20 Acetaminophen Tab [Tylenol] 650 mg PO Q4-6H PRN 12/19/23 Cholecalciferol (Vitamin D3) [Vitamin D3 (50 Mcg = 2000 Iu)] 50 mcg PO QAM 12/19/23 Cyanocobalamin (Vitamin B-12) [Vitamin B-12] 1,000 mcg PO QAM 12/19/23 Ferrous Sulfate [Iron (65 MG Elemental)] 325 mg PO QAM 12/19/23 traMADol HCl [Ultram] 50 mg PO BID 08/24/24 Balsalazide Disodium 2 capsule PO TID 08/26/24 Controlled Substance Measures - Controlled Substance Measures Is patient prescribed a controlled substance at discharge?: No
== END ==
LOC: PNWHC3 09:18
PROVIDERS: ATTEND Specialist
DX: M96.1 Postlaminectomy syndrome, not elsewhere classified (principal); M46.1 Sacroiliitis, not elsewhere classified; G89.29 Other chronic pain; Z88.2 Allergy status to sulfonamides
CPT/HCPCS: 99211

== ENCOUNTER → 2024-10-13 | Outpatient (CLI) | payer MEDICARE ==
[2024-10-13 13:59] LABS: Prothrombin Time 10.9 sec (10.0-12.5)
[2024-10-13 19:52] LABS: HCT 39.4 % (37.2-46.3); HGB 12.5 g/dL (12.0-15.0); MCH 32.7 pg (27.0-32.0); MCHC 31.7 g/dL (32.0-37.0); MCV 103.1 FL (80.0-97.0); Mean Platelet Volume 9.5 FL (9.5-12.2); NRBC Per 100 WBC 0 X 10*3/uL (0.00-0.01); Platelet Count 290 X 10*3/uL (140-440); RBC 3.82 X 10*6/uL (4.10-5.20); RDW 12.3 % (11.5-14.5); WBC 7.62 X 10*3/uL (4.50-10.00)
[2024-10-13 20:07] LABS: ALT 19 U/L (8-44); AST 20 U/L (13-35); Albumin/Globulin Ratio 1.74 Ratio (1.60-3.17); Alkaline Phosphatase 94 U/L (41-126); BUN/Creat Ratio 19.92 Ratio (12.00-20.00); Blood Urea Nitrogen 23.9 mg/dL (9.0-27.0); Calcium 9.4 mg/dL (8.7-10.3); Carbon Dioxide 24.4 mmol/L (21.6-31.8); Chloride 104 mmol/L (96-109); Globulin 2.3 g/dL (1.6-3.3); Glucose 126 mg/dL (70-110); Potassium 4.2 mmol/L (3.5-5.5); Sodium 141 mmol/L (135-145); Total Bilirubin 0.5 mg/dL (0.3-1.2); Total Protein 6.3 g/dL (6.2-8.2)
== END | disposition home or self-care (01) ==
LOC: LABWHC1 13:06
PROVIDERS: ATTEND Orthopaedic Surgery
DX: M13.88 Other specified arthritis, other site (principal); Z22.322 Carrier or suspected carrier of Methicillin resistant Staphylococcus aureus
CPT/HCPCS: 36415; 80053; 82306; 85027; 85610; 86850; 86900; 86901; 87070

== ENCOUNTER 2024-10-19 07:39 | Day surgery (SDC) | payer MEDICARE ==
--- NOTE | 2024-10-18 16:13 | P.HPOR ---
History of Present Illness H&P Date: 10/18/24 .T:Title: RECHECK H1 [facility] [address] [place] [address]| PROVIDER: MELANY ROACH DO CLINICAL SUMMARY: 73-year-old female presents for follow-up of right SI joint pain following an office-based SI joint injection on 07/12/24 which provided 80-90% temporary relief. Patient has a history of successful left SI joint fusion and reports right-sided SI joint pain radiating to her hip, exacerbated by standing, walking, and stairs. She requires elevation of the affected side while sitting and uses a cane for ambulation. Conservative management including Gabapentin, Tramadol, physical therapy, home exercises, and SI belt has been unsuccessful. She has received multiple SI injections both in office and at pain management, all providing >90% relief but only lasting for the day of injection. Physical exam reveals positive provocative testing on the right (Aubrey's, FABER4, Compression, Distraction, Thigh Thrust, Hip Thrust), and imaging shows anterior and posterior osteophytes, sclerosis, joint space narrowing, and subchondral cystic formation of the right SI joint. Given the success of her left SI fusion and failure of conservative measures, right minimally invasive SI joint fusion is recommended. DEMOGRAPHICS: Age: 73 year Height: 5'2" Weight: 200 lbs BP:110/64 BMI: 36.58 kg/m2 Occupation: Retired CC: Right SI joint pain VAS: 8 HISTORY: Ms. Tiwari presents to the office today, 09/02/24, for a recheck of her right SI joint pain following her in office right SI joint injection from 07/12/24. Patient reports 80-90% relief from this injection. She has previously received several SI injections in office and at the hospital by pain management all with greater than 90% relief as well but for only the day of the injection. Patient reports right sided SI joint pain that radiates to her hip. She states her pain is increased with standing and walking. Going up stairs makes worse. She can only sit with this side elevated due to the pain. Patient has a history of left SI joint fusion with significant relief of all sx and she is extremely happy with this procedure. She wants the same for the right side. She is currently taking Gabapentin, Tramadol, and Aspirin without resolution of her symptoms. She has tried PT, Home exercise programs, SI belt with increased pain and sx. She continues to have significant ADL debility due to this. The left side is now fixed and she needs the right side fixed she states. She ambulates independently but needs a cane due to her RIGHT SI joint. * Patient denies any f/c/sob/cp, perineal numbness or tingling, bowel, or bladder incontinence/retention. * The patients past social, medical, family, surgical history, as well as review of systems, have been reviewed. Please refer to the History and Physical form that has been scanned into our electronic medical record system. * 16 points review of systems completed and as stated in HPI, all other systems reviewed are negative. PAST TREATMENTS: PAST IMAGING: -YES, xray, mri, ct - TRAUMA RELATED: -NO - WORK RELATED: -NO - PT IN LAST 6 MONTHS: -YES - PHYSICIAN DIRECTED HOME EXERCISE PROGRAM: -YES - ACTIVITY MODIFICATION: -YES - MEDICATIONS: -YES, Gabapentin, Tramadol, Aspirin - ALTERNATIVE INTERVENTIONS (CHIROPRACTIC, ACUPUNCTURE, MASSAGE, RICE): -YES - BRACING: -NO - INJECTIONS (OSMANY, TF, RFA): -YES, 3 in office and 1 at PMR with contrast. >50% relief from each injection. 70% relief from most recent - MEDICAL HISTORY: Past Medical History: REVIEWED STATED IN CHART Past Surgical History: REVIEWED STATED IN CHART Social History: REVIEWED STATED IN CHART SMOKING: Never smoker ETOH: None SUBSTANCES: None Family History: REVIEWED STATED IN CHART P1 Current Medications: Rx: ASPIRIN EC 81MG ORAL Tablet, Ref: 11 Instructions: Take 1 Tablet ORAL daily. Rx: balsalazide 750 mg capsule Ref: 0 Instructions: take 3 capsules (2,250 mg) by oral route 3 times per day Rx: enalapril maleate 10 mg tablet Ref: 0 Instructions: take 1 tablet (10 mg) by oral route daily Rx: rOPINIRole 1 mg tablet Ref: 0 Instructions: take 1 tablet (1 mg) by oral route 1-3 hours before bedtime prn Rx: Vitamin D2 Ref: 0 Rx: Iron (ferrous sulfate) 325 mg (65 mg iron) tablet Ref: 0 Instructions: take 1 tablet (325 mg) by oral route 2 times per day Rx: predniSONE 10 mg tablet Ref: 0 Instructions: take 1 tablet (10 mg) by oral route 2 times per day Rx: CeleBREX 200 mg capsule Ref: 0 Instructions: take 1 capsule (200 mg) by oral route 2 times per day Rx: methocarbamoL 750 mg tablet Ref: 0 Instructions: take 1 tablet (750 mg) by oral route 3 times per day P1 PHYSICAL EXAM: General: AOX3, NAD, Well hydrate, well nourished HEENT: No lumps or masses Extremities: No color changes, no pooling INTEGUMENT: Appearance: Normal color and turgor Surgical Incisions: N/A Hairy Patches: ABSENT Dorsal Skin Dimples: Normal [employer] spots: ABSENT PALPATION: TTP Midline: NO Paracervical: NO Parathoracic: NO Paralumbar: NO SIJ: YES RIGHT SIJ TESTING (Aubrey's, FABER4, Compression, Distraction, Thigh Thrust, Hip Thrust): TESTED * POSITIVE FINDINGS: Right side Aubrey's, FABER4, Compression, Distraction, Thigh Thrust, Hip Thrust NEGATIVE FINDINGS: LEFT SIDE RESOLVED POSTURAL BALANCE: Coronal: BALANCED Sagittal: BALANCED Shoulder height: LEVEL Pelvic Girdle: LEVEL ROM AND APPEARANCE: Neck: UNRESTRICTED Lumbar: RESTRICTED WITH SIGNIFICANT PAIN Shoulders: Symmetrical Hips: Symmetrical Knees: Symmetrical Hands: Symmetrical Feet: Symmetrical VASCULAR STATUS: PALPABLE PULSES B/L UE AND LE 2/4 RAD/ULNAR/DP/PT Edema: NONE NEUROLOGICAL EXAMINATION: Mental Status: Awake, alert, fully oriented with normal attention, concentration, and memory. Fluent appropriate speech. CRANIAL NERVES: I: Olfactory not assessed. II: Visual acuity normal, no visual field deficit noted with confrontation. III, IV: Normal pupillary reflexes & intact extraocular movements without nystagmus. V, : Intact symmetrical facial sensation. VII: Intact symmetrical facial motor movement: Hearing intact. IX, X: Intact gag, swallow, & normal voice. XI: Sternocleidomastoid, trapezius function intact. XII: Tongue midline with normal movements. TENSIONING: * L'HERMITTE'S SIG:NEG SPURLUNG'S SIGN:NEG UPPER EXTREMITY TENSIONING SIGNS: NEG CUBITAL TUNNEL COMPRESSION:NEG TINELS AT WRIST:NEG STRAIGH LEG RAISE:NEG CONTRALATERAL STRAIGHT LEG RAISE: NEG MOTOR EXAM (0-5/5, NT) Muscle appearance: Symmetrical, without signs of atrophy or dystrophy UPPER EXTREMITY RIGHT LEFT Shoulder Abduction 5 5 Biceps 5 5 Triceps 5 5 Wrist Extension 5 5 Hand Intrinsics 5 5 Contact Lens Curve Grinder 5 5 LOWER EXTREMITY RIGHT LEFT Hip Flexion 5 5 Knee Extension 5 5 Knee Flexion 5 5 Dorsiflexion 5 5 Plantarflexion 5 5 EHL 5 5 FHL 5 5 REFLEXES (0-4/2, NT): RIGHT LEFT Bicep 2 2 Brachioradialis 2 2 Triceps 2 2 Patellar 2 2 Achilles 2 2 PATHOLOGICAL REFLEXES: RIGHT LEFT ANGULO'S ABSENT ABSENT CLONUS ABSENT ABSENT BABINSKI ABSENT ABSENT RECTAL TONE: INTACT/NT SENSATION (0-4, NT): Sensation intact to LT and Pain * C5-T1 distribution BUE * L2-S2 distribution BLE *Exceptions below* DERMATOMAL DEFICIT/RADICULAR PATTERN: NA GAIT AND FUNCTIONAL EVALUATION: AMBULATORY AID None ROMBERG'S TEST INTACT HAND AND FINGER DEXTERITY INTACT YES DYSDIADOCHOKINESIA EXAM NEG B/L YES TOE/HEEL WALK INTACT WITH GOOD BALANCE YES SQUAT AND RISE W/O ASSISTANCE TO 60 DEG KNEE FLEXION NO DUE TO RIGHT SIJ SINGLE LEG STANCE LEFT ABLE. RIGHT NOT ABLE DUE TO PAIN [place] NT IMAGING: Post operative images taken today, 03/24/24, in office are reviewed with patient. Xrays LumbaR/PELIVS AP, Lateral) with AP pelvis; 3 views taken at [facility] demonstrates IMAGES OF THE LEFT SIJ DEMONSTRATE OPTIMAL PLACEMENT OF IMPLANTS FOR SIJ FUSION WITH GOOD HEALING NOTED NO EVIDENCE OF FRACTURE MIGRATION OR LOOSENING OF IMPLANTS. RIGHT SIDE SIJ DEMONSTRATES ANTERIOR AND POSTERIOR OSTEOPHYTES WELL SCLEROSIS, JOINT SPACE NARROWING, SUBCHONDRAL CYSTIC FORMATION. REVIEW OF THE CT SCANS WELL MRI OF THE SI JOINT, PELVIS AND LUMBAR SPINE REVEAL AGAIN RIGHT SIJ PATHOLOGY WITH LEFT RESOLUTION DUE TO SIJ F. SHE HAS THE SAME FINDINGS ON THE RIGHT ON THE LEFT WHICH WERE ABATED BY THE FUSION ON THE LEFT. IMPRESSION: It was my pleasure to have seen and examined Violeta. I reviewed the patient's clinical syndrome, physical findings, and imaging studies during the appointment today. It is my impression that the patient has a diagnosis of. 1.Right sacroiliitis, SEVERE 2.Status post Left SI joint fusion 3. LOW BACK PAIN PLAN: DISCUSSION: -I have discussed with the patient their clinical signs and symptoms, imaging, and treatment options. We have discussed risks, benefits, potential outcomes and natural course as pertains top their issues. The patient understands and would like to proceed as follows below: SURGICAL RECOMMENDATION -RIGHT MINIMALLY INVASIVE SACROILIAC JOINT FUSION APPROACH: MIS LATERAL SIDE: RIGHT DURATION: 1 HR OUTPT IMPLANTS: SI BONE THERAPIES -Cont. with home exercises and home PT exercises as able -Cont. with Heat/Ice as warranted -Cont. with supplementation Vit D, Vit C, Ca2+, High protein diet -OK for massage or other alternative treatment modalities as able. If it exacerbates your sx do not continue ACTIVITY -Recommend walking up to 30 min 2x daily on a flat easy surface with good support. MEDICATIONS -Rx: -Celebrex 200 BID #60 -Robaxin 750 TID #60 -Take as directed -Cont. home medications as directed by your PCP. Check with your PCP for any medication interactions or issues if needed. Spine Surgery Risk Review Ms. Tiwari is presenting for evaluation of right SI joint pain. It was my pleasure to have seen and examined Ms. Tiwari. In our visit today we have had a chance to go over subjective complaints, physical examination findings and treatments including the natural course history without intervention and various interventional options. The patients imaging demonstrates: Post operative images taken today, 03/24/24, in office are reviewed with patient. Xrays LumbaR/PELIVS AP, Lateral) with AP pelvis; 3 views taken at [facility] demonstrates IMAGES OF THE LEFT SIJ DEMONSTRATE OPTIMAL PLACEMENT OF IMPLANTS FOR SIJ FUSION WITH GOOD HEALING NOTED NO EVIDENCE OF FRACTURE MIGRATION OR LOOSENING OF IMPLANTS. RIGHT SIDE SIJ DEMONSTRATES ANTERIOR AND POSTERIOR OSTEOPHYTES WELL SCLEROSIS, JOINT SPACE NARROWING, SUBCHONDRAL CYSTIC FORMATION. REVIEW OF THE CT SCANS WELL MRI OF THE SI JOINT, PELVIS AND LUMBAR SPINE REVEAL AGAIN RIGHT SIJ PATHOLOGY WITH LEFT RESOLUTION DUE TO SIJ F. SHE HAS THE SAME FINDINGS ON THE RIGHT ON THE LEFT WHICH WERE ABATED BY THE FUSION ON THE LEFT. On physical exam, Ms. Tiwari demonstrates: SIGNIFICANT DEBLITY DUE TO HER RIGHT SIJ WITH INCREASED PAIN WITH AMBULATION, GOING UP AND DOWN STARIS, SITTING, STANDING, WALKING ON THE RIGHT SIJ. SHE HAS PAIN THAT RADIATES TO HER HIP FROM THE SIJ AND LOW BACK/SIJ PAIN. SHE HAS POSITIVE PROVOKATIVE SIGNS ON THE RIGHT AND HAS A HX OF A LEFT SIJ FUSION WITH RESOLUTION OF ALL HER SX. SHE HAS HAD INJECTIONS WITH >80-90% RELIEF OF HER SX FOR ONLY 1 DAY AND ALL SX RETURN. THIS HAS BEEN CONFIRMED ON 3 CONSECUTIVE INJECTIONS WITH CONFIRMATION OF SX RESOLUTION AND INJECTION ACCURACY WITH XRAY. SHE HAS TRIALED ALL CONSERVATIVE MEASURES OF WHICH HAVE NOT HELPED HER RIGHT SIJ. I have explained to the patient that as their condition progresses it will cause further neurological deficits and eventual paralysis. Based on the patients imaging, physical exam, and the rapid progression and disabling nature of their symptoms, at this time I recommend surgery in the form of a: Right SI Joint Fusion. I discussed the risk and benefits of this procedure at length with Ms. Tiwari. The patient agreed to considered pursuing the procedure abovementioned. Prior to surgery, she should follow up with her PCP (Cardio, ID, IM etc) for clear ance. Questions were invited and answered, and the patient wishes to proceed as outlined below. Currently, I am recommendin.RIGHT MINIMALLY INVASIVE SACROILIAC JOINT FUSION 2.Follow up with PCP for surgical clearance 3.Review of surgical risks and benefits as well as an educational packet on the proposed surgical procedure. Risks: All surgical procedures come with inherent risks, including those related to positioning, anesthesia, intraoperative findings, and postoperative complications. It is important to understand that surgery does not come with any guarantee of a successful outcome as complications and adverse events are always possible. The patient was given a handout in office today discussing the surgical procedure and risks associated with the intervention, both of which were discussed with the patient. These risks include but are not limited to the following: * Experiencing same, different or even worse symptoms in back, neck, arms, or legs compared to before surgery. Requiring further surgery or other forms of treatment presently or at some time in the future at same or other levels of the intended spine surgery. On an extreme but fortunately relatively rare basis severe complication such as blindness, stroke, heart attack, temporary and/or permanent nerve injury, paralysis, coma, or may occur, sometimes without known explanation. Surgical complications may include but are not limited to risk of infection, fluid accumulation in the surgical dissection site, including a seroma or hematoma, that requires additional surgery, wound drainage, bleeding, new numbness or weakness, vision changes/loss, spinal fluid leakage, non-healing and/or infected incision, headaches, difficulty or inability to swallow, hoarseness, hemopneumothorax, pneumothorax, impotence, retrograde ejaculation, vaginal dryness; injury to nerves, spinal cord, blood vessels, lymphatics or other vital organs (i.e., bowel injury, injury to the great vessels); heterotopic bone formation; complications related to the hardware such as screws, rods, cages including misplaced hardware, device failure, instrumentation at the wrong spine level, hardware fracture/breakage, or hardware loosening; vertebral failure of the spinal column above or below the newly placed hardware; retained surgical instrumentations or devices and the need for further surgery. * Medical risks of the planned spine surgery include but are not limited to generalized Infections to the whole body or local areas outside of the surgical site (sepsis), heart attack, bleeding, anaphylaxis, meningitis, seizure, epilepsy, hearing loss, burn kilgore, laceration of the head or other areas of the body, bruising, hypersensitivity of the skin, bladder over distension; allergic reaction; shoulder injury related to positioning; fat, blood and air clots to other areas of the body like heart, lungs, brain; failure of internal organs such as lungs, kidneys, liver and excessive bleeding. If blood transfusions are necessary, note that transfusions may cause intolerance reactions such as anaphylaxis or other complex reactions. Despite best efforts, the results of spine surgery might not heal in terms of bone, soft tissues such as skin, fascia, ligaments, and joints. Additionally, in order to achieve best possible results, spine surgery may be carried out beyond the initially planned levels and involve decompression, fusion including insertion of hardware at levels other than the original intended area of surgical interest change some portions of the procedure in order to ensure the best possible outcomes. With spine surgery and spinal fusion, there are different off label uses of instrumentation (devices, implants and hardware) as well as biological substances (bone morphogenic proteins, demineralized bone matrix) as well as using extra bone from allograft sources (i.e. cadaver bone) or autograft (iliac crest bone, ribs, or the spine itself). The patient has been given information about these practices and their inherent risks and benefits. [facility] is an educational center that serves as a training facility for neurosurgical and orthopedic [employer] and Nursing students. Physician assistants are medically trained surgical providers who function in the outpatient, inpatient, and operating room setting under the direct supervision of the attending surgeon. [facility] has multiple operating rooms with single and overlapping rooms running daily. They currently function under the required guidelines as produced by the Senate Finance Committee with regards to the overlapping rooms and will continue to comply with changes to this policy as they occur. The requirements include and are complied with as follows: (1) the critical portions of the overlapping rooms will not occur at the same time, (2) the attending physician will be physically present during the critical portions of the procedure and immediately available during the entire case, and (3) a back-up attending is designated should the primary attending not be immediately avail able. The patient has had a chance to review all the listed information, has been given print outs detailing this information, and has had all his/her questions answered to their satisfaction. It was my pleasure to have seen and examined Ms. Tiwari. In our visit today we have had a chance to go over my understanding of our patient's current condition, the natural course history without intervention and various interventional options. Questions were invited and answered, and the patient wishes to proceed as outlined above. I have seen and examined the patient for 25 minutes and we have spent more than 50% of the time in repeat and detailed counseling about the patient's condition, its natural course history with out and as much as can be predicted with surgery and re-review of various surgical treatment options. In conclusion, Ms. Tiwari requested we proceed with the above suggested surgery and are willing to accept risks and limitations of the suggested surgery as nature of the disease process and our best attempts at treatment for the condition. Medical Necessity: Ms. Tiwari has failed extensive conservative management including oral medications (Gabapentin, Tramadol, anti-inflammatories), physical therapy, home exercise programs, and SI belt, with symptoms progressively worsening. She demonstrates significant functional decline requiring a cane for ambulation and can only sit with the affected side elevated. Her VAS pain score is 8/10, significantly impacting her activities of daily living. She has undergone multiple diagnostic SI joint injections (3 in office, 1 at pain management) with consistent greater than 80-90% temporary relief, confirming the SI joint as the pain generator. Additionally, she has a proven history of successful response to surgical intervention, with complete resolution of symptoms following left SI joint fusion. Surgical Rationale: Imaging studies demonstrate right SI joint pathology with anterior and posterior osteophytes, sclerosis, joint space narrowing, and subchondral cystic formation - findings similar to her previously symptomatic left side that resolved with fusion. Physical examination reveals positive provocative testing on all right- sided SI joint maneuvers (Aubrey's, FABER4, Compression, Distraction, Thigh Thrust, Hip Thrust), while the left side remains asymptomatic post-fusion. The patient's notable functional limitations, including inability to perform single leg stance or squat on the right side, combined with diagnostic confirmation through imaging and temporary relief from multiple SI joint injections, strongly support the need for right minimally invasive SI joint fusion. This is further supported by her excellent outcome from the same procedure on the contralateral side. The proposed minimally invasive lateral approach with SI-BONE implants is appropriate for addressing her pathology while minimizing surgical risks. FOLLOW UP: PRE-OP PLAN AT NEXT VISIT: RECHECK PATIENT EDUCATION: Medications Reviewed: YES In our visit today Ms. Tiwari and I have had a chance to go over my understanding of the patient's current condition, the natural course history without intervention and various interventional options. Questions were invited and answered, and the patient wishes to proceed as outlined above. I will be sure to keep you updated after Ms. Tiwari returns here for further follow-up. Thank you again for your referral. Please do not hesitate to contact me if you have any further questions. Signed and authenticated by: Melany Haro [facility] [address] [place] [address] . This message is confidential, intended only for the named recipient(s) and may contain information that is privileged or exempt from disclosure under applicable law. If you are not the intended recipient(s), you are notified that the dissemination, distribution or copying of this information is prohibited. If you received this message in error, please notify the sender then delete this message. Rx: methocarbamoL 750 mg tablet, 60, Ref: 0, take 1 tablet (750 mg) by oral rou te 3 times per day Rx: CeleBREX 200 mg capsule, 60, Ref: 0, take 1 capsule (200 mg) by oral route 2 times per day # SIGNED BY Melany Roach (SONNYO)09/03/2024 09:46AM Past Medical History Past Medical History: Deep Vein Thrombosis (DVT), Hypertension, Osteoarthritis (OA) Additional Past Medical History / Comment(s): DVT IN LEFT LEG- POST OP 2007, ulcerative colitis, hypoglycemia, low back pain History of Any Multi-Drug Resistant Organisms: None Reported Past Surgical History: Appendectomy, Back Surgery, Joint Replacement Additional Past Surgical History / Comment(s): RIGHT AND LEFT KNEE REPLACEMENT, PAIN CLINIC PROCEDURES, colonoscopy, cataract removed, lower spine surg, left SI fusion Past Anesthesia/Blood Transfusion Reactions: No Reported Reaction Smoking Status: Never smoker - Past Family History Mother Family Medical History: Cancer Father Family Medical History: Cancer Additional Family Medical History / Comment(s): LYMPH NODE CANCER Sister(s) Family Medical History: Cancer Additional Family Medical History / Comment(s): SKIN CANCER Medications and Allergies Home Medications Medication Instructions Recorded Confirmed Type Aspirin 81 mg PO QAM 10/18/19 10/15/24 History rOPINIRole HCL [Requip] 1 mg PO HS PRN 10/18/20 10/15/24 History Acetaminophen Tab [Tylenol] 650 mg PO Q4-6H PRN 12/19/23 10/15/24 History Cholecalciferol (Vitamin D3) 50 mcg PO QAM 12/19/23 10/15/24 History [Vitamin D3 (50 Mcg = 2000 Iu)] Cyanocobalamin (Vitamin B-12) 1,000 mcg PO QAM 12/19/23 10/15/24 History [Vitamin B-12] Ferrous Sulfate [Iron (65 MG 325 mg PO QAM 12/19/23 10/15/24 History Elemental)] Balsalazide Disodium 2 capsule PO TID 08/26/24 10/15/24 History Prochlorperazine [Compazine] 5 mg PO DAILY PRN 10/15/24 10/15/24 History amLODIPine BESYLATE/BENAZEPRIL 1 cap PO DAILY 10/15/24 10/15/24 History [amLODIPine BESYLATE/BENAZEPRIL 5-20 mg] Allergies Allergy/AdvReac Type Severity Reaction Status Date / Time Sulfa (Sulfonamide Allergy skin Verified 10/15/24 08:22 Antibiotics) peeling, burning on "inside" sulfasalazine Allergy skin Verified 10/15/24 08:22 [From Azulfidine] peeling, burning on "inside Physical Examination Osteopathic Statement: *. No significant issues noted on an osteopathic structural exam other than those noted in the History and Physical/Consult.
[~2024-10-19 07:39] MED LIST changes: +HYDROmorphone 0.5 MG/0.5 ML SYRINGE IVP PRN; +ONDANSETRON 4 MG/2 ML VIAL IVP PRN; +TRANEXAMIC 1,000 MG/100ML-NACL 1,000 MG in SALINE 1 100ML.BAG IVPB PRN
[2024-10-19] MEDS: IV FLUID CONTINUATION 1,000 ML IV ONE (07:55)
[2024-10-19] MEDS: ONDANSETRON 4 MG/2 ML VIAL IVP ONE (08:34)
[2024-10-19] MEDS: DEXAMETHASONE SOD PHOSPHATE 4 MG/ML 1 ML VIAL IV ONE (08:35)
[2024-10-19] MEDS: ACETAMINOPHEN TAB 500 MG TAB PO PRN (08:35)
[2024-10-19] MEDS: GABAPENTIN 300 MG CAP PO PRN (08:35)
[2024-10-19 08:37] LABS: Glucose,Whole Blood 128 mg/dL (70-110)
[2024-10-19] MEDS: MIDAZOLAM 2 MG/2 ML VIAL IV ONE (09:57)
[2024-10-19] MEDS ORDERED: PHENYLEPHRINE 10 MG/ML VIAL ONE (10:14)
[2024-10-19] MEDS ORDERED: LIDOCAINE 1% INJ 10MG/ML (20 ML MDV) ONE (10:14)
[2024-10-19] MEDS ORDERED: ePHEDrine 50 MG/ML 1 ML VIAL ONE (10:14)
[2024-10-19] MEDS ORDERED: TRANEXAMIC 1,000 MG/100ML-NACL PREMIX BAG ONE (10:14)
[2024-10-19] MEDS ORDERED: SUCCINYLCHOLINE CHLORIDE 200 MG/10 ML VIAL IV ONE (10:14)
[2024-10-19] MEDS ORDERED: PROPOFOL 10 MG/ML 20 ML VIAL IV ONE (10:14)
[2024-10-19] MEDS ORDERED: PHENYLEPHRINE-0.9% NACL SYG 1,000 MCG/10 ML SYRINGE ONE (10:14)
[2024-10-19] MEDS ORDERED: fentaNYL (PF) 50 MCG/ML 2 ML AMP ONE (10:14)
[2024-10-19] MEDS: ROPIVACAINE/EPI/CLONIDINE/KET 50 ML SYRINGE MISCELLANE PRN (10:53)
[2024-10-19] MEDS: LACTATED RINGERS 1,000 ML IV ONE (10:58)
--- NOTE | 2024-10-19 11:55 | P.OP ---
Date of Procedure: 10/19/24 Preoperative Diagnosis: 1.Right sacroiliitis, SEVERE 2.Status post Left SI joint fusion 3. LOW BACK PAIN Postoperative Diagnosis: 1.Right sacroiliitis, SEVERE 2.Status post Left SI joint fusion 3. LOW BACK PAIN Procedure(s) Performed: 1. RIGHT MINIMALLY INVASIVE SACROILIAC JOINT FUSION 2. PELVIC FIXATION 3. USE OF [employer] NAVIGATION FOR ASSISTANCE IN ACCURATE SCREW PLACEMENT USE OF IONM ALL SCREWS TESTING > 25 mA Implants: SI BONE TORQUE SCREWS 50MM 11.5, 11.5 AND 10.0 MM Anesthesia: GETA Surgeon: Mario Ayon Labor Training Manager #1: Rob Miranda (WAS PRESENT AND ASSSITED WITH ALL ASPECTS OF THE CASE FROM POSITIONING TO DRESSING PLACEMENT) Estimated Blood Loss (ml): 15 IV fluids (ml): 1,000 Urine output (ml): 0 Pathology: none sent Condition: stable Disposition: PACU Indications for Procedure: 73-year-old female presents for follow-up of right SI joint pain following an office-based SI joint injection on 07/12/24 which provided 80-90% temporary relief. Patient has a history of successful left SI joint fusion and reports right-sided SI joint pain radiating to her hip, exacerbated by standing, walking, and stairs. She requires elevation of the affected side while sitting and uses a cane for ambulation. Conservative management including Gabapentin, Tramadol, physical therapy, home exercises, and SI belt has been unsuccessful. She has received multiple SI injections both in office and at pain management, all providing >90% relief but only lasting for the day of injection. Physical exam reveals positive provocative testing on the right (Aubrey's, FABER4, Compression, Distraction, Thigh Thrust, Hip Thrust), and imaging shows anterior and posterior osteophytes, sclerosis, joint space narrowing, and subchondral cystic formation of the right SI joint. Given the success of her left SI fusion and failure of conservative measures, right minimally invasive SI joint fusion is recommended. Description of Procedure: RIGHT SI fusion MIS (KYLER) The patient was seen and examined in the preoperative area. All preoperative protocols were followed. Informed consent was obtained, risks and benefits of the procedure were discussed at length. Risks including bleeding infection damage to the surrounding tissue and risk of reoperation were discussed with the patient. Risk of anesthesia up to and including was discussed with the patient. These are outlined in the risk review. They were willing to accept these risks and all of the risks of surgery. The patient was given a weight- based dose of antibiotics in the form of 2 g Ancef. The patient was seen and evaluated by the anesthesia team who deemed them fit for surgery. The site was marked, the patient was willing to proceed with the procedure. The patient was transferred to the operative suite by the Department of anesthesia. They were then drifted off to sleep by the department anesthesia and GETA was performed. The patient tolerated this well. Once confirmation of lines and ventilation the patient was transferred to a [prone Josh table very carefully]. All bony prominences including wrists, elbows, axilla, chest, hips, and thighs, and feet were padded very well. Special attention was paid to the genitalia and these were padded accordingly. SCDs were placed on bilateral lower extremities and were connected. Arms were well padded and placed [on arm boards up and out in the 90/90 position]. Once in position, again we confirmed good ventilation capabilities and that lines were running appropriately. The p atient's lumbopelvic spine was then exposed. 1010s were placed outlining the incision site. Standard alcohol was used to clean the incision site and allowed to dry. C-arm was used to biomark the patient and confirm level for incision which was marked with a skin marker. Operative briefing was performed with all teams and everyone in agreement to proceed. The patient was then prepped and draped in a normal sterile fashion. Timeout was then performed and all parties were in agreement with the procedure to be performed. Skin nicks were made over the PSIS on the left and pins placed into the PSIS for the tracker. Tracker was placed and a 3D Zhiem spin was obtained and registered. Once it was registered it was confirmed to be accurate. Preoperative pelvic CT and SPin were then merged in the Kyler system and screws were pre-planned off the field. Once they were optimal we proceeded with placement. Skin incision was then made over the previously marked area over the RIGHT upper buttock region of the patient following the alar lines and mid sacral line. Blunt dissection was then taken down to the ilium. The first pin was then selected and placed optimally within the SI region superiorly using a navigated Jamshidi to find the path across the SIJ according to the pre planned position on navigation. This was then measured and drilled with a navigated tap and a screw placed using a navigated driver license examiner. This was repeated for the remaining two screws following the previously planned paths as described. All screws had excellent purchase and were confirmed to be in good position on AP lateral inlet and outlet views. Neuro monitoring was then used to test the superior screw for L5 and S1 and these tested above 20 mA. No neuro monitoring changes during surgery, no EMG. Final fluoroscopic images then confirmed good placement of hardware. We then thoroughly irrigated the wound. Deep fascia was closed with 0 Vicryl superficial closed with 2-0 Vicryl and skin closed with strata fix Monocryl. The wound was then cleaned and dressed with skin glue which was allowed to dry and then a Band-Aid. The patient was transferred back to their hospital bed atraumatically. Patient was then awakened and extubated by the department of anesthesia having tolerated the procedure very well with no complications. They were transferred to the postoperative care unit in stable condition.
--- NOTE | 2024-10-19 12:17 | FL ---
Intraoperative/procedural fluoroscopic services were provided for bilateral sacral fusion. Total fluo roscopy time is 58 seconds with a total of 3 submitted images to PACS document folder. Total DAP 1078 .52 cGycm2. Please see the operative note for further details. [facility], , 10/19/2024 12:15 PM
[2024-10-19 12:22] VITALS: TEMP 97.7
[2024-10-19 13:37] VITALS: BP 127/69; PULSE 101; RESP 18
== END 2024-10-19 14:06 | disposition home or self-care (01) ==
LOC: OR 07:39
PROVIDERS: ATTEND Orthopaedic Surgery
DX: M46.1 Sacroiliitis, not elsewhere classified (principal); M13.88 Other specified arthritis, other site; M54.50 Low back pain, unspecified
CPT/HCPCS: 27279; 72100; C1713; J2250; J0330; J1100; J0690; J2405; J2003; J3010; J2704; J2371 ×2

== ENCOUNTER 2025-02-25 10:48 | Emergency (ER) | payer MEDICARE ==
[2025-02-25 11:12] VITALS: TEMP 97.4
--- NOTE | 2025-02-25 11:24 | ED ---
Skin/Abscess/FB HPI - General Chief complaint: Skin/Abscess/Foreign Body Stated complaint: bilateral leg swelling Time Seen by Provider: 02/25/25 11:23 Source: patient, family, RN notes reviewed Mode of arrival: wheelchair Limitations: no limitations - History of Present Illness Initial comments: 74-year-old female presented the ER for evaluation of bilateral lower extremity edema. Daughter, at bedside, is aiding HPI. Patient being sent by Dr. Alphonso shaver for evaluation of this. Daughter reports patient had right sacroiliac surgery completed in September of this year by Dr. Ayon. Daughter reports after surgery patient was cleared for physical therapy and has been attending a local gym with a head animal trainer. Daughter reports about 3 weeks ago she noticed edema to bilateral lower extremities. She states over the past 3 weeks she has noticed gradual worsening of this edema. She states it has been severely worse in the past 2 days. Patient has been following up with Dr. Ayon and did see him in office this morning. He sent patient to emergency department for further evaluation of this lower extremity edema. Daughter also reports patient appears to have on dry bags as well. Patient denies diuretic use or history of CHF. She denies not currently on blood thinner but does state a history of a DVT postoperatively. She denies any fevers, chills, palpitations, chest pain, shortness of breath, dizziness, lightheadedness or other complaints. Denies history of lymphedema. No urinary complaints, constipation/diarrhea. - Related Data Home Medications Medication Instructions Recorded Confirmed Aspirin 81 mg PO DAILY 10/18/19 02/25/25 rOPINIRole HCL [Requip] 1 mg PO HS 10/18/20 02/25/25 Balsalazide Disodium 1,500 mg PO TID-W/MEALS 08/26/24 02/25/25 Prochlorperazine [Compazine] 5 mg PO DAILY PRN 10/15/24 02/25/25 amLODIPine BESYLATE/BENAZEPRIL 1 cap PO DAILY 10/15/24 02/25/25 [amLODIPine BESYLATE/BENAZEPRIL 5-20 mg] Acetaminophen [Tylenol Arthritis] 650 mg PO Q6H PRN 02/25/25 02/25/25 Cyclobenzaprine [Flexeril] 10 mg PO TID PRN 02/25/25 02/25/25 Gabapentin [Neurontin] 300 mg PO TID 02/25/25 02/25/25 Sulfamethox-Tmp 800-160Mg [Bactrim 1 tab PO DIRECTED 02/25/25 02/25/25 DS 800-160 mg] predniSONE [Deltasone] See Taper PO DIRECTED 02/25/25 02/25/25 Previous Rx's Medication Instructions Recorded Apixaban [Eliquis Starter Pack 5 - 10 mg PO DIRECTED 30 Days 02/25/25 (for VTE)] #1 each Furosemide [Lasix] 20 mg PO DAILY 7 Days #7 tab 02/25/25 Potassium Chloride 20 meq PO DAILY #10 cap 02/25/25 Allergies Allergy/AdvReac Type Severity Reaction Status Date / Time Sulfa (Sulfonamide Allergy skin Verified 02/25/25 14:59 Antibiotics) peeling, burning on "inside" sulfasalazine Allergy skin Verified 02/25/25 14:59 [From Azulfidine] peeling, burning on "inside Review of Systems ROS Statement: Those systems with pertinent positive or pertinent negative responses have been documented in the HPI. ROS Other: All systems not noted in ROS Statement are negative. Past Medical History Past Medical History: Deep Vein Thrombosis (DVT), Hypertension, Osteoarthritis (OA) Additional Past Medical History / Comment(s): DVT IN LEFT LEG- POST OP 2007, ulcerative colitis, hypoglycemia, low back pain History of Any Multi-Drug Resistant Organisms: None Reported Past Surgical History: Appendectomy, Back Surgery, Joint Replacement Additional Past Surgical History / Comment(s): RIGHT AND LEFT KNEE REPLACEMENT, PAIN CLINIC PROCEDURES, colonoscopy, cataract removed, lower spine surg, left SI fusion Past Anesthesia/Blood Transfusion Reactions: No Reported Reaction Past Psychological History: No Psychological Hx Reported Smoking Status: Never smoker Past Alcohol Use History: None Reported Past Drug Use History: None Reported - Past Family History Mother Family Medical History: Cancer Father Family Medical History: Cancer Additional Family Medical History / Comment(s): LYMPH NODE CANCER Sister(s) Family Medical History: Cancer Additional Family Medical History / Comment(s): SKIN CANCER General Exam - General Exam Comments Initial Comments: Visual Physical Exam Vital signs reviewed General: Well-appearing, nontoxic, no acute distress. Head: Normocephalic, atraumatic Eyes: PERRLA, EOMI ENT: Airway patent Chest: Nonlabored breathing Skin: No visual rash, normal skin tone, edema bilateral lower extremities Neuro: Alert and oriented 3 Musculoskeletal: No gross abnormalities Limitations: no limitations General appearance: alert, in no apparent distress Eye exam: Present: normal appearance, PERRL, EOMI. Absent: scleral icterus, conjunctival injection, periorbital swelling Respiratory exam: Present: normal lung sounds bilaterally. Absent: respiratory distress, wheezes, rales, rhonchi, stridor Cardiovascular Exam: Present: regular rate, normal rhythm, normal heart sounds. Absent: systolic murmur, diastolic murmur, rubs, gallop, clicks Extremities exam: Present: pedal edema (2+ bilateral pretibial pitting edema. There is also bilateral erythema noted to distal shins. Single vesicle to left first digit.) Neurological exam: Present: alert, oriented X3, CN II-XII intact Skin exam: Present: warm, dry, intact, normal color. Absent: rash Course Vital Signs 02/25/25 02/25/25 02/25/25 11:05 15:48 16:29 Temperature 97.4 F L Pulse Rate 95 99 Respiratory 18 18 20 Rate Blood Pressure 142/77 O2 Sat by Pulse 97 95 Oximetry Medical Decision Making - Medical Decision Making I performed the quick note portion of this chart. Electronically signed by Sheila Dudley PA-C Was pt. sent in by a medical professional or institution ([facility], QA TECH, urgent care, hospital, or intermediate...) When possible be specific @ -Patient sent by Dr. Ayon for evaluation of bilateral lower extremity edema. Did you speak to anyone other than the patient for history (EMS, parent, family, police, friend...)? What history was obtained from this source @ -Patient's daughter, at bedside, aiding in HPI and past medical history. Did you review nursing and triage notes (agree or disagree)? Why? @ -[I reviewed and agree with nursing and triage notes] Were old charts reviewed (outside hosp., previous admission, EMS record, old EKG, old radiological studies, urgent care reports/EKG's, intermediate records)? Report findings @ -[No old charts were reviewed] Differential Diagnosis (chest pain, altered mental status, abdominal pain women, abdominal pain men, vaginal bleeding, weakness, fever, dyspnea, syncope, headache, dizziness, GI bleed, back pain, seizure, CVA, palpatations, mental health, musculoskeletal)? @ -Differential Musculoskeletal Muscular strain, contusion, ligament sprain, fracture, arthritis, septic arthritis, bursitis, cellulitis, muscle spasm, nerve compression, DVT, arterial occlusion, herpes zoster, electrolyte abnormality, tumor.... This is not meant to be in all inclusive list EKG interpreted by me (3pts min.). @ -[As above] X-rays interpreted by me (1pt min.). @ -[None done] CT interpreted by me (1pt min.). @ -[None done] U/S interpreted by me (1pt. min.). @ -[None done] What testing was considered but not performed or refused? (CT, X-rays, U/S, labs)? Why? @ -[None] What meds were considered but not given or refused? Why? @ -[None] Did you discuss the management of the patient with other professionals (professionals i.e. , PA, QA TECH, lab, RT, psych nurse, social problems specialist, chief radiologic technologist, teacher, artillery officer, case briefer)? Give summary @ -[No] Was smoking cessation discussed for >3mins.? @ -[No] Was critical care preformed (if so, how long)? @ -[No] Were there social determinants of health that impacted care today? How? (Homelessness, low income, unemployed, alcoholism, drug addiction, transportation, low edu. Level, literacy, decrease access to med. care, alf, rehab)? @ -[No] Was there de-escalation of care discussed even if they declined (Discuss DNR or withdrawal of care, Hospice)? DNR status @ -[No] What co-morbidities impacted this encounter? (DM, HTN, Smoking, COPD, CAD, Cancer, CVA, ARF, Chemo, Hep., AIDS, mental health diagnosis, sleep apnea, morbid obesity)? @ -[None] Was patient admitted / discharged? Hospital course, mention meds given and route, prescriptions, significant lab abnormalities, going to OR and other pertinent info. @ -[hospital course] Undiagnosed new problem with uncertain prognosis? @ -[No] Drug Therapy requiring intensive monitoring for toxicity (Heparin, Nitro, Insulin, Cardizem)? @ -[No] Were any procedures done? @ -[No] Diagnosis/symptom? @ -[default] Acute, or Chronic, or Acute on Chronic? @ -[default] Uncomplicated (without systemic symptoms) or Complicated (systemic symptoms)? @ -[default] Side effects of treatment? @ -[No] Exacerbation, Progression, or Severe Exacerbation? @ -[No] Poses a threat to life or bodily function? How? (Chest pain, [place], [place], pneumonia, PE, COPD, DKA, ARF, appy, cholecystitis, CVA, Diverticulitis, Homicidal, Suicidal, threat to staff... and all critical care pts) @ -[No] - Lab Data Result diagrams: 02/25/25 11:39 02/25/25 11:39 Lab Results 02/25/25 02/25/25 02/25/25 Range/Units 11:39 11:39 15:48 WBC 5.11 (4.50-10.00) 10*3/uL RBC 3.09 L (4.10-5.20) 10*6/uL Hgb 10.1 L (12.0-15.0) g/dL Hct 30.9 L (37.2-46.3) % MCV 100.0 H (80.0-97.0) fL MCH 32.7 H (27.0-32.0) pg MCHC 32.7 (32.0-37.0) g/dL Plt Count 265 (140-440) 10*3/uL MPV 9.0 L (9.5-12.2) fL Immature Gran % (Auto) 0.4 % Neutrophils % 66.5 % Lymphocytes % 19.2 % Monocytes % 9.6 % Eosinophils % 3.9 % Basophils % 0.4 % Immature Gran # 0.02 (0.00-0.04) 10*3/uL Neutrophils # 3.40 (1.80-7.70) 10*3/uL Lymphocytes # 0.98 (0.90-5.00) 10*3/uL Monocytes # 0.49 (0.20-1.00) 10*3/uL Eosinophils # 0.20 (0.04-0.35) 10*3/uL Basophils # 0.02 (0.00-0.10) 10*3/uL PT 10.4 (10.0-12.5) sec INR 0.9 (<1.2) APTT 23.7 (22.0-30.0) sec Sodium 135 L (137-145) mmol/L Potassium 4.0 (3.5-5.1) mmol/L Chloride 99 (98-107) mmol/L Carbon Dioxide 32 H (22-30) mmol/L Anion Gap 4 mmol/L BUN 31 H (7-17) mg/dL Creatinine 1.15 H (0.52-1.04) mg/dL Est GFR (CKD-EPI)AfAm 54 (>60 ml/min/1.73 sqM) Est GFR (CKD-EPI)NonAf 47 (>60 ml/min/1.73 sqM) Glucose 113 H (74-99) mg/dL Calcium 8.6 (8.4-10.2) mg/dL Total Bilirubin 0.9 (0.2-1.3) mg/dL AST 30 (14-36) U/L ALT 18 (4-34) U/L Alkaline Phosphatase 121 (38-126) U/L Troponin I (0.000-0.034) ng/mL NT-Pro-B Natriuret Pep 338 pg/mL Total Protein 6.1 L (6.3-8.2) g/dL Albumin 3.1 L (3.5-5.0) g/dL /03/16 Range/Units 15:48 WBC (4.50-10.00) 10*3/uL RBC (4.10-5.20) 10*6/uL Hgb (12.0-15.0) g/dL Hct (37.2-46.3) % MCV (80.0-97.0) fL MCH (27.0-32.0) pg MCHC (32.0-37.0) g/dL Plt Count (140-440) 10*3/uL MPV (9.5-12.2) fL Immature Gran % (Auto) % Neutrophils % % Lymphocytes % % Monocytes % % Eosinophils % % Basophils % % Immature Gran # (0.00-0.04) 10*3/uL Neutrophils # (1.80-7.70) 10*3/uL Lymphocytes # (0.90-5.00) 10*3/uL Monocytes # (0.20-1.00) 10*3/uL Eosinophils # (0.04-0.35) 10*3/uL Basophils # (0.00-0.10) 10*3/uL PT (10.0-12.5) sec INR (<1.2) APTT (22.0-30.0) sec Sodium (137-145) mmol/L Potassium (3.5-5.1) mmol/L Chloride (98-107) mmol/L Carbon Dioxide (22-30) mmol/L Anion Gap mmol/L BUN (7-17) mg/dL Creatinine (0.52-1.04) mg/dL Est GFR (CKD-EPI)AfAm (>60 ml/min/1.73 sqM) Est GFR (CKD-EPI)NonAf (>60 ml/min/1.73 sqM) Glucose (74-99) mg/dL Calcium (8.4-10.2) mg/dL Total Bilirubin (0.2-1.3) mg/dL AST (14-36) U/L ALT (4-34) U/L Alkaline Phosphatase (38-126) U/L Troponin I <0.012 (0.000-0.034) ng/mL NT-Pro-B Natriuret Pep pg/mL Total Protein (6.3-8.2) g/dL Albumin (3.5-5.0) g/dL - EKG Data -: EKG Interpreted by Me EKG Comments: EKG taken at 11: 39 showing a sinus rhythm. No ST segment elevations or dep ressions. No T wave inversions. Ventricular rate 94, DC interval 124, QRS duration 75, QT/QTc 356/408. Disposition Clinical Impression: DVT (deep venous thrombosis), Bilateral lower extremity edema Disposition: HOME SELF-CARE Condition: Stable Instructions (If sedation given, give patient instructions): Apixaban (By mouth), Deep Vein Thrombosis (DC), Leg Edema (ED) Additional Instructions: Take Eliquis and Lasix as prescribed. Follow-up with PCP. Return to the ER for any new or worsening concerns I recommend elevation, compression and a low-salt diet for lower extremity edema. Prescriptions: Apixaban [Eliquis Starter Pack (for VTE)] 5 - 10 mg PO DIRECTED 30 Days #1 each Furosemide [Lasix] 20 mg PO DAILY 7 Days #7 tab Potassium Chloride 20 meq PO DAILY #10 cap Is patient prescribed a controlled substance at d/c from ED?: No Referrals: Bebe Winkler MD [Primary Care Provider] - 1-2 days Time of Disposition: 17:15
[2025-02-25 11:53] LABS: Basophils # (A) 0.02 10*3/uL (0.00-0.10); Basophils % (A) 0.4 %; Eosinophils % (A) 3.9 %; HCT 30.9 % (37.2-46.3); HGB 10.1 g/dL (12.0-15.0); Lymphocytes # (A) 0.98 10*3/uL (0.90-5.00); Lymphocytes % (A) 19.2 %; MCH 32.7 pg (27.0-32.0); MCHC 32.7 g/dL (32.0-37.0); Monocytes # (A) 0.49 10*3/uL (0.20-1.00); Monocytes % (A) 9.6 %; Neutrophils % (A) 66.5 %; Platelet Count 265 10*3/uL (140-440); RBC 3.09 10*6/uL (4.10-5.20); RDW 12.8 % (11.5-14.5); WBC 5.11 10*3/uL (4.50-10.00)
[2025-02-25 12:20] LABS: ALT 18 U/L (4-34); African American GFR (CKD) 54 (>60 ml/min/1.73 sqM); Alkaline Phosphatase 121 U/L (38-126); Anion Gap 4 mmol/L; Blood Urea Nitrogen 31 mg/dL (7-17); Calcium 8.6 mg/dL (8.4-10.2); Carbon Dioxide 32 mmol/L (22-30); Chloride 99 mmol/L (98-107); Glucose 113 mg/dL (74-99); Non-African American GFR(CKD) 47 (>60 ml/min/1.73 sqM); Sodium 135 mmol/L (137-145); Total Bilirubin 0.9 mg/dL (0.2-1.3)
[2025-02-25 12:21] LABS: AST 30 U/L (14-36); Albumin 3.1 g/dL (3.5-5.0); Total Protein 6.1 g/dL (6.3-8.2)
[2025-02-25 12:25] LABS: NT-Pro-B-Type Natriuretic Pept 338 pg/mL
--- NOTE | 2025-02-25 14:13 | XR ---
EXAMINATION TYPE: XR chest 2V DATE OF EXAM: 02/25/2025 CLINICAL INDICATION: Female, 74 years old with history of LE edema, difficulty in breathing. TECHNIQUE: Frontal and lateral views of the chest are obtained. COMPARISON: None FINDINGS: There is mild cardiomegaly. There is a large hiatal hernia. There is no suspicious focal a ir space opacity, pleural effusion, or pneumothorax seen. The osseous structures are intact. IMPRESSION: Large hiatal hernia. Mild cardiomegaly without acute pulmonary process. [facility], , 02/25/2025 2:11 PM
--- NOTE | 2025-02-25 15:33 | US ---
EXAMINATION TYPE: US venous doppler duplex LE DATE OF EXAM: 02/25/2025 3:11 PM COMPARISON: NONE CLINICAL INDICATION: Female, 74 years old with history of leg edema; Leg edema x 2 weeks. Hx of DVT i n 2008 in leg. Patient does not take blood thinners. TECHNIQUE: The lower extremity deep venous system is examined utilizing real time linear array sonog arnaud with graded compression, color doppler sonography, and spectral doppler. SIDE PERFORMED: Bilateral FINDINGS: VESSELS IMAGED: Common Femoral Vein Deep Femoral Vein Greater Saphenous Vein * Femoral Vein Popliteal Vein Small Saphenous Vein * Proximal Calf Veins (* superficial vessels) Right Leg: Negative for DVT PTVs and peroneal veins were obscured. Left Leg: There appears to be probable thrombus in one of 2 duplicate popliteal veins. Lack of col or flow seen within, and vessel does not compress. Prox calf veins not well seen. Superficial thrombus seen in small saphenous vein. Vein does not compress or show color flow. PTVs and peroneal veins were obscured. *Edema noted within bilateral legs. IMPRESSION: Bilateral soft tissue subcutaneous edema with acute deep and superficial venous thrombus in the left lower extremity. Deep thrombus is in the distal duplicated left popliteal vein below the knee. [facility], , 02/25/2025 3:31 PM
[2025-02-25 16:16] LABS: INR 0.9 (<1.2); Partial Thromboplastin Time 23.7 sec (22.0-30.0); Prothrombin Time 10.4 sec (10.0-12.5)
[2025-02-25 17:45] VITALS: BP 132/84; PULSE 96; RESP 17
== END 2025-02-25 17:54 | disposition home or self-care (01) ==
LOC: EC 10:48
DX: I82.4Z3 Acute embolism and thrombosis of unspecified deep veins of distal lower extremity, bilateral (principal); Z88.2 Allergy status to sulfonamides; Z88.8 Allergy status to other drugs, medicaments and biological substances; Z79.01 Long term (current) use of anticoagulants
CPT/HCPCS: 36415; 71046; 80053; 83880; 84484; 85025; 85610; 85730; 93005; 93970; 99284